=== PATIENT | female | born 1955 | race Caucasian/White ===

== ENCOUNTER 2019-05-02 10:32 | Inpatient (IN) | payer MEDICARE, OTHER ==
[2019-05-02] MEDS ORDERED: MAGNESIUM SULFATE/D5W 1 GM/100 ML RTUPB IV ONE (10:44)
[2019-05-02] MEDS ORDERED: METHYLPREDNISOLONE INJ 125 MG/2 ML SDV ONE (10:44)
[2019-05-02] MEDS ORDERED: IPRATROPIUM/ALBUTEROL 0.5-2.5 MG/3 ML AMPUL NEB ONE ×2 (10:44→11:08)
[2019-05-02] MEDS: MAGNESIUM SULFATE/D5W 1 GM/100 ML RTUPB IV SCH ×2 (10:47→10:56)
[2019-05-02 10:57] LABS: HEMATOCRIT 41.7 % (36.0-47.0); HEMOGLOBIN 13.9 g/dL (12.0-15.5); MEAN CORPUSCULAR HEMOGLOBIN 31.2 pg (27.0-33.4); MEAN CORPUSCULAR HGB CONC 33.3 g/dL (32.0-36.0); MEAN CORPUSCULAR VOLUME 94 fl (80-97); PLATELET COUNT 204 10^3/uL (150-450); RED BLOOD COUNT 4.46 10^6/uL (3.72-5.28); RED CELL DISTRIBUTION WIDTH 13.7 % (11.5-14.0); WHITE BLOOD COUNT 15.9 10^3/uL (4.0-10.5)
[2019-05-02 11:01] LABS: INTERNATIONAL RATION (INR) 1.12; PROTHROMBIN TIME 14.5 SEC (11.4-15.4)
[2019-05-02] MEDS ORDERED: NORMAL SALINE 1000 ML 2,000 ML IV ONE (11:08)
--- NOTE | 2019-05-02 11:08 | RADIOLOGY REPORT (SQ) ---
EXAM DESCRIPTION: CHEST SINGLE VIEW COMPLETED DATE/TIME: 05/02/2019 10:53 am REASON FOR STUDY: bed t2 sepsis protocol COMPARISON: None. EXAM PARAMETERS: NUMBER OF VIEWS: One view. TECHNIQUE: Single frontal radiographic view of the chest acquired. RADIATION DOSE: NA LIMITATIONS: None. FINDINGS: LUNGS AND PLEURA: Extensive left upper lobe consolidation and ground-glass opacities. Sma ll left effusion. Unremarkable right hemithorax. No pneumothorax. MEDIASTINUM AND HILAR STRUCTURES: No masses. Contour normal. HEART AND VASCULAR STRUCTURES: Normal heart size. Aortic atherosclerosis. BONES: No acute findings. HARDWARE: None in the chest. OTHER: No other significant finding. IMPRESSION: Extensive left upper lobe airspace disease compatible with pneumonia. Small left parapn eumonic effusion. TECHNICAL DOCUMENTATION: JOB ID: [id number] [employer]- All Rights Reserved Reading location - IP/workstation name: [email or web address]
--- NOTE | 2019-05-02 11:09 | ER Document Report ---
Entered by TIARRA ELIZONDO SCRIBE 05/02/19 1044 Acting as scribe for:VALORIE PETERS IV, MD ED General - General Chief Complaint: Shortness Of Breath Stated Complaint: SHORTNESS OF BREATH Mode of Arrival: Medic Information source: Emergency Med Personnel Notes: This 63 year old female patient with a history of COPD brought in by EMS presents to the ED today with complaints of shortness of breath and dyspnea that began prior to arrival per EMS. EMS states that when they arrived on the scene, the patient was laying face down on a table. EMS states that the patient complained of difficulty breathing for the past x3 days and that she was on 5L of O2. EMS reports that the patients lungs were clear initially, but after administering 500 LR Bolus, the patient developed a wheeze. EMS notes that the patient did not complain of reproducible chest pain and that the patient was in a tripod position. EMS states that the patient's CO2 levels were 29-low 30s and that her color has improved upon arrival to the ED. EMS states that the patient is usually 92% on 5L O2 at home. - Related Data Allergies/Adverse Reactions: codeine Allergy (Verified 05/02/19 15:27) Sulfa (Sulfonamide Antibiotics) Allergy (Verified 05/02/19 15:26) Past Medical History - General Information source: Emergency Med Personnel - Social History Smoking Status: Unknown if Ever Smoked Cigarette use (# per day): No Chew tobacco use (# tins/day): No Smoking Education Provided: No Family History: Reviewed & Not Pertinent Pulmonary Medical History: Reports: Hx COPD Review of Systems - Review of Systems Constitutional: No symptoms reported EENT: No symptoms reported Cardiovascular: See HPI, Dyspnea. denies: Chest pain Respiratory: See HPI, Short of breath, Wheezing Gastrointestinal: No symptoms reported Genitourinary: No symptoms reported Female Genitourinary: No symptoms reported Musculoskeletal: No symptoms reported Skin: No symptoms reported Hematologic/Lymphatic: No symptoms reported Neurological/Psychological: No symptoms reported -: Yes All other systems reviewed and negative Physical Exam - Vital signs Vitals: Pulse Ox 92 05/02/19 10:36 - General General appearance: Alert, Other - AAOx3 In distress: Moderate - HEENT Head: Normocephalic, Atraumatic Eyes: Normal Pupils: PERRL - Respiratory Respiratory status: Respiratory distress, Tripod position, Other - Using accessory muscles to breathe Chest status: Nontender Breath sounds: Other - Diminished breath sounds in all lung franco. No: Wheezing Chest palpation: Normal - Cardiovascular Rhythm: Regular Heart sounds: Normal auscultation Murmur: No - Abdominal Inspection: Normal Distension: No distension Bowel sounds: Normal Tenderness: Nontender - Abdomen soft Organomegaly: No organomegaly - Back Back: Normal, Nontender - Extremities General upper extremity: Normal inspection General lower extremity: Normal inspection. No: Edema - No peripheral edema - Neurological Neuro grossly intact: Yes - Psychological Associated symptoms: Normal affect, Normal mood - Skin Skin Temperature: Warm Skin Moisture: Dry Skin Color: Normal Course - Re-evaluation Re-evalutation: 05/02/19 12:01 Discussed with patient need for central line for blood pressure. Patient is refusing to lay flat in the bed. Patient states she is short of breath and is unable to lie flat. Patient states she is also agitated. This MD ordered 2.5 mg of Valium IV and will reassess the patient to see if she feels more comfortable with laying supine for placement of central line. Levophed has been started peripherally at this point. - Vital Signs Vital signs: Temp Pulse Resp BP Pulse Ox 100.4 F 96 26 H 101/66 96 05/02/19 19:14 05/02/19 18:00 05/02/19 19:14 05/02/19 19:14 05/02/19 19:14 - Laboratory Result Diagrams: 05/02/19 10:38 05/02/19 10:38 Laboratory results interpreted by me: 05/02/19 05/02/19 05/02/19 10:38 10:38 10:40 WBC 15.9 H Seg Neuts % (Manual) 87 H Lymphocytes % (Manual) 2 L Abs Neuts (Manual) 14.5 H Abs Lymphs (Manual) 0.3 L VBG pH Sodium 134.8 L Potassium 2.8 L* Chloride 96 L Est GFR ( Amer) 56 L Est GFR (MDRD) Non-Af 46 L Lactic Acid 3.7 H Direct Bilirubin 0.5 H Total Protein 4.9 L Albumin 2.5 L 05/02/19 10:51 WBC Seg Neuts % (Manual) Lymphocytes % (Manual) Abs Neuts (Manual) Abs Lymphs (Manual) VBG pH 7.25 L Sodium Potassium Chloride Est GFR ( Amer) Est GFR (MDRD) Non-Af Lactic Acid Direct Bilirubin Total Protein Albumin - EKG Interpretation by Me Additional EKG results interpreted by me: 05/02/19 12:32 EKG obtained at 1040 hrs. on 05/29/2019 was interpreted by this MD. Findings sinus tachycardia with a rate of 114, normal axis, P waves preceding QRS complexes, QRS complexes appear narrow, there is no obvious evidence of ST segment elevation or depression to suggest acute myocardial injury or infarction. Impression sinus tachycardia with nonspecific ST segments. - Consults DR. ULLOA Time consulted: 11:50 - Dr. Ulloa stated the patient needs a central line Reason for consultation: 05/02/19 12:02 Pneumonia with BiPAP on vasopressor Consulted provider: will come to ER Critical Care Note - Critical Care Note Total time excluding time spent on procedures (mins): 60 Discharge - Discharge Clinical Impression: Left upper lobe pneumonia, Sepsis Condition: Critical Disposition: ADMITTED INPATIENT Admitting Provider: LAILA COW WASHER Unit Admitted: ICU I personally performed the services described in the documentation, reviewed and edited the documentation which was dictated to the scribe in my presence, and it accurately records my words and actions.
[2019-05-02 11:13] LABS: VENOUS BLOOD BASE EXCESS -1.7 mmol/L; VENOUS BLOOD HCO3 26.7 mmol/L (20-32); VENOUS BLOOD PCO2 62.4 mmHg (35-63); VENOUS BLOOD PH 7.25 (7.30-7.42)
[2019-05-02 11:18] LABS: ALBUMIN 2.5 g/dL (3.5-5.0); ALKALINE PHOSPHATASE 103 U/L (38-126); ANION GAP 11 (5-19); ASPARTATE AMINO TRANSFERASE 15 U/L (14-36); BILIRUBIN,DIRECT 0.5 mg/dL (0.0-0.4); BLOOD UREA NITROGEN 16 mg/dL (7-20); CALCIUM 8.4 mg/dL (8.4-10.2); CARBON DIOXIDE 28 mmol/L (22-30); CHLORIDE 96 mmol/L (98-107); GLUCOSE 86 mg/dL (75-110); TOTAL PROTEIN 4.9 g/dL (6.3-8.2)
[2019-05-02 11:23] LABS: ABSOLUTE LYMPHOCYTES# (MANUAL) 0.3 10^3/uL (0.5-4.7); ABSOLUTE MONOCYTES # (MANUAL) 1.1 10^3/uL (0.1-1.4); BAND NEUTROPHILS % (MANUAL) 4 % (3-5); BASOPHILS % (MANUAL) 0 % (0-2); EOSINOPHILS % (MANUAL) 0 % (0-6); LYMPHOCYTES % (MANUAL) 2 % (13-45); MONOCYTES % (MANUAL) 7 % (3-13); SEGMENTED NEUTROPHILS % (MAN) 87 % (42-78); TOTAL CELLS COUNTED 100
[2019-05-02 11:24] LABS: PLATELET COMMENT ADEQUATE
[2019-05-02 11:25] LABS: PLATELET LARGE PRESENT; POLYCHROMASIA SLIGHT
[2019-05-02 11:29] LABS: POTASSIUM 2.8 mmol/L (3.6-5.0)
[2019-05-02] MEDS ORDERED: LEVOFLOXACIN 750 MG/D5W RTU 750 MG/150 ML RTUPB IV ONE ×2 (11:36→11:53)
[2019-05-02] MEDS ORDERED: NORMAL SALINE IV ONE (11:36)
[2019-05-02] MEDS ORDERED: PIPERACILLIN/TAZOBACTAM 4.5 GM VIAL IV ONE ×2 (11:36→13:48)
[2019-05-02] MEDS ORDERED: DEXTROSE 5%-WATER 250 ML with NOREPINEPHRINE BITARTRATE 4 MG IV PRN ×2 (11:45)
[2019-05-02] MEDS ORDERED: NOREPINEPHRINE BITARTRATE INJ/PF 4 MG/4 ML SDV IV ONE ×3 (11:54→14:58)
[2019-05-02] MEDS ORDERED: DIAZEPAM INJ 10 MG/2 ML DISP.SYRIN IV ONE (11:59)
[2019-05-02] MEDS ORDERED: PROPOFOL 1,000 MG/100 ML INFUS..BTL IV PRN ×2 (13:06→13:22)
[2019-05-02] MEDS ORDERED: PROPOFOL INJ 200 MG/20 ML VIAL IV ONE ×4 (13:11→14:16)
[2019-05-02] MEDS ORDERED: NORMAL SALINE 1000 ML 1,000 ML IV PRN (13:22)
[2019-05-02] MEDS ORDERED: ACETAMINOPHEN 325 MG TABLET PO PRN (13:22)
[2019-05-02] MEDS ORDERED: ONDANSETRON 4 MG TAB.RAPDIS NG PRN (13:22)
[2019-05-02] MEDS ORDERED: SUCCINYLCHOLINE CHLORIDE INJ 200 MG/10 ML VIAL IV ONE ×2 (13:28→13:32)
[2019-05-02] MEDS ORDERED: PHARMACY COMMUNICATION ORDER MC NR (13:30)
[2019-05-02] MEDS ORDERED: ETOMIDATE INJ/PF 20 MG/10 ML SDV IV ONE (13:31)
--- NOTE | 2019-05-02 13:38 | Operative Report ---
Bedside Procedure - History of Present Illness History of Present Illness: COPD and CAP. Septic shock Indication for Procedure: Need levophed Date: 05/02/19 Provider: SAGRARIO ULLOA - Central Line Right Internal jugular Time completed: 13:00 Central line pre-insertion: Sterile PPE donned, Chloraprep applied, Sterile drapes applied Central line lumen type: Triple Anesthetic type: 1% Lidocaine mL's of anesthesia: 3 Ultrasound guided: No Line secured with sutures: Yes Central line post-insertion: Blood return from lumens, Sutured, Sterile dressing applied, Position confirmed w/ CXR Complications: No
[2019-05-02] MEDS ORDERED: ACETAMINOPHEN SOLN 325 MG/10.15 ML UDCUP NG PRN (13:40)
--- NOTE | 2019-05-02 13:50 | RADIOLOGY REPORT (SQ) ---
EXAM DESCRIPTION: CHEST SINGLE VIEW COMPLETED DATE/TIME: 05/02/2019 1:36 pm REASON FOR STUDY: ETT TUBE, CENTRAL LINE, NG TUBE PLACEMENT COMPARISON: Same day radiograph EXAM PARAMETERS: NUMBER OF VIEWS: One view. TECHNIQUE: Single frontal radiographic view of the chest acquired. RADIATION DOSE: NA LIMITATIONS: None. FINDINGS: LUNGS AND PLEURA: Persistent dense left upper lobe airspace disease and small effusion. U nremarkable right hemithorax. No pneumothorax. MEDIASTINUM AND HILAR STRUCTURES: Stable. HEART AND VASCULAR STRUCTURES: Stable. BONES: No acute findings. HARDWARE: Endotracheal tube tip overlies midthoracic trachea, 5 cm above the didi. Right internal jugular central venous catheter tip at cavoatrial junction. Enteric tube tip overlies distal esophag us. OTHER: No other significant finding. IMPRESSION: 1. Endotracheal tube tip overlies midthoracic trachea. 2. Anterior to overlies distal esophagus. Recommend repositioning and advancing at least 10 cm. 3. Right internal jugular central venous catheter tip at cavoatrial junction. No pneumothorax. RECOMMENDATIONS: Repositioning TECHNICAL DOCUMENTATION: JOB ID: [id number] [employer]- All Rights Reserved Reading location - IP/workstation name: [email or web address]
--- NOTE | 2019-05-02 13:55 | CRITICAL CARE ADMISSION REPORT ---
HPI Date:: 05/02/19 Time:: 13:00 Reason for ICU Reason:: Intubated for CAP, septic shock. HPI: The patient is a 63 year old woman with known severe COPD on 5 L O2 at home. She has been getting more SOB at home and is sleepy and not well arousable. She has a YONI CAP by CAXR and is tripoding in position, unable to talk much and willing to accept intubation. She has been intubated with a #7 ETT under etomidate sedation by myself. She tolerated this and central line placement well. History obtained from:: Pt and - Diagnosis/Plan (1) Septic shock Is this a current diagnosis for this admission?: Yes Plan: She has WBC > 15. Tachypnea > 25 and tachycardia > 100 and is on levophed after volume loading. With a lactate of 4.1 this qualifies for septic shock. She will be treated with antibiotics, levophed, IVF and steroids. (2) Hypoadrenalism Is this a current diagnosis for this admission?: Yes Plan: She is on 10mg a day of prednisone down recently from 20mg. This in the face of septic shock makes her hypoadrenal. Treat with stress steroids. (3) COPD exacerbation Is this a current diagnosis for this admission?: Yes Plan: Undoubtably triggered by her pneumonia. Treat with steroids, breathing treatments. (4) Left upper lobe pneumonia Is this a current diagnosis for this admission?: Yes Plan: CAP, likely a strep pneumoniae. Treat with levoquin - . Plan Summary: As above in the ICU Past Medical History Pulmonary Medical History: Reports: Chronic Obstructive Pulmonary Disease (COPD) Social/Family History - Social History Smoking Status: Unknown if Ever Smoked Review of Systems ROS unobtainable: Due to endotracheal tube Respiratory: PRESENT: dyspnea Physical Exam Vital Signs: Temp Pulse Resp BP Pulse Ox 21 H 80/61 L 97 05/02/19 12:16 05/02/19 12:16 05/02/19 12:16 Intake & Output 05/01/19 05/02/19 05/03/19 06:59 06:59 06:59 Intake Total 2208 Balance 2208 Weight 73.1 kg Weight/Height Weight 73.1 kg Height 5 ft 6 in General appearance: PRESENT: severe distress Head exam: PRESENT: atraumatic, normocephalic Eye exam: PRESENT: conjunctiva pink, EOMI, PERRLA. ABSENT: scleral icterus Ear exam: PRESENT: normal external ear exam Mouth exam: PRESENT: moist, tongue midline Respiratory exam: PRESENT: accessory muscle use, decreased breath sounds, prolonged expiratory phas, retraction Cardiovascular exam: PRESENT: tachycardia GI/Abdominal exam: PRESENT: normal bowel sounds, soft. ABSENT: distended, guarding, mass, organolmegaly, rebound, tenderness Rectal exam: PRESENT: deferred Gentrourinary exam: PRESENT: indwelling catheter Extremities exam: PRESENT: full ROM Musculoskeletal exam: PRESENT: normal inspection Neurological exam: PRESENT: altered, other - Sedated, sleepy before intubation. Skin exam: PRESENT: dry, intact, warm. ABSENT: cyanosis, rash Tubes/Lines: PRESENT: Endotracheal Tube, Central Line, Nasogastic Tube Laboratory/Radiographs Laboratory Results: 05/02/19 10:38 05/02/19 10:38 05/02/19 05/02/19 05/02/19 10:38 10:38 10:40 WBC 15.9 H RBC 4.46 Hgb 13.9 Hct 41.7 MCV 94 MCH 31.2 MCHC 33.3 RDW 13.7 Plt Count 204 Seg Neutrophils % Not Reportable VBG pH VBG pCO2 VBG HCO3 VBG Base Excess Sodium 134.8 L Potassium 2.8 L* Chloride 96 L Carbon Dioxide 28 Anion Gap 11 BUN 16 Creatinine 1.18 Est GFR ( Amer) 56 L Glucose 86 Lactic Acid 3.7 H Calcium 8.4 Total Bilirubin 1.0 AST 15 Alkaline Phosphatase 103 Total Protein 4.9 L Albumin 2.5 L 05/02/19 10:51 WBC RBC Hgb Hct MCV MCH MCHC RDW Plt Count Seg Neutrophils % VBG pH 7.25 L VBG pCO2 62.4 VBG HCO3 26.7 VBG Base Excess -1.7 Sodium Potassium Chloride Carbon Dioxide Anion Gap BUN Creatinine Est GFR ( Amer) Glucose Lactic Acid Calcium Total Bilirubin AST Alkaline Phosphatase Total Protein Albumin 05/02/19 10:38 Troponin I < 0.012 Impressions: Chest X-Ray 05/02/19 10:36 IMPRESSION: Extensive left upper lobe airspace disease compatible with pneumonia. Small left parapneumonic effusion. All labs, radiographs, diagnostic studies and EKGs were personally reviewed: Yes In addition, reports of radiographic and diagnostic studies were read: Yes Critical Time Critical Time (minutes): 40 -: The care of a critically ill patient is dynamic. This note represents a static moment in the admission process. Orders and treatments may be given simul taneously and urgently, and time is not claim service representative of the treatment process. This patient requires Critical Care secondary to life threatening organ or limb dysfunction. Without Critical Care services, the patient is at risk for increased mortality and morbidity.
--- NOTE | 2019-05-02 14:29 | RADIOLOGY REPORT (SQ) ---
EXAM DESCRIPTION: KUB/ABDOMEN (SINGLE VIEW) COMPLETED DATE/TIME: 05/02/2019 2:06 pm REASON FOR STUDY: Check Placement of NG Tube COMPARISON: None. NUMBER OF VIEWS: Two images from 1357 hours 05/02/2019 TECHNIQUE: Supine radiographic image of the abdomen acquired for nasogastric tube placement. LIMITATIONS: None. FINDINGS: Stomach is distended with air. Initial film demonstrates the nasogastric tube tip at the GE junction. Second film demonstrates the tube has been advanced 10 cm, with the tip in the stomach and side port at the GE junction. Stomach is distended. Remainder of the GI tract is decompressed. Clips right upper quadrant post cholecystectomy. Lung ba ses are grossly clear. IMPRESSION: Nasogastric tube tip in the stomach, side port at the GE junction. Mild persistent gase ous distention of the stomach. TECHNICAL DOCUMENTATION: JOB ID: [id number] [employer]- All Rights Reserved Reading location - IP/workstation name: [email or web address]
[2019-05-02] MEDS ORDERED: DEXMEDETOMIDINE IN 0.9 % NACL 400 MCG/100 ML RTUPB IV ONE (14:43)
[2019-05-02] MEDS: IPRATROPIUM/ALBUTEROL 0.5-2.5 MG/3 ML AMPUL NEB SCH ×2 (14:54→21:02)
[2019-05-02] MEDS ORDERED: AZITHROMYCIN INJ 500 MG VIAL IV ONE (15:17)
[2019-05-02] MEDS ORDERED: IBUPROFEN 800 MG TABLET PO PRN (15:20)
[2019-05-02] MEDS: POTASSIUM CHLORIDE 20 MEQ/50 ML RTU IV SCH ×3 (15:39→20:52)
[2019-05-02] MEDS: FAMOTIDINE INJ/PF 20 MG/2 ML SDV IV SCH ×2 (15:40→21:12)
[2019-05-02] MEDS: ENOXAPARIN SODIUM INJ 40 MG/0.4 ML DISP.SYRIN SUBCUT SCH (15:40)
[2019-05-02] MEDS: LORAZEPAM INJ 2 MG/1 ML VIAL IV PRN ×2 (15:48→18:57)
[2019-05-02] MEDS: HYDROCORTISONE SOD SUCCINATE INJ/PF 100 MG/2 ML SDV IV SCH ×2 (15:55→21:11)
[2019-05-02] MEDS ORDERED: DEXMEDETOMIDINE IN NS 400 MCG/100 ML RTUPB IV PRN (16:11)
[2019-05-02] MEDS ORDERED: PHENYLEPHRINE HCL INJ/PF 10 MG/1 ML SDV ONE (17:43)
[2019-05-02] MEDS: DEXTROSE 5%-WATER 250 ML with NOREPINEPHRINE BITARTRATE 4 MG IV PRN ×4 (17:58→22:56)
[2019-05-02] MEDS ORDERED: AZITHROMYCIN 500 MG in DEXTROSE 5%-WATER 250 ML IV SCH (18:00)
[2019-05-02] MEDS: DEXTROSE 5%-WATER 250 ML with PHENYLEPHRINE HCL 40 MG IV PRN ×2 (18:04)
[2019-05-02 18:25] LABS: ARTERIAL BLOOD BASE EXCESS -8.5 mmol/L; ARTERIAL BLOOD H2CO3 1.05 mmol/L (1.05-1.35); ARTERIAL BLOOD HCO3 16.9 mmol/L (20-24); ARTERIAL BLOOD TOTAL CO2 17.9 mmol/L (21-25)
[2019-05-02 18:27] LABS: ARTERIAL BLOOD FIO2 40%
[2019-05-02] MEDS: FENTANYL CITRATE/PF 600 MCG/60 ML BAG IV PRN (19:08)
[2019-05-02 19:09] LABS: A TYPE INFLUENZA AG NEGATIVE (NEGATIVE); B INFLUENZA AG NEGATIVE (NEGATIVE)
--- NOTE | 2019-05-02 19:33 | EKG REPORT ---
SEVERITY:- BORDERLINE ECG - SINUS TACHYCARDIA RIGHT BUNDLE BRANCH BLOCK AND LEFT POST FASCICULAR BLOCK. BORDERLINE T ABNORMALITIES, ANT-LAT LEADS : Confirmed by: Valeriano Rodriguez MD 02-May-2019 19:32:56
[2019-05-02] MEDS: NORMAL SALINE 1000 ML 1,000 ML IV PRN (19:58)
[2019-05-02] MEDS ORDERED: NORMAL SALINE INJ/PF 0.9% 10 ML SDV IV PRN (20:10)
[2019-05-02] MEDS ORDERED: SUCCINYLCHOLINE CHLORIDE INJ 200 MG/10 ML VIAL ONE (20:12)
[2019-05-02] MEDS: TRAZODONE HCL 50 MG TABLET PO SCH (21:11)
[2019-05-02] MEDS: SENNOSIDES/DOCUSATE 8.6-50 MG 1 EACH TABLET PO SCH (21:11)
[2019-05-02] MEDS: CEFTRIAXONE 1 GM/D5W RTU 1 GM/50 ML RTUPB IV SCH (21:12)
[2019-05-02] MEDS ORDERED: (PENDING PHARMACY ID) (Trazodone Hcl [Desyrel] 100 MG) PO SCH (22:00)
[2019-05-03 00:13] LABS: ARTERIAL BLOOD BASE EXCESS -11.9 mmol/L; ARTERIAL BLOOD H2CO3 1.02 mmol/L (1.05-1.35); ARTERIAL BLOOD HCO3 14.4 mmol/L (20-24); ARTERIAL BLOOD O2 SATURATION 89.8 % (94-98); ARTERIAL BLOOD PCO2 33.8 mmHg (35-45); ARTERIAL BLOOD PH 7.25 (7.35-7.45); ARTERIAL BLOOD PO2 65.4 mmHg (80-100); ARTERIAL BLOOD TOTAL CO2 15.4 mmol/L (21-25)
[2019-05-03 00:15] LABS: ARTERIAL BLOOD FIO2 30%
[2019-05-03 00:24] LABS: BLOOD UREA NITROGEN 18 mg/dL (7-20); CHLORIDE 107 mmol/L (98-107); GLUCOSE 176 mg/dL (75-110); PHOSPHORUS 4.4 mg/dL (2.5-4.5)
[2019-05-03 00:35] LABS: POTASSIUM 5.3 mmol/L (3.6-5.0)
[2019-05-03 00:36] LABS: ANION GAP 9 (5-19)
[2019-05-03 00:38] LABS: CARBON DIOXIDE 16 mmol/L (22-30)
[2019-05-03 00:39] LABS: CALCIUM 6.1 mg/dL (8.4-10.2)
[2019-05-03] MEDS: DEXTROSE 5%-WATER 250 ML with PHENYLEPHRINE HCL 40 MG IV PRN ×4 (01:04→08:34)
[2019-05-03] MEDS: NORMAL SALINE 1000 ML 1,000 ML IV PRN ×5 (01:04→19:55)
[2019-05-03] MEDS ORDERED: SODIUM BICARBONATE 8.4% INJ 50 MEQ/50 ML DISP.SYRIN ONE ×2 (01:10→01:25)
[2019-05-03] MEDS: DEXTROSE 5%-WATER 1000 ML 1,000 ML with SODIUM BICARBONATE 150 MEQ IV PRN ×4 (01:35→14:02)
[2019-05-03] MEDS ORDERED: SODIUM BICARBONATE 8.4% INJ 50 MEQ/50 ML DISP.SYRIN IV ONE (01:45)
[2019-05-03] MEDS: FENTANYL CITRATE/PF 600 MCG/60 ML BAG IV PRN ×4 (01:47→19:54)
[2019-05-03] MEDS: IPRATROPIUM/ALBUTEROL 0.5-2.5 MG/3 ML AMPUL NEB SCH ×4 (02:23→20:24)
[2019-05-03 04:31] LABS: HEMATOCRIT 34.2 % (36.0-47.0); MEAN CORPUSCULAR HEMOGLOBIN 31.3 pg (27.0-33.4); MEAN CORPUSCULAR HGB CONC 33.6 g/dL (32.0-36.0); MEAN CORPUSCULAR VOLUME 93 fl (80-97); PLATELET COUNT 151 10^3/uL (150-450); RED BLOOD COUNT 3.66 10^6/uL (3.72-5.28); RED CELL DISTRIBUTION WIDTH 13.7 % (11.5-14.0); WHITE BLOOD COUNT 19.7 10^3/uL (4.0-10.5)
[2019-05-03 04:39] LABS: ANION GAP 8 (5-19); BLOOD UREA NITROGEN 18 mg/dL (7-20); CARBON DIOXIDE 20 mmol/L (22-30); CHLORIDE 107 mmol/L (98-107); GLUCOSE 178 mg/dL (75-110); POTASSIUM 4.6 mmol/L (3.6-5.0)
[2019-05-03 05:08] LABS: HEMOGLOBIN 11.5 g/dL (12.0-15.5)
[2019-05-03 05:12] LABS: ABSOLUTE LYMPHOCYTES# (MANUAL) 0.4 10^3/uL (0.5-4.7); ABSOLUTE MONOCYTES # (MANUAL) 0.8 10^3/uL (0.1-1.4); BAND NEUTROPHILS % (MANUAL) 1 % (3-5); BASOPHILS % (MANUAL) 0 % (0-2); EOSINOPHILS % (MANUAL) 0 % (0-6); LYMPHOCYTES % (MANUAL) 2 % (13-45); MONOCYTES % (MANUAL) 4 % (3-13); SEGMENTED NEUTROPHILS % (MAN) 93 % (42-78); TOTAL CELLS COUNTED 100
[2019-05-03 05:14] LABS: BURR CELLS 2+; OVALOCYTES 1+; POIKILOCYTOSIS 1+; TOXIC GRANULATION 1+
[2019-05-03 05:15] LABS: PLATELET COMMENT ADEQUATE
[2019-05-03] MEDS: HYDROCORTISONE SOD SUCCINATE INJ/PF 100 MG/2 ML SDV IV SCH ×3 (05:17→21:36)
[2019-05-03] MEDS ORDERED: PHENYLEPHRINE HCL INJ/PF 10 MG/1 ML SDV ONE (08:29)
[2019-05-03] MEDS: CEFTRIAXONE 1 GM/D5W RTU 1 GM/50 ML RTUPB IV SCH ×2 (09:24→21:35)
[2019-05-03] MEDS: FAMOTIDINE INJ/PF 20 MG/2 ML SDV IV SCH ×2 (09:24→21:36)
[2019-05-03] MEDS: ENOXAPARIN SODIUM INJ 40 MG/0.4 ML DISP.SYRIN SUBCUT SCH (09:25)
[2019-05-03] MEDS: PAROXETINE HCL 20 MG TABLET PO SCH (09:26)
[2019-05-03] MEDS: BUSPIRONE HCL 10 MG TABLET PO SCH (09:26)
[2019-05-03] MEDS ORDERED: LEVOFLOXACIN 500 MG/D5W RTU 500 MG/100 ML RTUPB IV SCH (10:00)
[2019-05-03] MEDS ORDERED: (PENDING PHARMACY ID) (Buspirone Hcl [Buspar 15 Mg Tablet] 1 TAB) PO SCH (10:00)
[2019-05-03] MEDS ORDERED: CALCIUM GLUCONATE 1000 MG/10 ML INJ IV ONE ×2 (10:49→15:13)
[2019-05-03] MEDS: CALCIUM GLUCONATE 1000 MG/10 ML INJ IV PRN ×5 (10:58→16:20)
[2019-05-03] MEDS: DEXTROSE 5%-WATER 250 ML with NOREPINEPHRINE BITARTRATE 4 MG IV PRN ×4 (14:14→22:20)
[2019-05-03] MEDS: MEROPENEM 1 GM in NORMAL SALINE 50 ML IV SCH (15:16)
[2019-05-03 19:26] LABS: ALBUMIN 1.7 g/dL (3.5-5.0); ALKALINE PHOSPHATASE 148 U/L (38-126); ANION GAP 5 (5-19); ASPARTATE AMINO TRANSFERASE 279 U/L (14-36); BILIRUBIN,DIRECT 0.5 mg/dL (0.0-0.4); BILIRUBIN,TOTAL 0.7 mg/dL (0.2-1.3); BLOOD UREA NITROGEN 15 mg/dL (7-20); CARBON DIOXIDE 23 mmol/L (22-30); CHLORIDE 104 mmol/L (98-107); GLUCOSE 141 mg/dL (75-110); POTASSIUM 3.9 mmol/L (3.6-5.0); TOTAL PROTEIN 3.7 g/dL (6.3-8.2)
[2019-05-03] MEDS: TRAZODONE HCL 50 MG TABLET PO SCH (21:35)
[2019-05-03] MEDS: SENNOSIDES/DOCUSATE 8.6-50 MG 1 EACH TABLET PO SCH (21:35)
[2019-05-04] MEDS: LORAZEPAM INJ 2 MG/1 ML VIAL IV PRN ×3 (00:49→18:57)
[2019-05-04] MEDS: FENTANYL CITRATE/PF 600 MCG/60 ML BAG IV PRN ×2 (01:51→08:55)
[2019-05-04] MEDS: IPRATROPIUM/ALBUTEROL 0.5-2.5 MG/3 ML AMPUL NEB SCH ×4 (02:53→20:14)
[2019-05-04 04:44] LABS: HEMATOCRIT 30.1 % (36.0-47.0); HEMOGLOBIN 10.2 g/dL (12.0-15.5); MEAN CORPUSCULAR HEMOGLOBIN 31.1 pg (27.0-33.4); MEAN CORPUSCULAR HGB CONC 33.8 g/dL (32.0-36.0); MEAN CORPUSCULAR VOLUME 92 fl (80-97); PLATELET COUNT 102 10^3/uL (150-450); RED BLOOD COUNT 3.27 10^6/uL (3.72-5.28); RED CELL DISTRIBUTION WIDTH 13.9 % (11.5-14.0); WHITE BLOOD COUNT 16.3 10^3/uL (4.0-10.5)
[2019-05-04 04:51] LABS: ALBUMIN 1.7 g/dL (3.5-5.0); ALKALINE PHOSPHATASE 134 U/L (38-126); ASPARTATE AMINO TRANSFERASE 156 U/L (14-36); BILIRUBIN,DIRECT 0.4 mg/dL (0.0-0.4); BILIRUBIN,TOTAL 0.5 mg/dL (0.2-1.3); BLOOD UREA NITROGEN 14 mg/dL (7-20); GLUCOSE 129 mg/dL (75-110); POTASSIUM 3.7 mmol/L (3.6-5.0); TOTAL PROTEIN 3.6 g/dL (6.3-8.2)
[2019-05-04] MEDS: MEROPENEM 1 GM in NORMAL SALINE 50 ML IV SCH ×2 (05:02→17:32)
[2019-05-04] MEDS: HYDROCORTISONE SOD SUCCINATE INJ/PF 100 MG/2 ML SDV IV SCH ×3 (05:02→21:46)
[2019-05-04] MEDS: DEXTROSE 5%-WATER 1000 ML 1,000 ML with SODIUM BICARBONATE 150 MEQ IV PRN ×2 (05:02)
[2019-05-04] MEDS: NORMAL SALINE 1000 ML 1,000 ML IV PRN ×2 (05:03→17:30)
[2019-05-04 05:08] LABS: CARBON DIOXIDE 25 mmol/L (22-30); CHLORIDE 103 mmol/L (98-107)
[2019-05-04 05:11] LABS: ANION GAP 4 (5-19)
[2019-05-04 05:13] LABS: CALCIUM 6.9 mg/dL (8.4-10.2)
[2019-05-04 05:34] LABS: ABSOLUTE LYMPHOCYTES# (MANUAL) 0.5 10^3/uL (0.5-4.7); ABSOLUTE MONOCYTES # (MANUAL) 0.3 10^3/uL (0.1-1.4); BASOPHILS % (MANUAL) 0 % (0-2); EOSINOPHILS % (MANUAL) 0 % (0-6); LYMPHOCYTES % (MANUAL) 3 % (13-45); MONOCYTES % (MANUAL) 2 % (3-13); SEGMENTED NEUTROPHILS % (MAN) 95 % (42-78); TOTAL CELLS COUNTED 100
[2019-05-04 05:36] LABS: ANISOCYTOSIS SLIGHT; BURR CELLS SLIGHT; OVALOCYTES SLIGHT; PLATELET COMMENT ADEQUATE; POIKILOCYTOSIS SLIGHT; TOXIC GRANULATION 1+; TOXIC VACUOLATION PRESENT
--- NOTE | 2019-05-04 06:37 | RADIOLOGY REPORT (SQ) ---
EXAM DESCRIPTION: XR CHEST 1 VIEW COMPLETED DATE/TME: 05/04/2019 04:58 CLINICAL HISTORY: 63 years Female, resp failure COMPARISON: 2 days prior. NUMBER OF VIEWS/TECHNIQUE: 1/AP FINDINGS: Moderate mixed patchy and interstitial opacity predominantly in the left lung field. Adequate appearing endotracheal tube. Adequate appearing enteric tube partially obscured. Right jugular central line tip at the cavoatrial junction. Moderate patchy opacification-effusion of the left lower lobe-base. Normal cardiac silhouette size. No pneumothorax. Stable bony thorax. IMPRESSION: Moderate patchy opacification-effusion of the left lower lobe-base. Interval worsening.
[2019-05-04] MEDS ORDERED: CALCIUM GLUCONATE 1000 MG/10 ML INJ IV ONE ×2 (07:13→17:43)
[2019-05-04] MEDS ORDERED: ADENOSINE INJ/PF 6 MG/2 ML SDV IV ONE (08:19)
[2019-05-04] MEDS ORDERED: ESMOLOL HCL/SOD CL 2,500 MG/250 ML RTUINJ IV PRN (08:27)
[2019-05-04] MEDS ORDERED: ESMOLOL HCL/SOD CL 2,500 MG/250 ML RTUINJ IV ONE (08:31)
--- NOTE | 2019-05-04 09:03 | PDOC CRITICAL CARE PROG REPORT ---
General Date:: 05/04/19 ICU Day:: 3 Ventilator Day:: 3 Hospital Day:: 3 Resuscitation Status: Full Code Events in the past 12 to 24 Hours:: Lower presors, episode SVT-resolved Review of systems relevant to events:: Respiratory, ID, CV Reason for ICU Addmission:: Intubated for CAP, septic shock. - Medications: Medications reviewed and adjusted accordingly: Yes Vasopressors:: Levophed Sedation:: Fentanyl Physical Exam Vital Signs: Temp Pulse Resp BP Pulse Ox 99.3 F 92 16 92/60 L 92 05/04/19 07:50 05/04/19 07:52 05/04/19 07:52 05/04/19 07:50 05/04/19 07:52 Intake & Output 05/03/19 05/04/19 05/05/19 06:59 06:59 06:59 Intake Total 7870 5737 Output Total 467 1610 45 Balance 7403 4127 -45 Weight 79.6 kg 87.8 kg Weight/Height Weight 87.8 kg Height 5 ft 6 in General appearance: PRESENT: no acute distress Head exam: PRESENT: atraumatic, normocephalic Eye exam: PRESENT: conjunctiva pink, EOMI, PERRLA. ABSENT: scleral icterus Ear exam: PRESENT: normal external ear exam Mouth exam: PRESENT: moist, tongue midline Respiratory exam: PRESENT: crackles, decreased breath sounds, rhonchi, unlabored Cardiovascular exam: PRESENT: tachycardia, other - Episode of SVT up to 190 Pulses: PRESENT: normal dorsalis pedis pul Vascular exam: PRESENT: normal capillary refill GI/Abdominal exam: PRESENT: normal bowel sounds, soft. ABSENT: distended, guarding, mass, organolmegaly, rebound, tenderness Rectal exam: PRESENT: deferred Gentrourinary exam: PRESENT: indwelling catheter Extremities exam: PRESENT: full ROM. ABSENT: calf tenderness, clubbing, pedal edema Neurological exam: PRESENT: other - Sedated Skin exam: PRESENT: dry, intact, warm. ABSENT: cyanosis, rash Tubes/Lines: PRESENT: Endotracheal Tube, Central Line, Arterial Catheter, Nasogastic Tube Laboratory/Radiographs Laboratory Results: 05/04/19 04:13 05/04/19 04:13 05/03/19 05/03/19 05/03/19 09:15 14:30 14:30 WBC RBC Hgb Hct MCV MCH MCHC RDW Plt Count Seg Neutrophils % Sodium Potassium 4.0 Chloride Carbon Dioxide Anion Gap BUN Creatinine Est GFR ( Amer) Glucose Calcium Ionized Calcium Davida 0.93 L 1.03 L Magnesium 1.8 Total Bilirubin AST Alkaline Phosphatase Total Protein Albumin 05/03/19 05/04/19 05/04/19 18:50 04:13 04:13 WBC RBC Hgb Hct MCV MCH MCHC RDW Plt Count Seg Neutrophils % Sodium 132.2 L 132.3 L Potassium 3.9 3.7 Chloride 104 103 Carbon Dioxide 23 25 Anion Gap 5 4 L BUN 15 14 Creatinine 0.78 0.75 Est GFR ( Amer) > 60 > 60 Glucose 141 H 129 H Calcium 7.0 L* 6.9 L* Ionized Calcium Davida 1.04 L Magnesium Total Bilirubin 0.7 0.5 AST 279 H 156 H Alkaline Phosphatase 148 H 134 H Total Protein 3.7 L 3.6 L Albumin 1.7 L 1.7 L 05/04/19 04:13 WBC 16.3 H RBC 3.27 L Hgb 10.2 L Hct 30.1 L MCV 92 MCH 31.1 MCHC 33.8 RDW 13.9 Plt Count 102 L Seg Neutrophils % Not Reportable Sodium Potassium Chloride Carbon Dioxide Anion Gap BUN Creatinine Est GFR ( Amer) Glucose Calcium Ionized Calcium Davida Magnesium Total Bilirubin AST Alkaline Phosphatase Total Protein Albumin 05/02/19 10:38 Troponin I < 0.012 Impressions: KUB X-Ray 05/02/19 13:24 IMPRESSION: Nasogastric tube tip in the stomach, side port at the GE junction. Mild persistent gaseous distention of the stomach. Chest X-Ray 05/04/19 04:58 IMPRESSION: Moderate patchy opacification-effusion of the left lower lobe-base. Interval worsening. EKG: SVT-now broken All labs, radiographs, diagnostic studies and EKGs were personally reviewed: Yes In addition, reports of radiographic and diagnostic studies were read: Yes Assessment and Plan - Diagnosis (1) Septic shock Is this a current diagnosis for this admission?: Yes Plan: Septic shock due to pseudomonas, not pneumococcal. Still on levophed. Not resolved. (2) Hypoadrenalism Is this a current diagnosis for this admission?: Yes Plan: Continue stress steroids as patient is on home prednisone. (3) COPD exacerbation Is this a current diagnosis for this admission?: Yes Plan: Lungs remain with low peak and plateau pressures, no wheezing. (4) Left upper lobe pneumonia Qualifiers: Pneumonia type: due to Pseudomonas Qualified Code(s): J15.1 - Pneumonia due to Pseudomonas Is this a current diagnosis for this admission?: Yes Plan: Culture is positive for pseudomona. Sensitive to Meropenem. Pt has been caring for sick mother possibl the source. Will need one week of coverage. (5) SVT (supraventricular tachycardia) Is this a current diagnosis for this admission?: Yes Plan: One episode to 190 associated with brief hypotension to 68/43. Resolved with adenosine 6mg. Likely due to stress hormones such as epinephrine and to an extent norepinephrine. On esmolol drip to blunt catacholamines. Plan Summary: Check ABG to ensure resolving of acidosis. If so start weaning process. Wean levophed as mu as possible. Critical Time Critical Time (minutes): 45 Level of Care: ICU Anticipated discharge: Home Within: Other - Too soon to tell. -: 1. The care of a critical patient is a dynamic process. This note is a eligibility services representative synopsis but static in nature. The timeframe for treatments given in order is not necessarily the actual time these treatments may have been done. 2. This patient requires critical care secondary to ongoing requirements for therapy not offered or safe outside the critical care environment. Transfer to a lower level of care will result in altered life or limb morbidity and mortality. 3. Multidisciplinary rounds completed. 4. ABCDE bundle addressed.
[2019-05-04] MEDS: BUSPIRONE HCL 10 MG TABLET PO SCH (09:10)
[2019-05-04] MEDS: PAROXETINE HCL 20 MG TABLET PO SCH (09:10)
[2019-05-04] MEDS: FAMOTIDINE INJ/PF 20 MG/2 ML SDV IV SCH ×2 (09:11→21:46)
[2019-05-04] MEDS: CEFTRIAXONE 1 GM/D5W RTU 1 GM/50 ML RTUPB IV SCH (09:11)
[2019-05-04] MEDS: ENOXAPARIN SODIUM INJ 40 MG/0.4 ML DISP.SYRIN SUBCUT SCH (09:11)
[2019-05-04 09:14] LABS: ARTERIAL BLOOD BASE EXCESS -1.1 mmol/L; ARTERIAL BLOOD FIO2 45%; ARTERIAL BLOOD H2CO3 1.45 mmol/L (1.05-1.35); ARTERIAL BLOOD HCO3 25.1 mmol/L (20-24); ARTERIAL BLOOD O2 SATURATION 93.3 % (94-98); ARTERIAL BLOOD PCO2 48.2 mmHg (35-45); ARTERIAL BLOOD PH 7.33 (7.35-7.45); ARTERIAL BLOOD PO2 71.5 mmHg (80-100); ARTERIAL BLOOD TOTAL CO2 26.6 mmol/L (21-25)
[2019-05-04] MEDS ORDERED: CALCIUM GLUCONATE 2,000 MG in DEXTROSE 5%-WATER 100 ML IV ONE ×2 (09:30→18:00)
[2019-05-04] MEDS: AMINO AC/PROTEIN HYDR/WHEY PRO 11 GM/45 ML PKT NG SCH ×2 (15:42→17:37)
[2019-05-04 16:40] LABS: POTASSIUM 3.8 mmol/L (3.6-5.0)
[2019-05-04] MEDS ORDERED: FUROSEMIDE INJ/PF 40 MG/4 ML SDV IV ONE (17:00)
[2019-05-04] MEDS ORDERED: ALBUMIN HUMAN 12.5 GM/50 ML RTUINJ IV SCH (17:00)
[2019-05-04] MEDS: ALBUMIN HUMAN 12.5 GM/50 ML RTUINJ IV SCH ×2 (17:33→23:03)
[2019-05-04] MEDS: FUROSEMIDE INJ/PF 40 MG/4 ML SDV IV SCH ×2 (17:33→23:44)
[2019-05-04] MEDS ORDERED: ALTEPLASE INJ 2 MG VIAL (CATH CLEARANCE) IV ONE (17:38)
[2019-05-04] MEDS: TRAZODONE HCL 50 MG TABLET PO SCH (21:45)
[2019-05-04] MEDS: SENNOSIDES/DOCUSATE 8.6-50 MG 1 EACH TABLET PO SCH (21:45)
[2019-05-04 23:26] LABS: ANION GAP 6 (5-19); BLOOD UREA NITROGEN 16 mg/dL (7-20); CALCIUM 7.9 mg/dL (8.4-10.2); CARBON DIOXIDE 29 mmol/L (22-30); CHLORIDE 100 mmol/L (98-107); GLUCOSE 105 mg/dL (75-110)
[2019-05-04 23:32] LABS: POTASSIUM 2.8 mmol/L (3.6-5.0)
[2019-05-04] MEDS: POTASSIUM CHLORIDE 20 MEQ/50 ML RTU IV SCH (23:51)
[2019-05-05] MEDS: POTASSIUM CHLORIDE 20 MEQ/50 ML RTU IV SCH ×2 (01:08→03:20)
[2019-05-05] MEDS: POTASSI CL 20 MEQ/50 ML RIDER 20 MEQ/50 ML RTUPB IV SCH ×2 (01:11→04:41)
[2019-05-05] MEDS: IPRATROPIUM/ALBUTEROL 0.5-2.5 MG/3 ML AMPUL NEB SCH ×4 (02:31→20:18)
[2019-05-05] MEDS: LORAZEPAM INJ 2 MG/1 ML VIAL IV PRN ×2 (02:49→06:26)
[2019-05-05] MEDS: FUROSEMIDE INJ/PF 40 MG/4 ML SDV IV SCH (04:50)
[2019-05-05] MEDS: ALBUMIN HUMAN 12.5 GM/50 ML RTUINJ IV SCH (04:50)
[2019-05-05 05:37] LABS: ARTERIAL BLOOD H2CO3 1.21 mmol/L (1.05-1.35); ARTERIAL BLOOD HCO3 31.7 mmol/L (20-24); ARTERIAL BLOOD O2 SATURATION 93.4 % (94-98); ARTERIAL BLOOD PCO2 40.3 mmHg (35-45); ARTERIAL BLOOD PH 7.51 (7.35-7.45); ARTERIAL BLOOD PO2 60.7 mmHg (80-100); ARTERIAL BLOOD TOTAL CO2 32.9 mmol/L (21-25)
[2019-05-05] MEDS: MEROPENEM 1 GM in NORMAL SALINE 50 ML IV SCH ×2 (05:39→17:21)
[2019-05-05 05:40] LABS: HEMATOCRIT 28.8 % (36.0-47.0); HEMOGLOBIN 9.8 g/dL (12.0-15.5); MEAN CORPUSCULAR HEMOGLOBIN 31.2 pg (27.0-33.4); MEAN CORPUSCULAR VOLUME 92 fl (80-97); RED BLOOD COUNT 3.15 10^6/uL (3.72-5.28); RED CELL DISTRIBUTION WIDTH 13.8 % (11.5-14.0); WHITE BLOOD COUNT 13.9 10^3/uL (4.0-10.5)
[2019-05-05] MEDS: HYDROCORTISONE SOD SUCCINATE INJ/PF 100 MG/2 ML SDV IV SCH ×3 (05:40→21:40)
[2019-05-05] MEDS: NORMAL SALINE 1000 ML 1,000 ML IV PRN (05:40)
[2019-05-05 05:41] LABS: ARTERIAL BLOOD FIO2 45%
[2019-05-05 05:58] LABS: BLOOD UREA NITROGEN 17 mg/dL (7-20); CALCIUM 7.7 mg/dL (8.4-10.2); CARBON DIOXIDE 33 mmol/L (22-30); CHLORIDE 100 mmol/L (98-107); GLUCOSE 112 mg/dL (75-110); POTASSIUM 3.2 mmol/L (3.6-5.0)
[2019-05-05 06:05] LABS: ABSOLUTE LYMPHOCYTES# (MANUAL) 0.3 10^3/uL (0.5-4.7); ABSOLUTE MONOCYTES # (MANUAL) 0.3 10^3/uL (0.1-1.4); BASOPHILS % (MANUAL) 0 % (0-2); EOSINOPHILS % (MANUAL) 0 % (0-6); LYMPHOCYTES % (MANUAL) 2 % (13-45); MONOCYTES % (MANUAL) 2 % (3-13); SEGMENTED NEUTROPHILS % (MAN) 96 % (42-78); TOTAL CELLS COUNTED 100
[2019-05-05 06:09] LABS: ANISOCYTOSIS SLIGHT; OVALOCYTES 1+; POIKILOCYTOSIS SLIGHT
--- NOTE | 2019-05-05 06:15 | RADIOLOGY REPORT (SQ) ---
EXAM DESCRIPTION: XR CHEST 1 VIEW COMPLETED DATE/TME: 05/05/2019 00:00 CLINICAL HISTORY: 63 years, Female, Respiratory Failure COMPARISON: 05/04/2019 NUMBER OF VIEWS: One TECHNIQUE: AP view the chest LIMITATIONS: None. FINDINGS: There are grossly stable left upper lobe and left basilar opacities. The right lung remains clear. A left pleural effusion is likely present. The heart size is stable. No pneumothorax. The right IJ line, endotracheal tube, and nasogastric tubes remain in satisfactory position. IMPRESSION: No significant change compared to the prior exam. copyright 2010 [employer]- All Rights Reserved
[2019-05-05 06:17] LABS: PLATELET COMMENT DECREASED
[2019-05-05 06:18] LABS: PLATELET COUNT 90 10^3/uL (150-450)
[2019-05-05 06:27] LABS: ANION GAP 4 (5-19)
[2019-05-05] MEDS ORDERED: CALCIUM GLUCONATE 1000 MG/10 ML INJ IV PRN (06:44)
[2019-05-05] MEDS ORDERED: MIDAZOLAM 2 MG/2 ML INJ ONE (09:00)
[2019-05-05] MEDS ORDERED: FENTANYL CITRATE INJ/PF 100 MCG/2 ML AMPUL ONE (09:14)
[2019-05-05] MEDS: CALCIUM GLUCONATE 1,000 MG in DEXTROSE 5%-WATER 50 ML IV SCH (09:53)
[2019-05-05] MEDS: PAROXETINE HCL 20 MG TABLET PO SCH (09:54)
[2019-05-05] MEDS: BUSPIRONE HCL 10 MG TABLET PO SCH (09:54)
[2019-05-05] MEDS: AMINO AC/PROTEIN HYDR/WHEY PRO 11 GM/45 ML PKT NG SCH ×3 (09:56→18:01)
[2019-05-05] MEDS: FONDAPARINUX SODIUM INJ 2.5 MG/0.5 ML DISP.SYRIN SUBCUT SCH (10:54)
[2019-05-05] MEDS: FUROSEMIDE INJ/PF 20 MG/2 ML SDV IV SCH ×2 (10:55→11:56)
[2019-05-05] MEDS: FAMOTIDINE 20 MG TABLET PO SCH ×2 (10:55→21:41)
[2019-05-05 11:02] LABS: FLUID APPEARANCE CLOUDY; FLUID COLOR PINK; FLUID SOURCE LUNG; FLUID TYPE BRONCHIAL WASH; FLUID VISCOSITY LIQUID
[2019-05-05] MEDS ORDERED: MIDAZOLAM 2 MG/2 ML INJ IV PRN (11:44)
[2019-05-05] MEDS ORDERED: FENTANYL CITRATE INJ/PF 100 MCG/2 ML AMPUL IV PRN (11:44)
--- NOTE | 2019-05-05 12:18 | Operative Report ---
Bedside Procedure - History of Present Illness History of Present Illness: The patient is a 63 year old woman with known severe COPD on 5 L O2 at home. She has been getting more SOB at home and is sleepy and not well arousable. She has a YONI CAP by CAXR and is tripoding in position, unable to talk much and willing to accept intubation. She has been intubated with a #7 ETT under etomidate sedation by myself. She tolerated this and central line placement well. Has pseudomonas pneumonia with increased secretions, some of which are bloody. Procedure Procedure: Pre-procedure DX: Pseudomonas pneumonia with concern for post-obstructive disease Post-procedure DX: same, without bronchial obstruction Proceduralist: DO Lion[facility] Sedation: Conscious while on Mechanical Ventilation, fentanyl and Versed EBL: None Complications: None Findings: No endobronchial lesions noted. Mild mucosal irritation especially the left upper and lingual segments. Mild dynamic airway compression. Difficult secretions partially occluding endotracheal tube cleared. Mild to moderate secretions in the left upper lobe cleared and BAL completed. It is much as could be seen, modified by the confines of the ET tube, there were no endobronchial lesions down to the second and some tertiary segments. Please note that the confines of the ET tube precluded deeper evaluation. Consent was obtained at bedside given by . Patient had already been intubated with an ET tube and this was used for the disposable flexible bronchoscopy. Entrance into the ET tube there was notable biofilm and significant mucosal obstruction which was partially bloody. This was cleaned and lavaged with clearance. The right lobe was evaluated first in that it appeared to be free of disease on chest x-ray. There were normal anatomic segments. There was no gross obstructions or masses. Left lung was then evaluated. There was moderate mucosal irritation with mild suction trauma noted. The left upper lobe and lingula were evaluated and a BAL was done. There was inflammation in the peribronchial segments with mucosal irritation. There was not significant mucous impaction. Patient tolerated the procedure well. There were no hemodynamic changes during the continuous evaluation. Ventilator changes were made to facilitate ease of bronchoscopy. These changes were then converted back to previous settings. This procedure excludes critical care time Indication for Procedure: pseudomonas pneumonia with bloody secretions Date: 05/02/19 Provider: DEANGELO FERNÁNDEZ
[2019-05-05] MEDS ORDERED: POTASSIUM CHLORIDE 20 MEQ PACKET PO ONE (13:30)
[2019-05-05 15:08] LABS: ARTERIAL BLOOD BASE EXCESS 7.8 mmol/L; ARTERIAL BLOOD H2CO3 1.18 mmol/L (1.05-1.35); ARTERIAL BLOOD HCO3 31.2 mmol/L (20-24); ARTERIAL BLOOD O2 SATURATION 96.8 % (94-98); ARTERIAL BLOOD PCO2 39.1 mmHg (35-45); ARTERIAL BLOOD PH 7.52 (7.35-7.45); ARTERIAL BLOOD PO2 79.7 mmHg (80-100); ARTERIAL BLOOD TOTAL CO2 32.4 mmol/L (21-25)
[2019-05-05 15:11] LABS: ARTERIAL BLOOD FIO2 50%
--- NOTE | 2019-05-05 16:07 | PDOC CRITICAL CARE PROG REPORT ---
General Date:: 05/05/19 ICU Day:: 3 Ventilator Day:: 3 Hospital Day:: 3 Resuscitation Status: Full Code Medical Power of Server Security Administrator: Andreea Events in the past 12 to 24 Hours:: 1.6.2020: Patient continues to have improvement overall. She has been weaned off all vasopressor support. She is on fentanyl sedation and has been given intermittent Ativan. No seizures noted, no hemodynamic instability noted despite SVT and tachycardia 24 hours ago. Nurses have noted increased secretions which are somewhat bloody from the ET tube while she was on PSV yesterday. Required conventional mechanical ventilation support overnight. Review of systems relevant to events:: Patient underwent bronchoscopy today because of secretions which showed inflammation of the left upper lobe with mild mucus and significant ET tube obstruction from biofilm and mucus. Areas were lavaged. She has been placed on pressure support after her sedation wore off. There is been no hypotension. She had been on a bicarbonate drip because of persistent acidosis and this has been discontinued secondary to alkalosis. She is also been diuresing with Lasix. Reason for ICU Addmission:: Intubated for CAP, septic shock. - Medications: Vasopressors:: Levophed now off Sedation:: Fentanyl-now off Physical Exam Vital Signs: Temp Pulse Resp BP Pulse Ox 99.9 F 81 17 119/53 L 96 05/05/19 14:00 05/05/19 14:30 05/05/19 14:30 05/05/19 14:00 05/05/19 14:30 Intake & Output 05/04/19 05/05/19 05/06/19 06:59 06:59 06:59 Intake Total 5798 2840 425 Output Total 1615 3385 1750 Balance 4127 -8887 -1327 Weight 87.8 kg 86.7 kg Weight/Height Weight 86.7 kg Height 5 ft 6 in General appearance: PRESENT: no acute distress, obese, well-developed, well-nourished Exam: Intubated, nontoxic, slightly obese 63-year-old white female no active distress. Responds to voice by opening eyes. Head exam: PRESENT: atraumatic, normocephalic Eye exam: PRESENT: conjunctiva pink, PERRLA. ABSENT: conjunctival injection, nystagmus, scleral icterus Neck exam: ABSENT: carotid bruit, JVD, lymphadenopathy, thyromegaly Respiratory exam: PRESENT: rhonchi - On left, unlabored. ABSENT: rales, tachypnea, wheezes Cardiovascular exam: PRESENT: RRR, +S1, +S2. ABSENT: diastolic murmur, rubs, systolic murmur Pulses: PRESENT: +1 pedal pulses bilateral GI/Abdominal exam: PRESENT: normal bowel sounds, soft. ABSENT: ascites, distended, guarding, mass, organolmegaly, rebound, tenderness Rectal exam: PRESENT: deferred Gentrourinary exam: PRESENT: indwelling catheter Extremities exam: ABSENT: pedal edema Musculoskeletal exam: PRESENT: normal inspection. ABSENT: deformity, d islocation Neurological exam: PRESENT: altered - Opens eyes to voice. FOUR Score: E: 2 Motor: 3 BS: 4 Respiration: 1= 10 on sedation Psychiatric exam: PRESENT: flat affect Focused psych exam: ABSENT: psychomotor agitation, restlessness Skin exam: PRESENT: dry, intact, normal color, warm. ABSENT: cyanosis, pallor, petechiae, rash Tubes/Lines: PRESENT: Endotracheal Tube, Central Line, Arterial Catheter, Other - OGT and cunha catheter Laboratory/Radiographs Laboratory Results: 05/05/19 05:25 05/05/19 11:15 05/04/19 05/04/19 05/04/19 15:50 16:20 22:45 WBC RBC Hgb Hct MCV MCH MCHC RDW Plt Count Seg Neutrophils % Carbonic Acid HCO3/H2CO3 Ratio ABG pH ABG pCO2 ABG pO2 ABG HCO3 ABG O2 Saturation ABG Base Excess FiO2 Sodium Potassium 3.8 Chloride Carbon Dioxide Anion Gap BUN Creatinine Est GFR ( Amer) Glucose Calcium Ionized Calcium Davida 1.06 L 1.15 Magnesium 2.0 Fluid Type Fluid Source Fluid Color Fluid Appearance Fluid Viscosity Fluid WBC Fluid RBC 05/04/19 05/05/19 05/05/19 22:45 05:25 05:25 WBC RBC Hgb Hct MCV MCH MCHC RDW Plt Count Seg Neutrophils % Carbonic Acid 1.21 HCO3/H2CO3 Ratio 26:1 ABG pH 7.51 H ABG pCO2 40.3 ABG pO2 60.7 L ABG HCO3 31.7 H ABG O2 Saturation 93.4 L ABG Base Excess 8.0 FiO2 45% Sodium 134.7 L 137.4 Potassium 2.8 L* D 3.2 L Chloride 100 100 Carbon Dioxide 29 33 H Anion Gap 6 4 L BUN 16 17 Creatinine 0.75 0.74 Est GFR ( Amer) > 60 > 60 Glucose 105 112 H Calcium 7.9 L 7.7 L Ionized Calcium Davida 1.06 L Magnesium 1.7 1.7 Fluid Type Fluid Source Fluid Color Fluid Appearance Fluid Viscosity Fluid WBC Fluid RBC 05/05/19 05/05/19 05/05/19 05:25 09:21 11:15 WBC 13.9 H RBC 3.15 L Hgb 9.8 L Hct 28.8 L MCV 92 MCH 31.2 MCHC 34.0 RDW 13.8 Plt Count 90 L Seg Neutrophils % Not Reportable Carbonic Acid HCO3/H2CO3 Ratio ABG pH ABG pCO2 ABG pO2 ABG HCO3 ABG O2 Saturation ABG Base Excess FiO2 Sodium Potassium 2.7 L* Chloride Carbon Dioxide Anion Gap BUN Creatinine Est GFR ( Amer) Glucose Calcium Ionized Calcium Davida Magnesium Fluid Type BRONCHIAL WASH Fluid Source LUNG Fluid Color PINK Fluid Appearance CLOUDY Fluid Viscosity LIQUID Fluid WBC 481 Fluid RBC 1650 05/05/19 15:00 WBC RBC Hgb Hct MCV MCH MCHC RDW Plt Count Seg Neutrophils % Carbonic Acid 1.18 HCO3/H2CO3 Ratio 26:1 ABG pH 7.52 H ABG pCO2 39.1 ABG pO2 79.7 L ABG HCO3 31.2 H ABG O2 Saturation 96.8 ABG Base Excess 7.8 FiO2 50% Sodium Potassium Chloride Carbon Dioxide Anion Gap BUN Creatinine Est GFR ( Amer) Glucose Calcium Ionized Calcium Davida Magnesium Fluid Type Fluid Source Fluid Color Fluid Appearance Fluid Viscosity Fluid WBC Fluid RBC 05/02/19 18:15 Tracheal Aspirate Gram Stain - Final 05/02/19 18:15 Tracheal Aspirate Sputum Culture - Final Pseudomonas Aeruginosa Greatly Reduced Normal Nichole 05/02/19 10:38 Troponin I < 0.012 Impressions: KUB X-Ray 05/02/19 13:24 IMPRESSION: Nasogastric tube tip in the stomach, side port at the GE junction. Mild persistent gaseous distention of the stomach. Chest X-Ray 05/05/19 00:00 IMPRESSION: No significant change compared to the prior exam. copyright 2010 [employer]- All Rights Reserved All labs, radiographs, diagnostic studies and EKGs were personally reviewed: Yes In addition, reports of radiographic and diagnostic studies were read: Yes Assessment and Plan - Diagnosis (1) Septic shock Is this a current diagnosis for this admission?: Yes Plan: 05.05.2019: Improved. Off vasopressors. Start diuresis 05.04.2019: Dr. Dias:Septic shock due to pseudomonas, not pneumococcal. Still on levophed. Not resolved. (2) Pneumonia due to Pseudomonas aeruginosa Is this a current diagnosis for this admission?: Yes (3) Acute respiratory failure with hypoxia Is this a current diagnosis for this admission?: Yes (4) Acute kidney injury Is this a current diagnosis for this admission?: Yes (5) Metabolic acidosis Is this a current diagnosis for this admission?: Yes (6) Metabolic alkalosis Is this a current diagnosis for this admission?: Yes (7) SVT (supraventricular tachycardia) Is this a current diagnosis for this admission?: Yes Plan: 05.05.2019: Resolved. Quiescent 05.04.2019: Dr. Dias:One episode to 190 associated with brief hypotension to 68/43. Resolved with adenosine 6mg. Likely due to stress hormones such as epinephrine and to an extent norepinephrine. On esmolol drip to blunt catacholamines. (8) Acute exacerbation of emphysema Is this a current diagnosis for this admission?: Yes (9) Hypokalemia due to excessive renal loss of potassium Is this a current diagnosis for this admission?: Yes (10) Chronic use of steroids Is this a current diagnosis for this admission?: Yes (11) Adrenal cortex insufficiency Is this a current diagnosis for this admission?: Yes Plan: From chronic steroid use (12) Dependence on continuous supplemental oxygen Is this a current diagnosis for this admission?: Yes (13) Emphysema of lung Qualifiers: Emphysema type: unspecified Qualified Code(s): J43.9 - Emphysema, unspecified Is this a current diagnosis for this admission?: Yes Plan Summary: 05.05.2019: From a respiratory standpoint patient has had increased secretions while on pressure support. She underwent bronchoscopy today which was positive for significant biofilm and entrained secretions in her endotracheal tube. This was cleaned and a BAL was done of the left upper lobe which showed mild to moderate inflammation. Start slow push pressure support wean with higher level of PEEP to assure prevention of atelectasis. Chest x-ray shows slight improvement in left upper lobe infiltrate however this is on positive pressure. BAL sent and will follow. From an infectious disease standpoint, patient's respiratory culture shows pansensitive Pseudomonas. This most likely represent a community-acquired which is seen in approximately 5% of the population. She is also been around significant illness with her mother who had a GI illness. Continue meropenem for a total of 7 days. Follow-up on BAL. From a cardiac standpoint her SVT has resolved and this most likely represents an acute responsive reactive tachycardia related to her sepsis. It is quiescent at this point and we will continue to monitor her while in the ICU. From an endocrine standpoint we will begin to wean steroids in the next 24 hours. Patient did present with acute renal failure as evidenced by the improvement and a level greater than 0.3 consistent with KDIGO standards/guidelines. This has improved. We will start diuresis but change to Diamox. The patient has a metabolic alkalosis and a respiratory alkalosis as well. We will start Diamox to help diurese and hold Lasix. Had been on a bicarbonate drip because of persistent acidosis and have discontinued this as well. Neurological standpoint patient is opening eyes however has been given intermittent Ativan and has been on fentanyl. I have discontinued all of these and will watch for neurological improvement. There are no focal findings and she is moving extremities to stimulus. Overall plans for today are continued ventilator wean at higher PEEP and reduction in sedation. Continue antibiotics for total of 7 days. Diuresis with Diamox and follow labs because of her hypokalemia. Critical Time Critical Time (minutes): 70 - Multiple repeat examination for liberation from ventilator Level of Care: ICU Anticipated discharge: Acute Rehab Within: within 72 hours -: 1. The care of a critical patient is a dynamic process. This note is a account retention representative synopsis but static in nature. The timeframe for treatments given in order is not necessarily the actual time these treatments may have been done. 2. This patient requires critical care secondary to ongoing requirements for therapy not offered or safe outside the critical care environment. Transfer to a lower level of care will result in altered life or limb morbidity and mortality. 3. Multidisciplinary rounds completed. 4. ABCDE bundle addressed.
[2019-05-05 17:47] LABS: BLOOD UREA NITROGEN 22 mg/dL (7-20); CALCIUM 7.8 mg/dL (8.4-10.2); CARBON DIOXIDE 34 mmol/L (22-30); GLUCOSE 124 mg/dL (75-110); POTASSIUM 3.3 mmol/L (3.6-5.0)
[2019-05-05 17:53] LABS: CHLORIDE 101 mmol/L (98-107)
[2019-05-05] MEDS: ACETAZOLAMIDE SODIUM INJ 500 MG VIAL IV SCH ×2 (17:54→21:40)
[2019-05-05 17:58] LABS: ANION GAP 4 (5-19)
[2019-05-05] MEDS: SENNOSIDES/DOCUSATE 8.6-50 MG 1 EACH TABLET PO SCH (21:41)
[2019-05-05] MEDS: TRAZODONE HCL 50 MG TABLET PO SCH (21:59)
[2019-05-06] MEDS: IPRATROPIUM/ALBUTEROL 0.5-2.5 MG/3 ML AMPUL NEB SCH ×4 (02:20→21:17)
[2019-05-06 03:31] LABS: HEMATOCRIT 30.1 % (36.0-47.0); HEMOGLOBIN 10.1 g/dL (12.0-15.5); MEAN CORPUSCULAR HEMOGLOBIN 30.9 pg (27.0-33.4); MEAN CORPUSCULAR HGB CONC 33.6 g/dL (32.0-36.0); MEAN CORPUSCULAR VOLUME 92 fl (80-97); RED BLOOD COUNT 3.27 10^6/uL (3.72-5.28); RED CELL DISTRIBUTION WIDTH 14.1 % (11.5-14.0); WHITE BLOOD COUNT 12.8 10^3/uL (4.0-10.5)
[2019-05-06] MEDS ORDERED: HALOPERIDOL LACTATE INJ 5 MG/1 ML VIAL ONE ×2 (03:31→03:34)
[2019-05-06] MEDS ORDERED: HALOPERIDOL LACTATE INJ 5 MG/1 ML VIAL IV ONE ×2 (03:31→03:33)
[2019-05-06] MEDS ORDERED: FENTANYL CITRATE INJ/PF 100 MCG/2 ML AMPUL ONE ×2 (03:34→06:41)
[2019-05-06] MEDS ORDERED: FENTANYL CITRATE INJ/PF 100 MCG/2 ML AMPUL IV ONE ×4 (03:41→21:30)
[2019-05-06 03:44] LABS: ARTERIAL BLOOD BASE EXCESS 4.8 mmol/L; ARTERIAL BLOOD H2CO3 1.22 mmol/L (1.05-1.35); ARTERIAL BLOOD HCO3 28.8 mmol/L (20-24); ARTERIAL BLOOD O2 SATURATION 93.7 % (94-98); ARTERIAL BLOOD PCO2 40.4 mmHg (35-45); ARTERIAL BLOOD PH 7.47 (7.35-7.45)
[2019-05-06 03:45] LABS: ARTERIAL BLOOD FIO2 40%
[2019-05-06 03:51] LABS: PLATELET COUNT 97 10^3/uL (150-450)
[2019-05-06 03:54] LABS: ABSOLUTE LYMPHOCYTES# (MANUAL) 0.1 10^3/uL (0.5-4.7); ABSOLUTE MONOCYTES # (MANUAL) 0.1 10^3/uL (0.1-1.4); BASOPHILS % (MANUAL) 0 % (0-2); EOSINOPHILS % (MANUAL) 0 % (0-6); LYMPHOCYTES % (MANUAL) 1 % (13-45); MONOCYTES % (MANUAL) 1 % (3-13); SEGMENTED NEUTROPHILS % (MAN) 98 % (42-78); TOTAL CELLS COUNTED 100
[2019-05-06 03:56] LABS: BLOOD UREA NITROGEN 22 mg/dL (7-20); CALCIUM 7.7 mg/dL (8.4-10.2); CARBON DIOXIDE 32 mmol/L (22-30); GLUCOSE 146 mg/dL (75-110); PHOSPHORUS 2.5 mg/dL (2.5-4.5)
[2019-05-06 03:57] LABS: ANISOCYTOSIS SLIGHT; OVALOCYTES 1+; PLATELET COMMENT DECREASED; POIKILOCYTOSIS 1+; SCHISTOCYTES SLIGHT; TOXIC GRANULATION 1+
[2019-05-06 04:01] LABS: POTASSIUM 2.7 mmol/L (3.6-5.0)
[2019-05-06 04:02] LABS: ANION GAP 4 (5-19); CHLORIDE 104 mmol/L (98-107)
[2019-05-06] MEDS: POTASSIUM CHLORIDE 20 MEQ/50 ML RTU IV SCH ×6 (04:31→22:50)
[2019-05-06] MEDS ORDERED: PHOSPHORUS #1 250 MG TABLET NG ONE (05:00)
[2019-05-06] MEDS: MEROPENEM 1 GM in NORMAL SALINE 50 ML IV SCH ×2 (05:27→18:34)
[2019-05-06] MEDS: HYDROCORTISONE SOD SUCCINATE INJ/PF 100 MG/2 ML SDV IV SCH ×3 (05:28→22:49)
[2019-05-06] MEDS: ACETAZOLAMIDE SODIUM INJ 500 MG VIAL IV SCH ×3 (05:28→18:34)
--- NOTE | 2019-05-06 08:31 | RADIOLOGY REPORT (SQ) ---
EXAM DESCRIPTION: CHEST SINGLE VIEW COMPLETED DATE/TIME: 05/06/2019 6:25 am REASON FOR STUDY: pneumonia COMPARISON: 05/05/2019. EXAM PARAMETERS: NUMBER OF VIEWS: One view. TECHNIQUE: Single frontal radiographic view of the chest acquired. RADIATION DOSE: NA LIMITATIONS: None. FINDINGS: LUNGS AND PLEURA: Dense infiltrate in the left upper lobe, slightly improved. Faint densi ties in the lung bases. Left pleural effusion. MEDIASTINUM AND HILAR STRUCTURES: No masses. Contour normal. HEART AND VASCULAR STRUCTURES: Heart normal in size. Normal vasculature. BONES: No acute findings. HARDWARE: Stable endotracheal tube, nasogastric tube, and central venous catheter. OTHER: No other significant finding. IMPRESSION: SLIGHT IMPROVEMENT IN THE DENSE INFILTRATE OF THE LEFT UPPER LOBE. TECHNICAL DOCUMENTATION: JOB ID: [id number] [employer]- All Rights Reserved Reading location - IP/workstation name: [email or web address]
[2019-05-06] MEDS: DEXMEDETOMIDINE IN 0.9 % NACL 400 MCG/100 ML RTUPB IV PRN ×2 (08:50→17:00)
[2019-05-06] MEDS: FONDAPARINUX SODIUM INJ 2.5 MG/0.5 ML DISP.SYRIN SUBCUT SCH (09:26)
[2019-05-06] MEDS: AMINO AC/PROTEIN HYDR/WHEY PRO 11 GM/45 ML PKT NG SCH (09:26)
[2019-05-06] MEDS: BUSPIRONE HCL 10 MG TABLET PO SCH (09:27)
[2019-05-06] MEDS: PAROXETINE HCL 20 MG TABLET PO SCH (09:27)
[2019-05-06] MEDS: FAMOTIDINE 20 MG TABLET PO SCH (09:27)
[2019-05-06] MEDS: PHOSPHORUS #1 250 MG TABLET NG SCH ×2 (11:39→18:35)
[2019-05-06 11:54] LABS: ARTERIAL BLOOD BASE EXCESS 4.5 mmol/L; ARTERIAL BLOOD FIO2 40%; ARTERIAL BLOOD H2CO3 1.19 mmol/L (1.05-1.35); ARTERIAL BLOOD HCO3 28.4 mmol/L (20-24); ARTERIAL BLOOD O2 SATURATION 95.5 % (94-98); ARTERIAL BLOOD PCO2 39.5 mmHg (35-45); ARTERIAL BLOOD PH 7.48 (7.35-7.45); ARTERIAL BLOOD PO2 72.3 mmHg (80-100); ARTERIAL BLOOD TOTAL CO2 29.6 mmol/L (21-25)
[2019-05-06 16:01] LABS: ANION GAP 5 (5-19); BLOOD UREA NITROGEN 22 mg/dL (7-20); CARBON DIOXIDE 31 mmol/L (22-30); CHLORIDE 107 mmol/L (98-107); GLUCOSE 100 mg/dL (75-110)
[2019-05-06 16:09] LABS: POTASSIUM 2.8 mmol/L (3.6-5.0)
[2019-05-06] MEDS ORDERED: POTASSI CL 20 MEQ/50 ML RIDER 20 MEQ/50 ML RTUPB IV ONE (16:11)
--- NOTE | 2019-05-06 19:50 | PDOC CRITICAL CARE PROG REPORT ---
General Date:: 05/06/19 ICU Day:: 4 Ventilator Day:: 4 Hospital Day:: 4 Resuscitation Status: Full Code Medical Power of Ice Cream Dipper: Andreea Events in the past 12 to 24 Hours:: 05.06.2019: Patient has been weaning successfully and was placed on CPAP today. Secretions much improved. Bronchoscopy was done yesterday which alleviated some mucus obstruction especially in the ET tube. She has been more awake this morning and actually follow commands when asked to move her toes. She is trac lindsay this morning as well. She is extremely agitated off her medications and she was given fentanyl and and started on Precedex. 05.05.2019: Patient continues to have improvement overall. She has been weaned off all vasopressor support. She is on fentanyl sedation and has been given intermittent Ativan. No seizures noted, no hemodynamic instability noted despite SVT and tachycardia 24 hours ago. Nurses have noted increased secretions which are somewhat bloody from the ET tube while she was on PSV yesterday. Required conventional mechanical ventilation support overnight. Review of systems relevant to events:: 05.06.2019: Chest x-ray shows moderate improvement but left upper lobe is still positive for consolidation. She has had no hemodynamic instability. She has required intermittent fentanyl for pain and agitation. Was given Haldol. Transient increase in heart rate to 190 which responded to fentanyl earlier. 05.05.2019: Patient underwent bronchoscopy today because of secretions which showed inflammation of the left upper lobe with mild mucus and significant ET tube obstruction from biofilm and mucus. Areas were lavaged. She has been placed on pressure support after her sedation wore off. There is been no hypotension. She had been on a bicarbonate drip because of persistent acidosis and this has been discontinued secondary to alkalosis. She is also been diuresing with Lasix. Reason for ICU Addmission:: Intubated for CAP, septic shock. - Medications: Vasopressors:: Levophed discontinued Sedation:: Fentanyl-PRN and Haldol Physical Exam Vital Signs: Temp Pulse Resp BP Pulse Ox 99.5 F 73 23 H 152/72 H 99 05/06/19 16:00 05/06/19 18:00 05/06/19 18:00 05/06/19 18:00 05/06/19 18:00 Intake & Output 05/05/19 05/06/19 05/07/19 06:59 06:59 06:59 Intake Total 9620 722 250 Output Total 7595 3455 1150 Balance -0854 -2730 -900 Weight 86.7 kg 82.9 kg 82.9 kg Weight/Height Weight 82.9 kg Height 5 ft 6 in General appearance: PRESENT: no acute distress, well-developed, well-nourished Exam: Intubated ill appearing nontoxic 63-year-old female no active distress. Command following intermittently. She is now tracking with her eyes. Head exam: PRESENT: atraumatic, normocephalic Eye exam: PRESENT: PERRLA. ABSENT: conjunctival injection, nystagmus, scleral icterus Mouth exam: PRESENT: moist, neck supple Neck exam: ABSENT: carotid bruit, JVD, lymphadenopathy, thyromegaly Respiratory exam: PRESENT: clear to auscultation bill, unlabored. ABSENT: accessory muscle use, rales, rhonchi, tachypnea, wheezes Cardiovascular exam: PRESENT: RRR. ABSENT: diastolic murmur, rubs, systolic murmur Pulses: PRESENT: +1 pedal pulses bilateral GI/Abdominal exam: PRESENT: normal bowel sounds, soft. ABSENT: ascites, distended, guarding, mass, organolmegaly, rebound, tenderness Rectal exam: PRESENT: deferred Gentrourinary exam: PRESENT: indwelling catheter Extremities exam: ABSENT: pedal edema Musculoskeletal exam: ABSENT: deformity, dislocation Neurological exam: PRESENT: altered. ABSENT: motor sensory deficit - No focal deficits. Moves all extremities, tracking today but does not follow commands consistently Psychiatric exam: PRESENT: agitated - during exam. Improved with time on precedex and fentanyl Skin exam: PRESENT: dry, intact, warm. ABSENT: cyanosis, jaundice, rash Tubes/Lines: PRESENT: Endotracheal Tube, Central Line, Arterial Catheter, Nasogastic Tube, Other - gutierrez catheter Laboratory/Radiographs Laboratory Results: 05/06/19 03:15 05/06/19 15:01 05/06/19 05/06/19 05/06/19 03:15 03:15 03:15 WBC RBC Hgb Hct MCV MCH MCHC RDW Plt Count Seg Neutrophils % Carbonic Acid 1.22 HCO3/H2CO3 Ratio 23:1 ABG pH 7.47 H ABG pCO2 40.4 ABG pO2 64.0 L ABG HCO3 28.8 H ABG O2 Saturation 93.7 L ABG Base Excess 4.8 FiO2 40% Sodium 139.7 Potassium 2.7 L* Chloride 104 Carbon Dioxide 32 H Anion Gap 4 L BUN 22 H Creatinine 0.67 Est GFR ( Amer) > 60 Glucose 146 H Calcium 7.7 L Phosphorus 2.5 Magnesium 1.9 Ammonia 15.7 05/06/19 05/06/19 05/06/19 03:15 11:30 15:01 WBC 12.8 H RBC 3.27 L Hgb 10.1 L Hct 30.1 L MCV 92 MCH 30.9 MCHC 33.6 RDW 14.1 H Plt Count 97 L Seg Neutrophils % Not Reportable Carbonic Acid 1.19 HCO3/H2CO3 Ratio 23:1 ABG pH 7.48 H ABG pCO2 39.5 ABG pO2 72.3 L ABG HCO3 28.4 H ABG O2 Saturation 95.5 ABG Base Excess 4.5 FiO2 40% Sodium 143.1 Potassium 2.8 L* Chloride 107 Carbon Dioxide 31 H Anion Gap 5 BUN 22 H Creatinine 0.69 Est GFR ( Amer) > 60 Glucose 100 Calcium 8.0 L Phosphorus Magnesium Ammonia 05/05/19 09:21 Bronchial Washings AFB Smear Concentration - Final 05/05/19 09:21 Bronchial Washings Acid Fast Bacilli Smear - Final 05/05/19 09:21 Bronchial Washings Gram Stain - Final 05/02/19 10:38 Troponin I < 0.012 Impressions: KUB X-Ray 05/02/19 13:24 IMPRESSION: Nasogastric tube tip in the stomach, side port at the GE junction. Mild persistent gaseous distention of the stomach. Chest X-Ray 05/06/19 06:00 IMPRESSION: SLIGHT IMPROVEMENT IN THE DENSE INFILTRATE OF THE LEFT UPPER LOBE. All labs, radiographs, diagnostic studies and EKGs were personally reviewed: Yes In addition, reports of radiographic and diagnostic studies were read: Yes Assessment and Plan - Diagnosis (1) Septic shock Is this a current diagnosis for this admission?: Yes Plan: 05.06.2019: Resolved 05.05.2019: Improved. Off vasopressors. Start diuresis 05.04.2019: Dr. Dias:Septic shock due to pseudomonas, not pneumococcal. Still on levophed. Not resolved. (2) Pneumonia due to Pseudomonas aeruginosa Is this a current diagnosis for this admission?: Yes (3) Acute respiratory failure with hypoxia Is this a current diagnosis for this admission?: Yes (4) Acute kidney injury Is this a current diagnosis for this admission?: Yes (5) Metabolic acidosis Is this a current diagnosis for this admission?: Yes (6) Metabolic alkalosis Is this a current diagnosis for this admission?: Yes (7) SVT (supraventricular tachycardia) Is this a current diagnosis for this admission?: Yes (8) Acute exacerbation of emphysema Is this a current diagnosis for this admission?: Yes (9) Hypokalemia due to excessive renal loss of potassium Is this a current diagnosis for this admission?: Yes (10) Chronic use of steroids Is this a current diagnosis for this admission?: Yes (11) Adrenal cortex insufficiency Is this a current diagnosis for this admission?: Yes (12) Dependence on continuous supplemental oxygen Is this a current diagnosis for this admission?: Yes (13) Emphysema of lung Qualifiers: Emphysema type: unspecified Qualified Code(s): J43.9 - Emphysema, unspecified Is this a current diagnosis for this admission?: Yes Plan Summary: 05.06.2019: Patient went through liberation protocol successfully and after multiple evaluations was successfully liberated from the ventilator. She was immediately placed on high flow which has been weaning over time. She has significant need for antianxiety agents and pain meds for which she appears to be chronically on. I have maintained her on Precedex to allow for her to be more awake and able to swallow her medications. She has significant emphysema and is on 5 L of oxygen. I am impressed with her overall recovery and this is a testament to the initial care and evaluation by the admitting critical care team under the management of Dr. Shanks. We will continue to wean high flow oxygenation. We will need to be vigilant to watch for further SVTs. Continue antibiotics for at least 7 to 8 days. Today is day 4 Will attempt to remove central venous catheter and Gutierrez when she is more awake. Physical therapy and Occupational Therapy have been ordered. Follow-up on BAL. 05.05.2019: From a respiratory standpoint patient has had increased secretions while on pressure support. She underwent bronchoscopy today which was positive for significant biofilm and entrained secretions in her endotracheal tube. This was cleaned and a BAL was done of the left upper lobe which showed mild to moderate inflammation. Start slow push pressure support wean with higher level of PEEP to assure prevention of atelectasis. Chest x-ray shows slight improvement in left upper lobe infiltrate however this is on positive pressure. BAL sent and will follow. From an infectious disease standpoint, patient's respiratory culture shows pansensitive Pseudomonas. This most likely represent a community-acquired which is seen in approximately 5% of the population. She is also been around significant illness with her mother who had a GI illness. Continue meropenem for a total of 7 days. Follow-up on BAL. From a cardiac standpoint her SVT has resolved and this most likely represents an acute responsive reactive tachycardia related to her sepsis. It is quiescent at this point and we will continue to monitor her while in the ICU. From an endocrine standpoint we will begin to wean steroids in the next 24 hours. Patient did present with acute renal failure as evidenced by the improvement and a level greater than 0.3 consistent with KDIGO standards/guidelines. This has improved. We will start diuresis but change to Diamox. The patient has a metabolic alkalosis and a respiratory alkalosis as well. We will start Diamox to help diurese and hold Lasix. Had been on a bicarbonate drip because of persistent acidosis and have discontinued this as well. Neurological standpoint patient is opening eyes however has been given intermittent Ativan and has been on fentanyl. I have discontinued all of these and will watch for neurological improvement. There are no focal findings and she is moving extremities to stimulus. Overall plans for today are continued ventilator wean at higher PEEP and reduction in sedation. Continue antibiotics for total of 7 days. Diuresis with Diamox and follow labs because of her hypokalemia. Critical Time Critical Time (minutes): 65 Level of Care: ICU Anticipated discharge: Acute Rehab Within: within 48 hours -: 1. The care of a critical patient is a dynamic process. This note is a account development representative synopsis but static in nature. The timeframe for treatments given in order is not necessarily the actual time these treatments may have been done. 2. This patient requires critical care secondary to ongoing requirements for therapy not offered or safe outside the critical care environment. Transfer to a lower level of care will result in altered life or limb morbidity and mortality. 3. Multidisciplinary rounds completed. 4. ABCDE bundle addressed.
[2019-05-06] MEDS: SENNOSIDES/DOCUSATE 8.6-50 MG 1 EACH TABLET PO SCH (22:50)
[2019-05-06] MEDS: TRAZODONE HCL 50 MG TABLET PO SCH (22:50)
[2019-05-07] MEDS: HALOPERIDOL LACTATE INJ 5 MG/1 ML VIAL IV PRN ×3 (00:07→23:55)
[2019-05-07] MEDS: IPRATROPIUM/ALBUTEROL 0.5-2.5 MG/3 ML AMPUL NEB SCH ×4 (01:41→20:16)
[2019-05-07] MEDS: PHOSPHORUS #1 250 MG TABLET NG SCH (02:51)
[2019-05-07] MEDS: DEXMEDETOMIDINE IN 0.9 % NACL 400 MCG/100 ML RTUPB IV PRN ×2 (02:51→06:31)
[2019-05-07] MEDS: ACETAZOLAMIDE SODIUM INJ 500 MG VIAL IV SCH ×2 (03:33→09:12)
[2019-05-07] MEDS: MEROPENEM 1 GM in NORMAL SALINE 50 ML IV SCH ×2 (05:31→17:04)
[2019-05-07] MEDS: HYDROCORTISONE SOD SUCCINATE INJ/PF 100 MG/2 ML SDV IV SCH ×2 (05:32→14:08)
[2019-05-07 06:13] LABS: ARTERIAL BLOOD H2CO3 1.31 mmol/L (1.05-1.35); ARTERIAL BLOOD HCO3 24.4 mmol/L (20-24); ARTERIAL BLOOD O2 SATURATION 94.4 % (94-98); ARTERIAL BLOOD PCO2 43.5 mmHg (35-45); ARTERIAL BLOOD PH 7.37 (7.35-7.45); ARTERIAL BLOOD PO2 73.7 mmHg (80-100); ARTERIAL BLOOD TOTAL CO2 25.7 mmol/L (21-25)
[2019-05-07 06:16] LABS: ARTERIAL BLOOD FIO2 30%
[2019-05-07 06:26] LABS: HEMATOCRIT 32.6 % (36.0-47.0); HEMOGLOBIN 10.5 g/dL (12.0-15.5); MEAN CORPUSCULAR HEMOGLOBIN 30.3 pg (27.0-33.4); MEAN CORPUSCULAR HGB CONC 32.3 g/dL (32.0-36.0); MEAN CORPUSCULAR VOLUME 94 fl (80-97); PLATELET COUNT 148 10^3/uL (150-450); RED BLOOD COUNT 3.47 10^6/uL (3.72-5.28); RED CELL DISTRIBUTION WIDTH 14.6 % (11.5-14.0); WHITE BLOOD COUNT 12.1 10^3/uL (4.0-10.5)
[2019-05-07 06:35] LABS: ANION GAP 7 (5-19); BLOOD UREA NITROGEN 25 mg/dL (7-20); CALCIUM 8.1 mg/dL (8.4-10.2); CARBON DIOXIDE 28 mmol/L (22-30); CHLORIDE 111 mmol/L (98-107); GLUCOSE 82 mg/dL (75-110); PHOSPHORUS 4.3 mg/dL (2.5-4.5)
[2019-05-07] MEDS: POTASSIUM CHLORIDE 20 MEQ/50 ML RTU IV SCH ×5 (06:47→21:12)
[2019-05-07 06:48] LABS: ABSOLUTE MONOCYTES # (MANUAL) 0.8 10^3/uL (0.1-1.4); BASOPHILS % (MANUAL) 0 % (0-2); EOSINOPHILS % (MANUAL) 0 % (0-6); LYMPHOCYTES % (MANUAL) 8 % (13-45); MONOCYTES % (MANUAL) 7 % (3-13); SEGMENTED NEUTROPHILS % (MAN) 85 % (42-78); TOTAL CELLS COUNTED 100
[2019-05-07 06:50] LABS: ANISOCYTOSIS SLIGHT; OVALOCYTES SLIGHT; PLATELET COMMENT DECREASED
[2019-05-07] MEDS: BUSPIRONE HCL 10 MG TABLET PO SCH ×2 (09:13→09:27)
[2019-05-07] MEDS: PAROXETINE HCL 20 MG TABLET PO SCH ×2 (09:13→09:27)
[2019-05-07] MEDS: FONDAPARINUX SODIUM INJ 2.5 MG/0.5 ML DISP.SYRIN SUBCUT SCH (09:14)
--- NOTE | 2019-05-07 09:14 | RADIOLOGY REPORT (SQ) ---
EXAM DESCRIPTION: CHEST SINGLE VIEW COMPLETED DATE/TIME: 05/07/2019 6:27 am REASON FOR STUDY: pneumonia, post extubation COMPARISON: AP view of the chest from 05/06/2019 EXAM PARAMETERS: NUMBER OF VIEWS: One view. TECHNIQUE: An AP view of the chest was obtained. RADIATION DOSE: NA LIMITATIONS: None. FINDINGS: LUNGS AND PLEURA: Stable pleural thickening, dense consolidation in the left retrocardiac space, and patchy consolidation in the left upper lobe. There is no pneumothorax. MEDIASTINUM AND HILAR STRUCTURES: No mediastinal or hilar contour abnormality. HEART AND VASCULAR STRUCTURES: Stable cardiomegaly. BONES: No acute findings. HARDWARE: The endotracheal and enteric tubes are no longer in place. OTHER: No other finding. IMPRESSION: No acute cardiopulmonary process. TECHNICAL DOCUMENTATION: JOB ID: [id number] [employer]- All Rights Reserved Reading location - IP/workstation name: [email or web address]
[2019-05-07] MEDS: FUROSEMIDE INJ/PF 20 MG/2 ML SDV IV SCH ×2 (11:42→21:13)
[2019-05-07] MEDS ORDERED: METHYLPREDNISOLONE INJ 125 MG/2 ML SDV IV ONE ×2 (13:58→17:15)
--- NOTE | 2019-05-07 14:46 | PDOC CRITICAL CARE PROG REPORT ---
General Date:: 05/07/19 ICU Day:: 5 Ventilator Day:: 0 Hospital Day:: 5 Resuscitation Status: Do Not Resuscitate Medical Power of [employer]: -Mark Events in the past 12 to 24 Hours:: 05.07.2019: Patient was extubated late afternoon and transition to high flow nasal cannula. Has been maintained on Diamox. She had slight increase in work of breathing last evening and was placed on BiPAP with improvement. She is more awake and actually conversant. She tolerated a bedside swallow evaluation without coughing. Was done on high flow nasal cannula however over time she required BiPAP. Notably the family, based on the patient's wishes, have declared the patient to not be reintubated and DNR. 05.06.2019: Patient has been weaning successfully and was placed on CPAP only today on ventilator. Secretions much improved. Bronchoscopy was done yesterday which alleviated some mucus obstruction especially in the ET tube. She has been more awake this morning and actually follow commands when asked to move her toes. She is tracking this morning as well. She is extremely agitated off her medications and she was given fentanyl and and started on Precedex. 05.05.2019: Patient continues to have improvement overall. She has been weaned off all vasopressor support. She is on fentanyl sedation and has been given intermittent Ativan. No seizures noted, no hemodynamic instability noted despite SVT and tachycardia 24 hours ago. Nurses have noted increased secretions which are somewhat bloody from the ET tube while she was on PSV yesterday. Required conventional mechanical ventilation support overnight. Review of systems relevant to events:: 05.07.2019: Chest x-ray shows no worsening off positive pressure. There is only a slight effusion. She endorses that she has malaise but has no distinct pain. She does have chronic pain especially in her knees but is not endorsing these. She has been on Neurontin in the past but the recalls that she had some type of reaction. 05.06.2019: Chest x-ray shows moderate improvement but left upper lobe is still positive for consolidation. She has had no hemodynamic instability. She has required intermittent fentanyl for pain and agitation. Was given Haldol. Transient increase in heart rate to 190 which responded to fentanyl earlier. 05.05.2019: Patient underwent bronchoscopy today because of secretions which showed inflammation of the left upper lobe with mild mucus and significant ET tube obstruction from biofilm and mucus. Areas were lavaged. She has been placed on pressure support after her sedation wore off. There is been no hypotension. She had been on a bicarbonate drip because of persistent acidosis and this has been discontinued secondary to alkalosis. She is also been diuresing with Lasix. Reason for ICU Addmission:: Intubated for CAP, septic shock. - Medications: Vasopressors:: None Sedation:: Precedex Physical Exam Vital Signs: Temp Pulse Resp BP Pulse Ox 99.0 F 83 30 H 166/77 H 98 05/07/19 10:00 05/07/19 13:42 05/07/19 13:42 05/07/19 12:00 05/07/19 13:42 Intake & Output 05/06/19 05/07/19 05/08/19 06:59 06:59 06:59 Intake Total 722 493 141 Output Total 3455 1725 650 Balance -2733 -1232 -509 Weight 82.9 kg 81.8 kg Weight/Height Weight 81.8 kg Height 5 ft 6 in General appearance: PRESENT: mild distress, obese Exam: Older appearing 63-year-old female in mild respiratory distress on high flow. She is conversant awake but not completely alert. She is aware and oriented to person and place Head exam: PRESENT: atraumatic, normocephalic Eye exam: PRESENT: conjunctival injection, conjunctiva pink, EOMI, PERRLA. ABSENT: nystagmus, scleral icterus Mouth exam: PRESENT: moist, neck supple Neck exam: ABSENT: carotid bruit, JVD, lymphadenopathy, thyromegaly Respiratory exam: PRESENT: crackles - Left side, rhonchi - Left lung, tachypnea. ABSENT: accessory muscle use, unlabored, wheezes Cardiovascular exam: PRESENT: RRR. ABSENT: diastolic murmur, rubs, systolic murmur Pulses: PRESENT: +1 pedal pulses bilateral GI/Abdominal exam: PRESENT: normal bowel sounds, soft. ABSENT: ascites, distended, guarding, mass, organolmegaly, rebound, tenderness Rectal exam: PRESENT: deferred Gentrourinary exam: PRESENT: indwelling catheter Extremities exam: ABSENT: pedal edema, tenderness Musculoskeletal exam: PRESENT: deformity, dislocation, other - knees are non- swollen, no erythema, no deformity, non-tender Neurological exam: PRESENT: awake, oriented to person, oriented to place, CN II- XII grossly intact. ABSENT: motor sensory deficit Psychiatric exam: PRESENT: agitated Focused psych exam: PRESENT: restlessness. ABSENT: pressured speech, psychomotor agitation Skin exam: PRESENT: dry, intact, warm. ABSENT: cyanosis, rash Tubes/Lines: PRESENT: Central Line, Arterial Catheter, Other - Gutierrez Laboratory/Radiographs Laboratory Results: 05/07/19 05:44 05/07/19 05:44 05/06/19 05/07/19 05/07/19 15:01 02:15 05:44 WBC RBC Hgb Hct MCV MCH MCHC RDW Plt Count Seg Neutrophils % Carbonic Acid 1.31 HCO3/H2CO3 Ratio 18:1 ABG pH 7.37 ABG pCO2 43.5 ABG pO2 73.7 L ABG HCO3 24.4 H ABG O2 Saturation 94.4 ABG Base Excess -1.0 FiO2 30% Sodium 143.1 Potassium 2.8 L* 3.2 L Chloride 107 Carbon Dioxide 31 H Anion Gap 5 BUN 22 H Creatinine 0.69 Est GFR ( Amer) > 60 Glucose 100 Calcium 8.0 L Phosphorus Magnesium 05/07/19 05/07/19 05:44 05:44 WBC 12.1 H RBC 3.47 L Hgb 10.5 L Hct 32.6 L MCV 94 MCH 30.3 MCHC 32.3 RDW 14.6 H Plt Count 148 L Seg Neutrophils % Not Reportable Carbonic Acid HCO3/H2CO3 Ratio ABG pH ABG pCO2 ABG pO2 ABG HCO3 ABG O2 Saturation ABG Base Excess FiO2 Sodium 146.0 H Potassium 3.0 L* Chloride 111 H Carbon Dioxide 28 Anion Gap 7 BUN 25 H Creatinine 0.61 Est GFR ( Amer) > 60 Glucose 82 Calcium 8.1 L Phosphorus 4.3 Magnesium 2.1 05/02/19 10:51 Blood Blood Culture - Final NO GROWTH IN 5 DAYS 05/02/19 10:40 Blood Blood Culture - Final NO GROWTH IN 5 DAYS 05/05/19 09:21 Bronchial Washings Fungal Smear - Final 05/05/19 09:21 Bronchial Washings Fungal Smear - Final 05/05/19 09:21 Bronchial Washings Gram Stain - Final 05/05/19 09:21 Bronchial Washings Bronchial Washings Culture - Final Pseudomonas Aeruginosa Normal Nichole Absent 05/05/19 09:21 Bronchial Washings AFB Smear Concentration - Final 05/05/19 09:21 Bronchial Washings Acid Fast Bacilli Smear - Final 05/02/19 10:38 Troponin I < 0.012 Impressions: KUB X-Ray 05/02/19 13:24 IMPRESSION: Nasogastric tube tip in the stomach, side port at the GE junction. Mild persistent gaseous distention of the stomach. Chest X-Ray 05/07/19 06:00 IMPRESSION: No acute cardiopulmonary process. All labs, radiographs, diagnostic studies and EKGs were personally reviewed: Yes In addition, reports of radiographic and diagnostic studies were read: Yes Assessment and Plan - Diagnosis (1) Septic shock Is this a current diagnosis for this admission?: Yes Plan: 05.06.2019: Resolved 05.05.2019: Improved. Off vasopressors. Start diuresis 05.04.2019: Dr. Dias:Septic shock due to pseudomonas, not pneumococcal. Still on levophed. Not resolved. (2) Pneumonia due to Pseudomonas aeruginosa Is this a current diagnosis for this admission?: Yes (3) Acute respiratory failure with hypoxia Is this a current diagnosis for this admission?: Yes (4) Acute kidney injury Is this a current diagnosis for this admission?: Yes (5) Metabolic acidosis Is this a current diagnosis for this admission?: Yes (6) Metabolic alkalosis Is this a current diagnosis for this admission?: Yes (7) SVT (supraventricular tachycardia) Is this a current diagnosis for this admission?: Yes (8) Acute exacerbation of emphysema Is this a current diagnosis for this admission?: Yes (9) Hypokalemia due to excessive renal loss of potassium Is this a current diagnosis for this admission?: Yes (10) Chronic use of steroids Is this a current diagnosis for this admission?: Yes (11) Adrenal cortex insufficiency Is this a current diagnosis for this admission?: Yes Plan: From chronic steroid use. Have transitioned to solu-medrol for lung inflammation (12) Dependence on continuous supplemental oxygen Is this a current diagnosis for this admission?: Yes (13) Emphysema of lung Qualifiers: Emphysema type: unspecified Qualified Code(s): J43.9 - Emphysema, unspecified Is this a current diagnosis for this admission?: Yes Plan Summary: 05.07.2019: Patient has persistent need for noninvasive ventilation. We were able to allow her to take oral nutrition with high flow. I am concerned that she may have an inflammatory response as well given her history of lung disease. Added a higher dose of Solu-Medrol and have discontinued Solu-Cortef. I am much concerned that she may worsen however the family and she have declined reintubation. Will additionally add diuresis with Lasix today to see if we can improve her overall situation. The arterial catheter has been ordered to be removed. No significant findings on BAL cultures except for Pseudomonas. Is on meropenem so I do not suspect that there is resistance however we would need to be concerned about this. Current guidelines given her hemodynamic stability do not advocate for dual coverage as well. To need to follow and monitor her course accordingly. Has required Precedex because of agitation during the liberation from ventilator process. We will continue to wean this as well as watch for pain control. She refused her oral antidepressant medications but will attempt to readdress this. Today is day 5 of antibiotics. 05.06.2019: Patient went through liberation protocol successfully and after multiple evaluations was successfully liberated from the ventilator. She was immediately placed on high flow which has been weaning over time. She has significant need for antianxiety agents and pain meds for which she appears to be chronically on. I have maintained her on Precedex to allow for her to be more awake and able to swallow her medications. She has significant emphysema and is on 5 L of oxygen. I am impressed with her overall recovery and this is a testament to the initial care and evaluation by the admitting critical care team under the management of Dr. Shanks. We will continue to wean high flow oxygenation. We will need to be vigilant to watch for further SVTs. Continue antibiotics for at least 7 to 8 days. Today is day 4 Will attempt to remove central venous catheter and Gutierrez when she is more awake. Physical therapy and Occupational Therapy have been ordered. Follow-up on BAL. 05.05.2019: From a respiratory standpoint patient has had increased secretions while on pressure support. She underwent bronchoscopy today which was positive for significant biofilm and entrained secretions in her endotracheal tube. This was cleaned and a BAL was done of the left upper lobe which showed mild to moderate inflammation. Start slow push pressure support wean with higher level of PEEP to assure prevention of atelectasis. Chest x-ray shows slight improvement in left upper lobe infiltrate however this is on positive pressure. BAL sent and will follow. From an infectious disease standpoint, patient's respiratory culture shows pansensitive Pseudomonas. This most likely represent a community-acquired which is seen in approximately 5% of the population. She is also been around significant illness with her mother who had a GI illness. Continue meropenem for a total of 7 days. Follow-up on BAL. From a cardiac standpoint her SVT has resolved and this most likely represents an acute responsive reactive tachycardia related to her sepsis. It is quiescent at this point and we will continue to monitor her while in the ICU. From an endocrine standpoint we will begin to wean steroids in the next 24 hours. Patient did present with acute renal failure as evidenced by the improvement and a level greater than 0.3 consistent with KDIGO standards/guidelines. This has improved. We will start diuresis but change to Diamox. The patient has a metabolic alkalosis and a respiratory alkalosis as well. We will start Diamox to help diurese and hold Lasix. Had been on a bicarbonate drip because of persistent acidosis and have discontinued this as well. Neurological standpoint patient is opening eyes however has been given intermittent Ativan and has been on fentanyl. I have discontinued all of these and will watch for neurological improvement. There are no focal findings and she is moving extremities to stimulus. Overall plans for today are continued ventilator wean at higher PEEP and reduction in sedation. Continue antibiotics for total of 7 days. Diuresis with Diamox and follow labs because of her hypokalemia. Critical Time Critical Time (minutes): 45 - Multiple evaluations including swallowing Level of Care: ICU Anticipated discharge: Acute Rehab Within: within 48 hours -: 1. The care of a critical patient is a dynamic process. This note is a promotional representative synopsis but static in nature. The timeframe for treatments given in order is not necessarily the actual time these treatments may have been done. 2. This patient requires critical care secondary to ongoing requirements for therapy not offered or safe outside the critical care environment. Transfer to a lower level of care will result in altered life or limb morbidity and mortality. 3. Multidisciplinary rounds completed. 4. ABCDE bundle addressed.
[2019-05-07 16:49] LABS: ANION GAP 6 (5-19); BLOOD UREA NITROGEN 24 mg/dL (7-20); CALCIUM 8.3 mg/dL (8.4-10.2); CARBON DIOXIDE 27 mmol/L (22-30); CHLORIDE 112 mmol/L (98-107); GLUCOSE 78 mg/dL (75-110); POTASSIUM 3.3 mmol/L (3.6-5.0)
[2019-05-07] MEDS ORDERED: FENTANYL CITRATE INJ/PF 100 MCG/2 ML AMPUL IV ONE ×2 (18:00→20:00)
[2019-05-07] MEDS ORDERED: GLUCAGON,HUMAN RECOMB 1 MG INJ SUBCUT PRN (18:27)
[2019-05-07] MEDS ORDERED: DEXTROSE 40% GEL 15 GM TUBE PO PRN ×2 (18:27)
[2019-05-07] MEDS ORDERED: DEXTROSE 50%-WATER 25 GM/50 ML DISP.SYRIN IV PRN ×2 (18:27)
[2019-05-07 18:43] LABS: HEMATOCRIT 35.5 % (36.0-47.0); HEMOGLOBIN 11.9 g/dL (12.0-15.5); MEAN CORPUSCULAR HGB CONC 33.4 g/dL (32.0-36.0); MEAN CORPUSCULAR VOLUME 93 fl (80-97); PLATELET COUNT 197 10^3/uL (150-450); RED BLOOD COUNT 3.84 10^6/uL (3.72-5.28); RED CELL DISTRIBUTION WIDTH 14.4 % (11.5-14.0); WHITE BLOOD COUNT 12.9 10^3/uL (4.0-10.5)
--- NOTE | 2019-05-07 19:03 | RADIOLOGY REPORT (SQ) ---
EXAM DESCRIPTION: CT ABD/PELVIS WITH IV ONLY COMPLETED DATE/TIME: 05/07/2019 6:48 pm REASON FOR STUDY: abdominal pain COMPARISON: None. TECHNIQUE: CT scan of the abdomen and pelvis performed using helical scanning technique with dynamic intravenous contrast injection. No oral contrast. Images reviewed with lung, soft tissue, and bone windows. Reconstructed coronal and sagittal MPR images reviewed. Delayed images for evaluation of the urinary system also acquired. All images stored on PACS. All CT scanners at this facility use dose modulation, iterative reconstruction, and/or weight based d osing when appropriate to reduce radiation dose to as low as reasonably achievable (ALARA). [facility]: Dose Right [facility]: CareDose [facility]: Dose Right [facility]: Teradose 4D [facility]: [employer] CONTRAST TYPE AND DOSE: contrast/concentration: Isovue 350.00 mg/ml; Total Contrast Delivered: 87.0 ml; Total Saline Delivered: 71.0 ml RENAL FUNCTION: BUN 24 creatinine 0.62 RADIATION DOSE: CT Rad equipment meets quality standard of care and radiation dose reduction techniq ues were employed. CTDIvol: 15.8 - 19.1 mGy. DLP: 1848 mGy-cm.. LIMITATIONS: None. FINDINGS: LOWER CHEST: Small right pleural effusion. Slightly larger left pleural effusion. Subseg mental atelectasis in the left lower lobe. LIVER: Normal size. No masses. No dilated ducts. SPLEEN: Normal size. No focal lesions. PANCREAS: No masses. No significant calcifications. No adjacent inflammation or peripancreatic fluid collections. Pancreatic duct not dilated. GALLBLADDER: Surgically absent. ADRENAL GLANDS: No significant masses or asymmetry. RIGHT KIDNEY AND URETER: No solid masses. No significant calcifications. No hydronephrosis or hyd roureter. LEFT KIDNEY AND URETER: No solid masses. No significant calcifications. No hydronephrosis or hydr oureter. AORTA AND VESSELS: No aneurysm. No dissection. Renal arteries, SMA, celiac without stenosis. RETROPERITONEUM: No retroperitoneal adenopathy, hemorrhage or masses. BOWEL AND PERITONEAL CAVITY: No masses or inflammatory changes. No free fluid or peritoneal masses. APPENDIX: Not identified. PELVIS: A catheter is in the urinary bladder. There is small amount of free fluid in the pelvis. No pelvic mass. ABDOMINAL WALL: There appears to be mild subcutaneous edema. BONES: No significant or acute findings. OTHER: No other significant finding. IMPRESSION: Small pleural effusions as described. Mild subsegmental atelectasis in the left lower l obe. There is some free fluid in the pelvis. There is mild subcutaneous edema. TECHNICAL DOCUMENTATION: JOB ID: [id number] Quality ID # [id number]: Final reports with documentation of one or more dose reduction techniques (e.g., Au tomated exposure control, adjustment of the mA and/or kV according to patient size, use of iterative reconstruction technique) 2010 [email or web address]- All Rights Reserved Reading location - IP/workstation name: [email or web address]
[2019-05-07 19:26] LABS: ABSOLUTE LYMPHOCYTES# (MANUAL) 0.3 10^3/uL (0.5-4.7); ABSOLUTE MONOCYTES # (MANUAL) 0.3 10^3/uL (0.1-1.4); ANISOCYTOSIS SLIGHT; BASOPHILS % (MANUAL) 0 % (0-2); EOSINOPHILS % (MANUAL) 0 % (0-6); LYMPHOCYTES % (MANUAL) 2 % (13-45); MONOCYTES % (MANUAL) 2 % (3-13); SEGMENTED NEUTROPHILS % (MAN) 96 % (42-78); TOTAL CELLS COUNTED 100
[2019-05-07 19:27] LABS: PLATELET COMMENT ADEQUATE
[2019-05-07 19:33] LABS: ALBUMIN 2.5 g/dL (3.5-5.0); ALKALINE PHOSPHATASE 126 U/L (38-126); AMYLASE 195 U/L (30-110); ASPARTATE AMINO TRANSFERASE 22 U/L (14-36); BILIRUBIN,DIRECT 0.4 mg/dL (0.0-0.4); PHOSPHORUS 3.9 mg/dL (2.5-4.5); TOTAL PROTEIN 4.8 g/dL (6.3-8.2)
[2019-05-07] MEDS ORDERED: FENTANYL CITRATE INJ/PF 100 MCG/2 ML AMPUL ONE (19:42)
[2019-05-07] MEDS: METHYLPREDNISOLONE INJ 40 MG/1 ML SDV IV SCH (21:12)
[2019-05-07] MEDS: TRAZODONE HCL 50 MG TABLET PO SCH (21:12)
[2019-05-07] MEDS: SENNOSIDES/DOCUSATE 8.6-50 MG 1 EACH TABLET PO SCH (21:13)
[2019-05-07] MEDS: FENTANYL CITRATE INJ/PF 100 MCG/2 ML AMPUL IV PRN (22:19)
[2019-05-08] MEDS: FENTANYL CITRATE INJ/PF 100 MCG/2 ML AMPUL IV PRN ×5 (00:37→22:42)
[2019-05-08 01:32] LABS: HEMATOCRIT 34.5 % (36.0-47.0); HEMOGLOBIN 11.3 g/dL (12.0-15.5); MEAN CORPUSCULAR HEMOGLOBIN 30.3 pg (27.0-33.4); MEAN CORPUSCULAR HGB CONC 32.9 g/dL (32.0-36.0); MEAN CORPUSCULAR VOLUME 92 fl (80-97); PLATELET COUNT 217 10^3/uL (150-450); RED BLOOD COUNT 3.75 10^6/uL (3.72-5.28); RED CELL DISTRIBUTION WIDTH 14.2 % (11.5-14.0); WHITE BLOOD COUNT 11.9 10^3/uL (4.0-10.5)
[2019-05-08 01:51] LABS: AMYLASE 209 U/L (30-110); ANION GAP 7 (5-19); BLOOD UREA NITROGEN 25 mg/dL (7-20); CALCIUM 8.3 mg/dL (8.4-10.2); CARBON DIOXIDE 28 mmol/L (22-30); CHLORIDE 109 mmol/L (98-107); GLUCOSE 109 mg/dL (75-110); POTASSIUM 3.4 mmol/L (3.6-5.0)
[2019-05-08 01:53] LABS: ABSOLUTE MONOCYTES # (MANUAL) 0.1 10^3/uL (0.1-1.4); BASOPHILS % (MANUAL) 0 % (0-2); EOSINOPHILS % (MANUAL) 0 % (0-6); LYMPHOCYTES % (MANUAL) 0 % (13-45); MONOCYTES % (MANUAL) 1 % (3-13); SEGMENTED NEUTROPHILS % (MAN) 99 % (42-78); TOTAL CELLS COUNTED 100
[2019-05-08 01:55] LABS: PLATELET COMMENT ADEQUATE; TOXIC GRANULATION SLIGHT
[2019-05-08] MEDS ORDERED: POTASSI CL 20 MEQ/50 ML RIDER 20 MEQ/50 ML RTUPB IV ONE (02:15)
[2019-05-08] MEDS: IPRATROPIUM/ALBUTEROL 0.5-2.5 MG/3 ML AMPUL NEB SCH ×2 (02:18→08:17)
[2019-05-08] MEDS: POTASSIUM CHLORIDE 20 MEQ/50 ML RTU IV SCH ×2 (02:30→04:22)
[2019-05-08] MEDS: HALOPERIDOL LACTATE INJ 5 MG/1 ML VIAL IV PRN ×2 (03:43→15:44)
[2019-05-08] MEDS: MEROPENEM 1 GM in NORMAL SALINE 50 ML IV SCH ×2 (05:02→17:42)
[2019-05-08] MEDS ORDERED: POTASSI CL 20 MEQ/50 ML RIDER 20 MEQ/50 ML RTUPB IV SCH (06:00)
--- NOTE | 2019-05-08 08:44 | RADIOLOGY REPORT (SQ) ---
EXAM DESCRIPTION: CHEST SINGLE VIEW COMPLETED DATE/TIME: 05/08/2019 7:02 am REASON FOR STUDY: improvement in effusion? COMPARISON: 05/07/2019 NUMBER OF VIEWS: One view. TECHNIQUE: Single frontal radiographic image of the chest acquired. LIMITATIONS: None. FINDINGS: LUNGS AND PLEURA: Stable consolidation left upper lobe. Stable small left pleural effusio n. MEDIASTINUM AND HEART: Stable heart size and mediastinal structures. SUPPORT DEVICES: Appropriate location without change. BONY STRUCTURES: No acute findings. HARDWARE: None. OTHER: No other significant finding. IMPRESSION: STABLE APPEARANCE OF THE CHEST. SUPPORT DEVICES UNCHANGED. Reading location - IP/workstation name: [email or web address]
[2019-05-08] MEDS: BUSPIRONE HCL 10 MG TABLET PO SCH (11:20)
[2019-05-08] MEDS: PAROXETINE HCL 20 MG TABLET PO SCH (11:20)
[2019-05-08] MEDS: FONDAPARINUX SODIUM INJ 2.5 MG/0.5 ML DISP.SYRIN SUBCUT SCH (11:21)
[2019-05-08] MEDS: METHYLPREDNISOLONE INJ 40 MG/1 ML SDV IV SCH ×2 (11:21→22:42)
[2019-05-08] MEDS ORDERED: ALBUTEROL SULFATE 0.083% NEB 2.5 MG/3 ML AMPUL NEB PRN (13:05)
[2019-05-08] MEDS ORDERED: PHARMACY COMMUNICATION ORDER MC NR (13:15)
[2019-05-08] MEDS ORDERED: DEXTROSE 40% GEL 15 GM TUBE NG PRN ×2 (14:00)
--- NOTE | 2019-05-08 14:16 | RADIOLOGY REPORT (SQ) ---
EXAM DESCRIPTION: KUB/ABDOMEN (SINGLE VIEW) COMPLETED DATE/TIME: 05/08/2019 1:11 pm REASON FOR STUDY: NGT for post-pyloric placement COMPARISON: 05/02/2019 NUMBER OF VIEWS: One view. TECHNIQUE: Supine radiographic image of the abdomen acquired. LIMITATIONS: None. FINDINGS: BOWEL GAS PATTERN: Normal bowel gas pattern. No dilated loops. CALCIFICATIONS: No suspicious calcifications. SOFT TISSUES: No gross mass or suggestion of organomegaly. HARDWARE: A weighted feeding tube has its tip in the 2nd portion of the duodenum. BONES: No acute fracture. No worrisome bone lesions. OTHER: There is considerable retrocardiac opacification on the left in the lung base. IMPRESSION: A feeding tube has its tip in the 2nd portion the duodenum. There is airspace disease i n the left base, atelectasis versus consolidation. There appears to be a left pleural effusion. TECHNICAL DOCUMENTATION: JOB ID: [id number] [employer]- All Rights Reserved Reading location - IP/workstation name: [email or web address]
[2019-05-08] MEDS: ALBUTEROL SULFATE 0.083% NEB 2.5 MG/3 ML AMPUL NEB SCH ×2 (16:08→20:52)
--- NOTE | 2019-05-08 20:10 | PDOC CRITICAL CARE PROG REPORT ---
General Date:: 05/08/19 ICU Day:: 6 Hospital Day:: 6 Resuscitation Status: Do Not Resuscitate Medical Power of Club Lounge Attendant: Andreea Events in the past 12 to 24 Hours:: 05.08.2019: Patient had CT scan. Minimal significant findings. Specifically the pancreas was normal. Notably amylase/Lipase elevated. He has not been hemodynamically unstable. Abdominal discomfort has improved. 05.07.2019: Patient was extubated late afternoon and transition to high flow nasal cannula. Has been maintained on Diamox. She had slight increase in work of breathing last evening and was placed on BiPAP with improvement. She is more awake and actually conversant. She tolerated a bedside swallow evaluation without coughing. Was done on high flow nasal cannula however over time she required BiPAP. Notably the family, based on the patient's wishes, have declared the patient to not be reintubated and DNR. 05.06.2019: Patient has been weaning successfully and was placed on CPAP only today on ventilator. Secretions much improved. Bronchoscopy was done yesterday which alleviated some mucus obstruction especially in the ET tube. She has been more awake this morning and actually follow commands when asked to move her toes. She is tracking this morning as well. She is extremely agitated off her medications and she was given fentanyl and and started on Precedex. 05.05.2019: Patient continues to have improvement overall. She has been weaned off all vasopressor support. She is on fentanyl sedation and has been given intermittent Ativan. No seizures noted, no hemodynamic instability noted despite SVT and tachycardia 24 hours ago. Nurses have noted increased secretions which are somewhat bloody from the ET tube while she was on PSV yesterday. Required conventional mechanical ventilation support overnight. Review of systems relevant to events:: 05.08.2019: Day 5 of antibiotics. Chest x-ray has improved. She states that the abdominal discomfort has improved. Amylase and lipase are slightly more elevated today. No diarrhea White Blood cell count slightly elevated today but she had steroids increased to improve her lung function yesterday. Patient's respiratory status has improved and she is now been weaned to high flow nasal cannula and no longer dependent on BiPAP. She endorses that her breathing has remarkably improved. 05.07.2019: Chest x-ray shows no worsening off positive pressure. There is only a slight effusion. She endorses that she has malaise but has no distinct pain. She does have chronic pain especially in her knees but is not endorsing these. She has been on Neurontin in the past but the recalls that she had some type of reaction. 05.06.2019: Chest x-ray shows moderate improvement but left upper lobe is still positive for consolidation. She has had no hemodynamic instability. She has required intermittent fentanyl for pain and agitation. Was given Haldol. Transient increase in heart rate to 190 which responded to fentanyl earlier. 05.05.2019: Patient underwent bronchoscopy today because of secretions which showed inflammation of the left upper lobe with mild mucus and significant ET tube obstruction from biofilm and mucus. Areas were lavaged. She has been placed on pressure support after her sedation wore off. There is been no hypotension. She had been on a bicarbonate drip because of persistent acidosis and this has been discontinued secondary to alkalosis. She is also been diuresing with Lasix. Reason for ICU Addmission:: Intubated for CAP, septic shock. - Medications: Medications reviewed and adjusted accordingly: Yes Vasopressors:: None Sedation:: Precedex now off Physical Exam Vital Signs: Temp Pulse Resp BP Pulse Ox 99.7 F 85 25 H 142/72 H 98 05/08/19 08:00 05/08/19 08:19 05/08/19 08:19 05/08/19 08:00 05/08/19 08:19 Intake & Output 05/07/19 05/08/19 05/09/19 06:59 06:59 06:59 Intake Total 543 489 Output Total 1725 4200 200 Balance -1182 -3711 -200 Weight 81.8 kg 76.5 kg Weight/Height Weight 76.5 kg Height 5 ft 6 in General appearance: PRESENT: no acute distress, cooperative, obese, well- developed, well-nourished Head exam: PRESENT: atraumatic, normocephalic Eye exam: PRESENT: conjunctiva pink, EOMI, PERRLA. ABSENT: conjunctival injection, nystagmus, scleral icterus Mouth exam: PRESENT: moist, neck supple Neck exam: PRESENT: other - RIJ CVC clean dry and intact. ABSENT: carotid bruit, JVD, lymphadenopathy, thyromegaly Respiratory exam: PRESENT: rhonchi - YONI, tachypnea, unlabored. ABSENT: accessory muscle use, rales, wheezes Cardiovascular exam: PRESENT: RRR, +S1, +S2. ABSENT: diastolic murmur, rubs, systolic murmur Pulses: PRESENT: +1 pedal pulses bilateral Vascular exam: PRESENT: normal capillary refill. ABSENT: pallor GI/Abdominal exam: PRESENT: diminished bowel sounds, hernia, hypoactive bowel sounds, soft, tenderness - mid-epigastric. ABSENT: ascites, guarding, organolmegaly, rebound Rectal exam: PRESENT: deferred Gentrourinary exam: PRESENT: indwelling catheter Extremities exam: ABSENT: pedal edema Musculoskeletal exam: ABSENT: deformity, dislocation Neurological exam: PRESENT: awake, oriented to person, oriented to place, oriented to situation, CN II-XII grossly intact. ABSENT: motor sensory deficit Psychiatric exam: PRESENT: appropriate affect, normal mood. ABSENT: homicidal ideation, suicidal ideation Skin exam: PRESENT: dry, intact, warm. ABSENT: cyanosis, jaundice, rash Tubes/Lines: PRESENT: Central Line, Other - Gutierrez. ABSENT: Arterial Catheter Laboratory/Radiographs Laboratory Results: 05/08/19 01:20 05/07/19 05/07/19 05/07/19 16:01 18:02 18:02 WBC 12.9 H RBC 3.84 Hgb 11.9 L Hct 35.5 L MCV 93 MCH 31.0 MCHC 33.4 RDW 14.4 H Plt Count 197 Seg Neutrophils % Not Reportable Sodium 145.0 Potassium 3.3 L Chloride 112 H Carbon Dioxide 27 Anion Gap 6 BUN 24 H Creatinine 0.62 Est GFR ( Amer) > 60 Glucose 78 Lactic Acid Calcium 8.3 L Phosphorus 3.9 Magnesium 2.1 Total Bilirubin 1.0 AST 22 Alkaline Phosphatase 126 Total Protein 4.8 L Albumin 2.5 L Amylase 195 H Lipase 772.6 H 05/08/19 05/08/19 05/08/19 01:20 01:20 01:20 WBC 11.9 H RBC 3.75 Hgb 11.3 L Hct 34.5 L MCV 92 MCH 30.3 MCHC 32.9 RDW 14.2 H Plt Count 217 Seg Neutrophils % Not Reportable Sodium 144.4 Potassium 3.4 L Chloride 109 H Carbon Dioxide 28 Anion Gap 7 BUN 25 H Creatinine 0.65 Est GFR ( Amer) > 60 Glucose 109 Lactic Acid 0.8 Calcium 8.3 L Phosphorus Magnesium Total Bilirubin AST Alkaline Phosphatase Total Protein Albumin Amylase 209 H Lipase 921.6 H 05/02/19 15:43 Blood Blood Culture - Final NO GROWTH IN 5 DAYS 05/02/19 15:40 Blood Blood Culture - Final NO GROWTH IN 5 DAYS 05/02/19 10:51 Blood Blood Culture - Final NO GROWTH IN 5 DAYS 05/02/19 10:40 Blood Blood Culture - Final NO GROWTH IN 5 DAYS 05/05/19 09:21 Bronchial Washings Fungal Smear - Final 05/05/19 09:21 Bronchial Washings Fungal Smear - Final 05/05/19 09:21 Bronchial Washings Gram Stain - Final 05/05/19 09:21 Bronchial Washings Bronchial Washings Culture - Final Pseudomonas Aeruginosa Normal Nichole Absent 05/02/19 10:38 Troponin I < 0.012 Impressions: KUB X-Ray 05/02/19 13:24 IMPRESSION: Nasogastric tube tip in the stomach, side port at the GE junction. Mild persistent gaseous distention of the stomach. Abdomen/Pelvis CT 05/07/19 00:00 IMPRESSION: Small pleural effusions as described. Mild subsegmental atelectasis in the left lower lobe. There is some free fluid in the pelvis. There is mild subcutaneous edema. Chest X-Ray 05/08/19 00:00 IMPRESSION: STABLE APPEARANCE OF THE CHEST. SUPPORT DEVICES UNCHANGED. All labs, radiographs, diagnostic studies and EKGs were personally reviewed: Yes In addition, reports of radiographic and diagnostic studies were read: Yes Assessment and Plan - Diagnosis (1) Septic shock Is this a current diagnosis for this admission?: Yes Plan: 05.06.2019: Resolved 05.05.2019: Improved. Off vasopressors. Start diuresis 05.04.2019: Dr. Dias:Septic shock due to pseudomonas, not pneumococcal. Still on levophed. Not resolved. (2) Pneumonia due to Pseudomonas aeruginosa Is this a current diagnosis for this admission?: Yes (3) Acute respiratory failure with hypoxia Is this a current diagnosis for this admission?: Yes (4) Acute kidney injury Is this a current diagnosis for this admission?: Yes (5) Metabolic acidosis Is this a current diagnosis for this admission?: Yes (6) Metabolic alkalosis Is this a current diagnosis for this admission?: Yes (7) SVT (supraventricular tachycardia) Is this a current diagnosis for this admission?: Yes Plan: 05.05.2019: Resolved. Quiescent 05.04.2019: Dr. Dias:One episode to 190 associated with brief hypotension to 68/43. Resolved with adenosine 6mg. Likely due to stress hormones such as epinephrine and to an extent norepinephrine. On esmolol drip to blunt catacholamines. (8) Acute exacerbation of emphysema Is this a current diagnosis for this admission?: Yes (9) Hypokalemia due to excessive renal loss of potassium Is this a current diagnosis for this admission?: Yes (10) Chronic use of steroids Is this a current diagnosis for this admission?: Yes (11) Adrenal cortex insufficiency Is this a current diagnosis for this admission?: Yes Plan: From chronic steroid use. Have transitioned to solu-medrol for lung inflammation (12) Dependence on continuous supplemental oxygen Is this a current diagnosis for this admission?: Yes (13) Emphysema of lung Qualifiers: Emphysema type: unspecified Qualified Code(s): J43.9 - Emphysema, unspecified Is this a current diagnosis for this admission?: Yes (14) Acute pancreatitis without necrosis or infection, unspecified Qualifiers: Pancreatitis type: idiopathic Qualified Code(s): K85.00 - Idiopathic acute pancreatitis without necrosis or infection Is this a current diagnosis for this admission?: Yes Plan: Chemical pancreatitis. CT negative. (15) Thrombocytopenia Is this a current diagnosis for this admission?: Yes Plan: From sepsis. Improved Plan Summary: 05.08.2019: In the last 24 hours patient has had significant improvement in her overall respiratory status. Her chest x-ray appears slightly improved despite being off positive pressure ventilation. She appears to have a chemical pancreatitis only with a negative CT. Clinically she has tenderness but it has improved significantly. 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 This is common in COPD patients and I have discontinued her parasympathetic medications (Atrovent). We also placed a postpyloric feeding tube at bedside to start enteral nutrition. She is now been able to swallow well and this will also help with the pancreatitis. Hopefully will be able to give her her medications as well. We have maintained her on fondaparinux until her HIT panel returns. Platelets have improved. We will continue fondaparinux At this point we have begun to institute rehabilitation with physical therapy and Occupational Therapy. Movement will be in her best interest. Is on day 6 of meropenem and will continue this for at least 7 with possibly 10 days. Literature still supports a 7-day course however we will evaluate her lung function to determine if she needs a longer course especially in light of t he need for steroids. I am impressed that she continues to improve but she is still ill enough to re quire ICU care. We will continue to monitor her abdominal function, assure that she has good colonic function, tolerating postpyloric tube feeds and has no further worsening of her pancreatitis. We will continue her on steroids which appears to have been helpful in improving her respiratory status. We will start to wean noninvasive ventilation. 05.07.2019: Patient has persistent need for noninvasive ventilation. We were able to allow her to take oral nutrition with high flow. I am concerned that she may have an inflammatory response as well given her history of lung disease. Added a higher dose of Solu-Medrol and have discontinued Solu-Cortef. I am much concerned that she may worsen however the family and she have declined reintubation. Will additionally add diuresis with Lasix today to see if we can improve her overall situation. The arterial catheter has been ordered to be removed. No significant findings on BAL cultures except for Pseudomonas. Is on meropenem so I do not suspect that there is resistance however we would need to be concerned about this. Current guidelines given her hemodynamic stability do not advocate for dual coverage as well. To need to follow and monitor her course accordingly. Has required Precedex because of agitation during the liberation from ventilator process. We will continue to wean this as well as watch for pain control. She refused her oral antidepressant medications but will attempt to address this. Today is day 5 of antibiotics. 05.06.2019: Patient went through liberation protocol successfully and after multiple evaluations was successfully liberated from the ventilator. She was immediately placed on high flow which has been weaning over time. She has significant need for antianxiety agents and pain meds for which she appears to be chronically on. I have maintained her on Precedex to allow for her to be more awake and able to swallow her medications. She has significant emphysema and is on 5 L of oxygen. I am impressed with her overall recovery and this is a testament to the initial care and evaluation by the admitting critical care team under the management of Dr. Shanks. We will continue to wean high flow oxygenation. We will need to be vigilant to watch for further SVTs. Continue antibiotics for at least 7 to 8 days. Today is day 4 Will attempt to remove central venous catheter and Gutierrez when she is more awake. Physical therapy and Occupational Therapy have been ordered. Follow-up on BAL. 05.05.2019: From a respiratory standpoint patient has had increased secretions while on pressure support. She underwent bronchoscopy today which was positive for significant biofilm and entrained secretions in her endotracheal tube. This was cleaned and a BAL was done of the left upper lobe which showed mild to moderate inflammation. Start slow push pressure support wean with higher level of PEEP to assure prevention of atelectasis. Chest x-ray shows slight improvement in left upper lobe infiltrate however this is on positive pressure. BAL sent and will follow. From an infectious disease standpoint, patient's respiratory culture shows pansensitive Pseudomonas. This most likely represent a community-acquired which is seen in approximately 5% of the population. She is also been around significant illness with her mother who had a GI illness. Continue meropenem for a total of 7 days. Follow-up on BAL. From a cardiac standpoint her SVT has resolved and this most likely represents an acute responsive reactive tachycardia related to her sepsis. It is quiescent at this point and we will continue to monitor her while in the ICU. From an endocrine standpoint we will begin to wean steroids in the next 24 hours. Patient did present with acute renal failure as evidenced by the improvement and a level greater than 0.3 consistent with KDIGO standards/guidelines. This has improved. We will start diuresis but change to Diamox. The patient has a metabolic alkalosis and a respiratory alkalosis as well. We will start Diamox to help diurese and hold Lasix. Had been on a bicarbonate drip because of persistent acidosis and have discontinued this as well. Neurological standpoint patient is opening eyes however has been given intermittent Ativan and has been on fentanyl. I have discontinued all of these and will watch for neurological improvement. There are no focal findings and she is moving extremities to stimulus. Overall plans for today are continued ventilator wean at higher PEEP and reduction in sedation. Continue antibiotics for total of 7 days. Diuresis with Diamox and follow labs because of her hypokalemia. Critical Time Critical Time (minutes): 68 - Placement of post-pyloric feeding tube Level of Care: ICU -: 1. The care of a critical patient is a dynamic process. This note is a support representative synopsis but static in nature. The timeframe for treatments given in order is not necessarily the actual time these treatments may have been done. 2. This patient requires critical care secondary to ongoing requirements for therapy not offered or safe outside the critical care environment. Transfer to a lower level of care will result in altered life or limb morbidity and mortality. 3. Multidisciplinary rounds completed. 4. ABCDE bundle addressed.
--- NOTE | 2019-05-08 20:18 | Operative Report ---
Bedside Procedure - History of Present Illness History of Present Illness: The patient is a 63 year old woman with Pseudomonas pneumonia. She has done well in her critical care course but developed chemical pancreatitis and also has been unable to eat after extubation. She agreed to placement of postpyloric feeding tube for nutrition and also for pancreatitis. Procedure Procedure: Pre-procedure DX: Post extubation dysphasia and pancreatitis Post-procedure DX: Same Proceduralist: DO Lionel [facility] Sedation: None EBL: None Complications: None Findings: Tube in the second portion of the duodenum Consent was obtained at bedside given by and patient. The right nares was chosen a site of access secondary to anatomical preference. A soft bore weighted feeding tube was then placed at 25 cm and auscultation of the stomach was done to assure GI placement. When sounds were audible the wire was then removed and a 30 degree angle was induced 3 cm from the tip. Using modified the Modified Thurlow-Zaloga technique with insufflation of the stomach, the tube was advanced using a corkscrew technique. It required multiple attempts and at one point high-pitched sounds were heard in the jejunal region. The tube was advanced further and the sounds became more gastric in nature. I was concerned that the tube was reversing direction. X- ray was done which showed that the tube had passed through the pylorus but returned back to the gastric fundus. Gentle manipulation repeat x-ray showed the tip of the tube in the second portion the duodenum. Notably the colon appears slightly distended but not significant. Negative vacuum effect was noted and bile was noted as well. This confirmed placement in addition to the x-ray. Patient tolerated procedure well there were no complications Indication for Procedure: Dysphagia with pancreatitis Date: 05/02/19 Provider: DEANGELO FERNÁNDEZ
[2019-05-08] MEDS: SENNOSIDES/DOCUSATE 8.6-50 MG 1 EACH TABLET PO SCH (22:42)
[2019-05-08] MEDS: TRAZODONE HCL 50 MG TABLET PO SCH (22:42)
[2019-05-09] MEDS: FENTANYL CITRATE INJ/PF 100 MCG/2 ML AMPUL IV PRN ×4 (01:15→10:51)
[2019-05-09] MEDS: MEROPENEM 1 GM in NORMAL SALINE 50 ML IV SCH ×2 (05:02→19:13)
[2019-05-09 05:04] LABS: HEMOGLOBIN 11.3 g/dL (12.0-15.5); MEAN CORPUSCULAR HEMOGLOBIN 30.6 pg (27.0-33.4); MEAN CORPUSCULAR HGB CONC 33.3 g/dL (32.0-36.0); MEAN CORPUSCULAR VOLUME 92 fl (80-97); PLATELET COUNT 272 10^3/uL (150-450); RED BLOOD COUNT 3.69 10^6/uL (3.72-5.28); RED CELL DISTRIBUTION WIDTH 14.1 % (11.5-14.0)
[2019-05-09 05:24] LABS: ALBUMIN 2.3 g/dL (3.5-5.0); ALKALINE PHOSPHATASE 99 U/L (38-126); AMYLASE 197 U/L (30-110); ANION GAP 6 (5-19); ASPARTATE AMINO TRANSFERASE 15 U/L (14-36); BILIRUBIN,DIRECT 0.3 mg/dL (0.0-0.4); BILIRUBIN,TOTAL 0.6 mg/dL (0.2-1.3); BLOOD UREA NITROGEN 23 mg/dL (7-20); CARBON DIOXIDE 30 mmol/L (22-30); CHLORIDE 106 mmol/L (98-107); CHOLESTEROL 111.25 mg/dL (0-200); GLUCOSE 129 mg/dL (75-110); PHOSPHORUS 3.4 mg/dL (2.5-4.5); POTASSIUM 3.5 mmol/L (3.6-5.0); TOTAL PROTEIN 4.4 g/dL (6.3-8.2); TRIGLYCERIDES 157 mg/dL (<150)
[2019-05-09 05:25] LABS: VLDL CHOLESTEROL 31.4 mg/dL (10-31)
[2019-05-09 05:50] LABS: ABSOLUTE LYMPHOCYTES# (MANUAL) 0.3 10^3/uL (0.5-4.7); ABSOLUTE MONOCYTES # (MANUAL) 0.3 10^3/uL (0.1-1.4); BASOPHILS % (MANUAL) 0 % (0-2); EOSINOPHILS % (MANUAL) 0 % (0-6); LYMPHOCYTES % (MANUAL) 2 % (13-45); MONOCYTES % (MANUAL) 2 % (3-13); SEGMENTED NEUTROPHILS % (MAN) 96 % (42-78); TOTAL CELLS COUNTED 100
[2019-05-09 05:51] LABS: ANISOCYTOSIS SLIGHT; OVALOCYTES SLIGHT; POIKILOCYTOSIS SLIGHT; SCHISTOCYTES SLIGHT; TOXIC GRANULATION 1+
[2019-05-09 05:52] LABS: PLATELET COMMENT ADEQUATE
[2019-05-09] MEDS: ALBUTEROL SULFATE 0.083% NEB 2.5 MG/3 ML AMPUL NEB SCH ×4 (07:53→21:00)
--- NOTE | 2019-05-09 08:37 | RADIOLOGY REPORT (SQ) ---
EXAM DESCRIPTION: KUB/ABDOMEN (SINGLE VIEW) COMPLETED DATE/TIME: 05/09/2019 7:14 am REASON FOR STUDY: colonic distension COMPARISON: AP view of the abdomen from 05/08/2019. NUMBER OF VIEWS: One view. TECHNIQUE: Supine radiographic image of the abdomen acquired. LIMITATIONS: None. FINDINGS: BOWEL GAS PATTERN: The ascending and transverse colon are distended with air. There are n o dilated loops of small bowel. CALCIFICATIONS: None. SOFT TISSUES: No abnormality. HARDWARE: The tip of the Dobbhoff tube projects past the gastroesophageal junction and within the dis jayson stomach or proximal duodenum. There are surgical clips in the mid abdomen. BONES: No acute findings. OTHER: No other findings. IMPRESSION: The tip of the Dobbhoff tube projects past the gastroesophageal junction and either with in the distal stomach or proximal duodenum. TECHNICAL DOCUMENTATION: JOB ID: [id number] [employer]- All Rights Reserved Reading location - IP/workstation name: [email or web address]
[2019-05-09] MEDS: FONDAPARINUX SODIUM INJ 2.5 MG/0.5 ML DISP.SYRIN SUBCUT SCH (10:46)
[2019-05-09] MEDS: BUSPIRONE HCL 10 MG TABLET NG SCH (10:47)
[2019-05-09] MEDS: PAROXETINE HCL 20 MG TABLET NG SCH (10:50)
[2019-05-09] MEDS: METHYLPREDNISOLONE INJ 40 MG/1 ML SDV IV SCH ×2 (10:50→21:34)
--- NOTE | 2019-05-09 14:04 | RADIOLOGY REPORT (SQ) ---
EXAM DESCRIPTION: CT ABD/PELVIS WITH IV ORAL COMPLETED DATE/TIME: 05/09/2019 1:26 pm REASON FOR STUDY: Pancreatitis With colonic distension, COMPARISON: 05/07/2019 TECHNIQUE: CT scan of the abdomen and pelvis performed using helical scanning technique with dynamic intravenous contrast injection. Additional oral contrast. Images reviewed with lung, soft tissue, a nd bone windows. Reconstructed coronal and sagittal MPR images reviewed. Delayed images for evaluatio n of the urinary system also acquired. All images stored on PACS. All CT scanners at this facility use dose modulation, iterative reconstruction, and/or weight based d osing when appropriate to reduce radiation dose to as low as reasonably achievable (ALARA). [facility]: Dose Right [facility]: CareDose [facility]: Dose Right [facility]: Teradose 4D [facility]: [employer] CONTRAST TYPE AND DOSE: contrast/concentration: Isovue 350.00 mg/ml; Total Contrast Delivered: 88.0 ml; Total Saline Delivered: 63.0 ml RENAL FUNCTION: GFR > 60. RADIATION DOSE: CT Rad equipment meets quality standard of care and radiation dose reduction techniq ues were employed. CTDIvol: 12.0 - 16.7 mGy. DLP: 1617 mGy-cm.. LIMITATIONS: None. FINDINGS: LOWER CHEST: Moderate left, small right pleural effusions associated atelectasis or consol idation, increased compared to prior examination. LIVER: Normal size. No masses. No dilated ducts. SPLEEN: Normal size. No focal lesions. PANCREAS: No masses. No significant calcifications. Stranding and fluid about the pancreatic head. P ancreatic duct not dilated. GALLBLADDER: Surgically absent. ADRENAL GLANDS: No significant masses or asymmetry. RIGHT KIDNEY AND URETER: No solid masses. No significant calcifications. No hydronephrosis or hyd roureter. LEFT KIDNEY AND URETER: No solid masses. No significant calcifications. No hydronephrosis or hydr oureter. AORTA AND VESSELS: Calcific atherosclerosis. Status post aortobifemoral graft bypass. RETROPERITONEUM: No retroperitoneal adenopathy, hemorrhage or masses. BOWEL AND PERITONEAL CAVITY: Status post rectal resection and anastomosis. Weighted enteric feeding tube with tip and side-port in the descending portion of the duodenum. No masses or inflammatory ch anges. Small volume ascites unchanged from prior. APPENDIX: Not clearly visualized. PELVIS: No mass. No free fluid. Normal bladder. ABDOMINAL WALL: No masses. No hernias. BONES: No significant or acute findings. OTHER: No other significant finding. IMPRESSION: 1. Fat stranding and retroperitoneal fluid about the pancreatic head, in keeping with p ancreatitis, slightly increased compared to prior examination. There is small volume ascites unchang ed from prior. 2. There is gas and stool in the right colon, with a decompressed distal colon. No evidence of obst ruction or severe ileus. Evidence of prior rectal resection. 3. Moderate left, small right pleural effusions and associated atelectasis or consolidation, increase d compared to prior examination. 4. Anasarca. TECHNICAL DOCUMENTATION: JOB ID: [id number] Quality ID # [id number]: Final reports with documentation of one or more dose reduction techniques (e.g., Au tomated exposure control, adjustment of the mA and/or kV according to patient size, use of iterative reconstruction technique) 2010 [employer]- All Rights Reserved Reading location - IP/workstation name: [email or web address]
--- NOTE | 2019-05-09 17:13 | RADIOLOGY REPORT (SQ) ---
EXAM DESCRIPTION: PICC INSERTION; FLUORO/CV PLACEMENT; U/S GUIDE FOR VASCULAR ACCESS COMPLETED DATE/TIME: 05/09/2019 2:53 pm REASON FOR STUDY: Poor venous access, need removal of central line; IV ACCESS COMPARISON: None. FLUOROSCOPY TIME: 0.37 minutes. 1 image submitted to PACS. TECHNIQUE: Integrated into the Procedure. LIMITATIONS: None. PROCEDURE: The procedure, risks, benefits, and alternatives were discussed with the patient in the p reprocedural area, and all questions were answered. Informed consent was obtained verbally and in wri ting. The patient was then brought to the procedural suite, positioned supine on the fluoroscopy table, and a time-out was performed. At first the left upper extremity was evaluated with ultrasound and the brachial vein was found to be patent and compressible. The left upper extremity was then prepped and draped with 2% chlorhexidine utilizing standard sterile technique. After the skin over the brachial vein was anesthetized with 1% lidocaine, ultrasound guidance was used to access the vessel with a 21-gauge needle - a sonographic i mage was stored for documentation. A 0.018 inch guidewire was then inserted through the needle and ad vanced under fluoroscopic guidance into the SVC. After that, the needle was exchanged over the guidew ketty for a peel-away sheath. A 5 Latvian double -lumen PICC was then cut to the appropriate length of 4 4 cm, inserted through the sheath and advanced under fluoroscopic guidance into the SVC. After that, the peel-away sheath was removed and a fluoroscopic image of the chest was obtained to confirm proper position of the catheter tip within SVC. The lumens of the PICC were then aspirated, flushed with sterile saline and heparinized. At the end of the procedure the PICC was secured in place and a sterile dressing applied over it. The patient tolerated the procedure well without immediate complication. At the end of the procedure the patient's condition was unchanged from the preprocedural baseline. No IV conscious sedation was administered. Physiologic monitoring was provided before, during, and after the procedure. Documentation of epav-um-cfll time performing proceduralist spent monitoring the patient: 15 minutes. IMPRESSION: Successful placement of a 5 Latvian double-lumen PICC via the left brachial vein utilizin g fluoroscopic and sonographic guidance. COMMENT: Patient medication list reviewed: Yes- Quality ID# [id number]:Eligible professional attests to doc umenting in the medical record they obtained, updated, or reviewed the patient's current medications. . Quality ID 145: Final reports for procedures using fluoroscopy that document radiation exposure jamal yoanna, or exposure time and number of fluorographic images (if radiation exposure indices are not avail able) Quality ID #[id number]: The patient was prepped and draped using maximum sterile barrier technique including cap, mask, sterile gown, sterile gloves, a large sterile sheet, hand hygiene, and 2% Chlorhexidine fo r cutaneous antisepsis. When ultrasound is used, sterile ultrasound techniques are followed requiring sterile gel and sterile probes. TECHNICAL DOCUMENTATION: JOB ID: [id number] [employer]- All Rights Reserved rev-09/14 Reading location - IP/workstation name: [email or web address]
--- NOTE | 2019-05-09 17:22 | PDOC CRITICAL CARE PROG REPORT ---
General Date:: 05/09/19 ICU Day:: 7 Hospital Day:: 7 Resuscitation Status: Other - Do Not Intubate Medical Power of Technology Applications Teacher: -Mark Events in the past 12 to 24 Hours:: 05.09.2019: Patient's pain has been controlled with pain medications during the night. She is more lucid and awake and breathing more comfortably. Given the dilatation of her colon a repeat CAT scan was done to assure that no Powers syndrome existed. CT was negative for this but did show early fluid around the pancreatic head consistent with pancreatitis. She has been hemodynamically stable 05.08.2019: Patient had CT scan. Minimal significant findings. Specifically the pancreas was normal. Notably amylase/Lipase elevated. He has not been hemodynamically unstable. Abdominal discomfort has improved. 05.07.2019: Patient was extubated late afternoon and transition to high flow nasal cannula. Has been maintained on Diamox. She had slight increase in work of breathing last evening and was placed on BiPAP with improvement. She is more awake and actually conversant. She tolerated a bedside swallow evaluation without coughing. Was done on high flow nasal cannula however over time she required BiPAP. Notably the family, based on the patient's wishes, have declared the patient to not be reintubated and DNR. 05.06.2019: Patient has been weaning successfully and was placed on CPAP only today on ventilator. Secretions much improved. Bronchoscopy was done yesterday which alleviated some mucus obstruction especially in the ET tube. She has been more awake this morning and actually follow commands when asked to move her toes . She is tracking this morning as well. She is extremely agitated off her medications and she was given fentanyl and and started on Precedex. 05.05.2019: Patient continues to have improvement overall. She has been weaned off all vasopressor support. She is on fentanyl sedation and has been given intermittent Ativan. No seizures noted, no hemodynamic instability noted despite SVT and tachycardia 24 hours ago. Nurses have noted increased secretions which are somewhat bloody from the ET tube while she was on PSV yesterday. Required conventional mechanical ventilation support overnight. Review of systems relevant to events:: 05.09.2019: Day 6 of antibiotics. KUB shows feeding tube in appropriate position but dilatation of the right colon. Blood cell count is slightly higher today. She has not been tachycardic. No hypotension 05.08.2019: Day 5 of antibiotics. Chest x-ray has improved. She states that the abdominal discomfort has improved. Amylase and lipase are slightly more elevated today. No diarrhea White Blood cell count slightly elevated today but she had steroids increased to improve her lung function yesterday. Patient's respiratory status has improved and she is now been weaned to high flow nasal cannula and no longer dependent on BiPAP. She endorses that her breathing has remarkably improved. 05.07.2019: Chest x-ray shows no worsening off positive pressure. There is only a slight effusion. She endorses that she has malaise but has no distinct pain. She does have chronic pain especially in her knees but is not endorsing these. She has been on Neurontin in the past but the recalls that she had some type of reaction. 05.06.2019: Chest x-ray shows moderate improvement but left upper lobe is still positive for consolidation. She has had no hemodynamic instability. She has required intermittent fentanyl for pain and agitation. Was given Haldol. Transient increase in heart rate to 190 which responded to fentanyl earlier. 05.05.2019: Patient underwent bronchoscopy today because of secretions which showed inflammation of the left upper lobe with mild mucus and significant ET tube obstruction from biofilm and mucus. Areas were lavaged. She has been placed on pressure support after her sedation wore off. There is been no hypotension. She had been on a bicarbonate drip because of persistent acidosis and this has been discontinued secondary to alkalosis. She is also been diuresing with Lasix. Reason for ICU Addmission:: Intubated for CAP, septic shock. - Medications: Vasopressors:: None Sedation:: None Physical Exam Vital Signs: Temp Pulse Resp BP Pulse Ox 99.0 F 73 19 141/80 H 95 05/09/19 16:00 05/09/19 16:00 05/09/19 16:00 05/09/19 16:00 05/09/19 16:00 Intake & Output 05/08/19 05/09/19 05/10/19 06:59 06:59 06:59 Intake Total 489 358 Output Total 4200 1670 820 Balance -3051 -1312 -820 Weight 76.5 kg 77.1 kg Weight/Height Weight 77.1 kg Height 5 ft 6 in General appearance: PRESENT: no acute distress, cooperative, obese, well- developed, well-nourished Exam: Nontoxic, not intubated older appearing 63-year-old female no active distress. She is more awake more alert oriented to person place and Eye exam: PRESENT: conjunctiva pink, EOMI, PERRLA. ABSENT: conjunctival injection, nystagmus, scleral icterus Mouth exam: PRESENT: moist, neck supple Neck exam: PRESENT: other - Right IJ CVC clean, non-erythematous. ABSENT: carotid bruit, JVD, lymphadenopathy, thyromegaly Respiratory exam: PRESENT: clear to auscultation bill, unlabored. ABSENT: rales, rhonchi, tachypnea, wheezes Cardiovascular exam: PRESENT: RRR. ABSENT: diastolic murmur, rubs, systolic murmur Pulses: PRESENT: +1 pedal pulses bilateral GI/Abdominal exam: PRESENT: diminished bowel sounds, soft, tenderness - RUQ, Epigastric. ABSENT: ascites, distended, Giron's sign Gentrourinary exam: PRESENT: indwelling catheter Musculoskeletal exam: PRESENT: normal inspection. ABSENT: deformity, dislocation Neurological exam: PRESENT: awake, oriented to person, oriented to place, oriented to situation, CN II-XII grossly intact. ABSENT: motor sensory deficit Psychiatric exam: PRESENT: flat affect Focused psych exam: ABSENT: pressured speech, psychomotor agitation, restlessness Skin exam: PRESENT: intact. ABSENT: cyanosis, erythema, jaundice Tubes/Lines: PRESENT: Central Line, Other - Gutierrez Laboratory/Radiographs Laboratory Results: 05/09/19 04:45 05/09/19 04:45 05/09/19 05/09/19 05/09/19 04:45 04:45 04:45 WBC 14.0 H RBC 3.69 L Hgb 11.3 L Hct 34.0 L MCV 92 MCH 30.6 MCHC 33.3 RDW 14.1 H Plt Count 272 Seg Neutrophils % Not Reportable Sodium 141.5 Potassium 3.5 L Chloride 106 Carbon Dioxide 30 Anion Gap 6 BUN 23 H Creatinine 0.49 L Est GFR ( Amer) > 60 Glucose 129 H Lactic Acid Calcium 8.0 L Phosphorus 3.4 Magnesium 2.2 Total Bilirubin 0.6 AST 15 Alkaline Phosphatase 99 Ammonia 30.2 C-Reactive Protein Total Protein 4.4 L Albumin 2.3 L Triglycerides 157 H Cholesterol 111.25 LDL Cholesterol Direct Not Reportable VLDL Cholesterol 31.4 H HDL Cholesterol 25 L Amylase 197 H Lipase 1288.0 H 05/09/19 05/09/19 04:45 12:51 WBC RBC Hgb Hct MCV MCH MCHC RDW Plt Count Seg Neutrophils % Sodium Potassium Chloride Carbon Dioxide Anion Gap BUN Creatinine Est GFR ( Amer) Glucose Lactic Acid < 0.5 L Calcium Phosphorus Magnesium Total Bilirubin AST Alkaline Phosphatase Ammonia C-Reactive Protein 22.8 H Total Protein Albumin Triglycerides Cholesterol LDL Cholesterol Direct VLDL Cholesterol HDL Cholesterol Amylase Lipase 05/05/19 09:21 Bronchial Washings Chlamydia pneumoniae (PCR) - Final 05/02/19 10:38 Troponin I < 0.012 Impressions: Chest X-Ray 05/08/19 00:00 IMPRESSION: STABLE APPEARANCE OF THE CHEST. SUPPORT DEVICES UNCHANGED. Abdomen/Pelvis CT 05/09/19 00:00 IMPRESSION: 1. Fat stranding and retroperitoneal fluid about the pancreatic head, in keeping with pancreatitis, slightly increased compared to prior examination. There is small volume ascites unchanged from prior. 2. There is gas and stool in the right colon, with a decompressed distal colon. No evidence of obstruction or severe ileus. Evidence of prior rectal resection. 3. Moderate left, small right pleural effusions and associated atelectasis or consolidation, increased compared to prior examination. 4. Anasarca. KUB X-Ray 05/09/19 06:00 IMPRESSION: The tip of the Dobbhoff tube projects past the gastroesophageal junction and either within the distal stomach or proximal duodenum. All labs, radiographs, diagnostic studies and EKGs were personally reviewed: Yes In addition, reports of radiographic and diagnostic studies were read: Yes Assessment and Plan - Diagnosis (1) Acute pancreatitis without necrosis or infection, unspecified Qualifiers: Pancreatitis type: idiopathic Qualified Code(s): K85.00 - Idiopathic acute pancreatitis without necrosis or infection Is this a current diagnosis for this admission?: Yes Plan: Mild pancreatitis. Minimal changes on CT scan. (2) Septic shock Is this a current diagnosis for this admission?: Yes Plan: 05.06.2019: Resolved 05.05.2019: Improved. Off vasopressors. Start diuresis 05.04.2019: Dr. Dias:Septic shock due to pseudomonas, not pneumococcal. Still on levophed. Not resolved. (3) Pneumonia due to Pseudomonas aeruginosa Is this a current diagnosis for this admission?: Yes (4) Acute respiratory failure with hypoxia Is this a current diagnosis for this admission?: Yes (5) Acute kidney injury Is this a current diagnosis for this admission?: Yes (6) Metabolic acidosis Is this a current diagnosis for this admission?: Yes (7) Metabolic alkalosis Is this a current diagnosis for this admission?: Yes (8) SVT (supraventricular tachycardia) Is this a current diagnosis for this admission?: Yes (9) Acute exacerbation of emphysema Is this a current diagnosis for this admission?: Yes (10) Hypokalemia due to excessive renal loss of potassium Is this a current diagnosis for this admission?: Yes (11) Chronic use of steroids Is this a current diagnosis for this admission?: Yes (12) Adrenal cortex insufficiency Is this a current diagnosis for this admission?: Yes Plan: From chronic steroid use. Have transitioned to solu-medrol for lung inflammation (13) Dependence on continuous supplemental oxygen Is this a current diagnosis for this admission?: Yes (14) Emphysema of lung Qualifiers: Emphysema type: unspecified Qualified Code(s): J43.9 - Emphysema, unspecified Is this a current diagnosis for this admission?: Yes (15) Thrombocytopenia Is this a current diagnosis for this admission?: Yes Plan: From sepsis. Improved Plan Summary: 05.09.2019: Patient's respiratory status has continued to improve. Her CT scan does show effusion but her respiratory status overall not worsened despite mild pancreatitis. Has mild colonic distention with stool distally suggestive of colonic ileus. I discontinued all antiparasympathetic. She has had a small bowel movement. Been no nausea vomiting. She is tolerating tube feeds without difficulty. He started to take her p.o. meds only but we have made her n.p.o. Given the Pseudomonas will continue antibiotics for 10 days. This antibiotic is not for pancreatitis. Physical and Occupational Therapy have been ordered and are of paramount importance for this patient. Continue to control pain, follow her pancreatitis, watch for complications, Follow ionized calcium and phosphorus levels. 05.08.2019: In the last 24 hours patient has had significant improvement in her overall respiratory status. Her chest x-ray appears slightly improved despite being off positive pressure ventilation. She appears to have a chemical pancreatitis only with a negative CT. Clinically she has tenderness but it has improved significantly. KUB shows some partial dilation of the large bowel which may represent an early Powers syndrome. This is common in COPD patients and I have discontinued her antiparasympathetic medications (Atrovent). We also placed a postpyloric feeding tube at bedside to start enteral nutrition. She is now been able to swallow well and this will also help with the pancreatitis. Hopefully will be able to give her her medications as well. We have maintained her on fondaparinux until her HIT panel returns. Platelets have improved. We will continue fondaparinux At this point we have begun to institute rehabilitation with physical therapy and Occupational Therapy. Movement will be in her best interest. Is on day 6 of meropenem and will continue this for at least 7 with possibly 10 days. Literature still supports a 7-day course however we will evaluate her lung function to determine if she needs a longer course especially in light of the need for steroids. I am impressed that she continues to improve but she is still ill enough to require ICU care. We will continue to monitor her abdominal function, assure that she has good colonic function, tolerating postpyloric tube feeds and has no further worsening of her pancreatitis. We will continue her on steroids which appears to have been helpful in improving her respiratory status. We will start to wean noninvasive ventilation. 05.07.2019: Patient has persistent need for noninvasive ventilation. We were able to allow her to take oral nutrition with high flow. I am concerned that she may have an inflammatory response as well given her history of lung disease. Added a higher dose of Solu-Medrol and have discontinued Solu-Cortef. I am much concerned that she may worsen however the family and she have declined reintubation. Will additionally add diuresis with Lasix today to see if we can improve her overall situation. The arterial catheter has been ordered to be removed. No significant findings on BAL cultures except for Pseudomonas. Is on meropenem so I do not suspect that there is resistance however we would need to be concerned about this. Current guidelines given her hemodynamic stability do not advocate for dual coverage as well. To need to follow and monitor her course accordingly. Has required Precedex because of agitation during the liberation from ventilator process. We will continue to wean this as well as watch for pain control. She refused her oral antidepressant medications but will attempt to address this. Today is day 5 of antibiotics. 05.06.2019: Patient went through liberation protocol successfully and after multiple evaluations was successfully liberated from the ventilator. She was immediately placed on high flow which has been weaning over time. She has significant need for antianxiety agents and pain meds for which she appears to be chronically on. I have maintained her on Precedex to allow for her to be more awake and able to swallow her medications. She has significant emphysema and is on 5 L of oxygen. I am impressed with her overall recovery and this is a testament to the initial care and evaluation by the admitting critical care team under the management of Dr. Shanks. We will continue to wean high flow oxygenation. We will need to be vigilant to watch for further SVTs. Continue antibiotics for at least 7 to 8 days. Today is day 4 Will attempt to remove central venous catheter and Gutierrez when she is more awake. Physical therapy and Occupational Therapy have been ordered. Follow-up on BAL. 05.05.2019: From a respiratory standpoint patient has had increased secretions while on pressure support. She underwent bronchoscopy today which was positive for significant biofilm and entrained secretions in her endotracheal tube. This was cleaned and a BAL was done of the left upper lobe which showed mild to moderate inflammation. Start slow push pressure support wean with higher level of PEEP to assure prevention of atelectasis. Chest x-ray shows slight improvement in left upper lobe infiltrate however this is on positive pressure. BAL sent and will follow. From an infectious disease standpoint, patient's respiratory culture shows pansensitive Pseudomonas. This most likely represent a community-acquired which is seen in approximately 5% of the population. She is also been around significant illness with her mother who had a GI illness. Continue meropenem for a total of 7 days. Follow-up on BAL. From a cardiac standpoint her SVT has resolved and this most likely represents an acute responsive reactive tachycardia related to her sepsis. It is quiescent at this point and we will continue to monitor her while in the ICU. From an endocrine standpoint we will begin to wean steroids in the next 24 hours. Patient did present with acute renal failure as evidenced by the improvement and a level greater than 0.3 consistent with KDIGO standards/guidelines. This has improved. We will start diuresis but change to Diamox. The patient has a metabolic alkalosis and a respiratory alkalosis as well. We will start Diamox to help diurese and hold Lasix. Had been on a bicarbonate drip because of persistent acidosis and have discontinued this as well. Neurological standpoint patient is opening eyes however has been given intermittent Ativan and has been on fentanyl. I have discontinued all of these and will watch for neurological improvement. There are no focal findings and she is moving extremities to stimulus. Overall plans for today are continued ventilator wean at higher PEEP and reduction in sedation. Continue antibiotics for total of 7 days. Diuresis with Diamox and follow labs because of her hypokalemia. Critical Time Critical Time (minutes): 42 Level of Care: ICU Anticipated discharge: SNF, Acute Rehab Within: within 72 hours -: 1. The care of a critical patient is a dynamic process. This note is a sales solutions representative synopsis but static in nature. The timeframe for treatments given in order is not necessarily the actual time these treatments may have been done. 2. This patient requires critical care secondary to ongoing requirements for therapy not offered or safe outside the critical care environment. Transfer to a lower level of care will result in altered life or limb morbidity and mortality. 3. Multidisciplinary rounds completed. 4. ABCDE bundle addressed.
[2019-05-09] MEDS: LACTULOSE SYRUP 20 GM/30 ML UDCUP NG SCH (21:32)
[2019-05-09] MEDS: SENNOSIDES/DOCUSATE 8.6-50 MG 1 EACH TABLET PO SCH (21:34)
[2019-05-09] MEDS: TRAZODONE HCL 50 MG TABLET PO SCH (21:34)
[2019-05-10] MEDS ORDERED: ONDANSETRON HCL INJ/PF 4 MG/2 ML SDV ONE (02:07)
[2019-05-10] MEDS: LACTULOSE SYRUP 20 GM/30 ML UDCUP NG SCH ×2 (02:22→11:04)
[2019-05-10 03:45] LABS: HEMATOCRIT 33.7 % (36.0-47.0); HEMOGLOBIN 11.1 g/dL (12.0-15.5); MEAN CORPUSCULAR HEMOGLOBIN 30.6 pg (27.0-33.4); MEAN CORPUSCULAR VOLUME 93 fl (80-97); PLATELET COUNT 284 10^3/uL (150-450); RED BLOOD COUNT 3.63 10^6/uL (3.72-5.28); RED CELL DISTRIBUTION WIDTH 14.4 % (11.5-14.0); WHITE BLOOD COUNT 16.7 10^3/uL (4.0-10.5)
[2019-05-10] MEDS ORDERED: ONDANSETRON HCL INJ/PF 4 MG/2 ML SDV IV ONE (03:45)
[2019-05-10 04:01] LABS: BLOOD UREA NITROGEN 19 mg/dL (7-20); GLUCOSE 117 mg/dL (75-110); PHOSPHORUS 3.7 mg/dL (2.5-4.5); POTASSIUM 3.7 mmol/L (3.6-5.0)
[2019-05-10 04:07] LABS: CARBON DIOXIDE 32 mmol/L (22-30); CHLORIDE 104 mmol/L (98-107)
[2019-05-10 04:10] LABS: ANION GAP 3 (5-19)
[2019-05-10 04:12] LABS: ABSOLUTE LYMPHOCYTES# (MANUAL) 0.2 10^3/uL (0.5-4.7); ABSOLUTE MONOCYTES # (MANUAL) 0.3 10^3/uL (0.1-1.4); BASOPHILS % (MANUAL) 0 % (0-2); EOSINOPHILS % (MANUAL) 0 % (0-6); LYMPHOCYTES % (MANUAL) 1 % (13-45); MONOCYTES % (MANUAL) 2 % (3-13); SEGMENTED NEUTROPHILS % (MAN) 97 % (42-78); TOTAL CELLS COUNTED 100
[2019-05-10 04:14] LABS: ANISOCYTOSIS SLIGHT; BURR CELLS SLIGHT; OVALOCYTES SLIGHT; PLATELET COMMENT ADEQUATE; POIKILOCYTOSIS SLIGHT; SCHISTOCYTES SLIGHT; TOXIC GRANULATION SLIGHT
--- NOTE | 2019-05-10 08:02 | RADIOLOGY REPORT (SQ) ---
EXAM DESCRIPTION: CHEST SINGLE VIEW COMPLETED DATE/TIME: 05/10/2019 6:13 am REASON FOR STUDY: f/u infiltrate COMPARISON: 05/08/2019 FINDINGS: One view AP portable upright. Appropriately positioned left PICC line with tip to the superior vena cava. Feeding tube likely down. Difficult to see distally. No pneumothorax. Stable appearance of the lungs. Focal airspace disease and pleural thickening left apex. Dense consolidation with small effusion lef t base. TECHNICAL DOCUMENTATION: JOB ID: [id number] Reading location - IP/workstation name: [email or web address]
[2019-05-10] MEDS: ALBUTEROL SULFATE 0.083% NEB 2.5 MG/3 ML AMPUL NEB SCH ×4 (09:18→20:06)
[2019-05-10] MEDS: FONDAPARINUX SODIUM INJ 2.5 MG/0.5 ML DISP.SYRIN SUBCUT SCH (11:03)
[2019-05-10] MEDS: PAROXETINE HCL 20 MG TABLET NG SCH (11:03)
[2019-05-10] MEDS: BUSPIRONE HCL 10 MG TABLET NG SCH (11:03)
[2019-05-10] MEDS: METHYLPREDNISOLONE INJ 40 MG/1 ML SDV IV SCH ×2 (11:03→21:16)
--- NOTE | 2019-05-10 11:50 | PDOC CRITICAL CARE PROG REPORT ---
General Date:: 05/10/19 ICU Day:: 8 Hospital Day:: 8 Resuscitation Status: Other - Do Not Intubate Medical Power of Application Operations Engineer: -Mark Events in the past 12 to 24 Hours:: 05.10.2019: Patient has had no further abdominal pain. He did have nausea last evening requiring Zofran but did not have any significant emesis. She was started on a bowel regimen and she has started to have bowel movements with this. She currently is sitting up watching a movie in bed. High flow has been discontinued and she is appropriately oxygenating on nasal cannula. As noted in her admission information she is on 5 L of oxygen at home. She is tolerating postpyloric tube feeds. 05.09.2019: Patient's pain has been controlled with pain medications during the night. She is more lucid and awake and breathing more comfortably. Given the dilatation of her colon a repeat CAT scan was done to assure that no Jeyson syndrome existed. CT was negative for this but did show early fluid around the pancreatic head consistent with pancreatitis. She has been hemodynamically stable 05.08.2019: Patient had CT scan. Minimal significant findings. Specifically the pancreas was normal. Notably amylase/Lipase elevated. He has not been hemodynamically unstable. Abdominal discomfort has improved. 05.07.2019: Patient was extubated late afternoon and transition to high flow nasal cannula. Has been maintained on Diamox. She had slight increase in work of breathing last evening and was placed on BiPAP with improvement. She is more awake and actually conversant. She tolerated a bedside swallow evaluation without coughing. Was done on high flow nasal cannula however over time she required BiPAP. Notably the family, based on the patient's wishes, have declared the patient to not be reintubated and DNR. 05.06.2019: Patient has been weaning successfully and was placed on CPAP only today on ventilator. Secretions much improved. Bronchoscopy was done yesterday which alleviated some mucus obstruction especially in the ET tube. She has been more awake this morning and actually follow commands when asked to move her toes. She is tracking this morning as well. She is extremely agitated off her medications and she was given fentanyl and and started on Precedex. 05.05.2019: Patient continues to have improvement overall. She has been weaned off all vasopressor support. She is on fentanyl sedation and has been given intermittent Ativan. No seizures noted, no hemodynamic instability noted despite SVT and tachycardia 24 hours ago. Nurses have noted increased secretions which are somewhat bloody from the ET tube while she was on PSV yesterday. Required conventional mechanical ventilation support overnight. Review of systems relevant to events:: 05.10.2019: Day 7 of meropenem.'s x-ray shows continued improvement in effusion appears improved as well. Amylase and lipase are still pending. There has been no melena or hematochezia. She does not endorse abdominal pain. Respiratory status has improved and she is breathing at 14-16 times a minute no longer requiring BiPAP or noninvasive high flow She is weaned off Precedex 05.09.2019: Day 6 of antibiotics. KUB shows feeding tube in appropriate position but dilatation of the right colon. Blood cell count is slightly higher today. She has not been tachycardic. No hypotension 05.08.2019: Day 5 of antibiotics. Chest x-ray has improved. She states that the abdominal discomfort has improved. Amylase and lipase are slightly more elevated today. No diarrhea White Blood cell count slightly elevated today but she had steroids increased to improve her lung function yesterday. Patient's respiratory status has improved and she is now been weaned to high flow nasal cannula and no longer dependent on BiPAP. She endorses that her breathing has remarkably improved. 05.07.2019: Chest x-ray shows no worsening off positive pressure. There is only a slight effusion. She endorses that she has malaise but has no distinct pain. She does have chronic pain especially in her knees but is not endorsing these. She has been on Neurontin in the past but the recalls that she had some type of reaction. 05.06.2019: Chest x-ray shows moderate improvement but left upper lobe is still positive for consolidation. She has had no hemodynamic instability. She has required intermittent fentanyl for pain and agitation. Was given Haldol. Tra nsient increase in heart rate to 190 which responded to fentanyl earlier. 05.05.2019: Patient underwent bronchoscopy today because of secretions which showed inflammation of the left upper lobe with mild mucus and significant ET tube obstruction from biofilm and mucus. Areas were lavaged. She has been placed on pressure support after her sedation wore off. There is been no hypotension. She had been on a bicarbonate drip because of persistent acidosis and this has been discontinued secondary to alkalosis. She is also been diuresing with Lasix. Reason for ICU Addmission:: Intubated for CAP, septic shock. - Medications: Medications reviewed and adjusted accordingly: Yes Vasopressors:: None Sedation:: None Physical Exam Vital Signs: Temp Pulse Resp BP Pulse Ox 98.8 F 79 22 H 154/80 H 96 05/10/19 11:00 05/10/19 10:00 05/10/19 11:00 05/10/19 10:38 05/10/19 11:00 Intake & Output 05/09/19 05/10/19 05/11/19 06:59 06:59 06:59 Intake Total 358 492 Output Total 1670 1870 300 Balance -1312 -1378 -300 Weight 77.1 kg 78.3 kg Weight/Height Weight 78.3 kg Height 5 ft 6 in General appearance: PRESENT: no acute distress, well-developed, well-nourished Exam: Dramatically improved nontoxic still slightly ill-appearing 63-year-old female. She is awake aware oriented x4. Sitting upright watching a movie on her iPad. Head exam: PRESENT: atraumatic, normocephalic Eye exam: PRESENT: conjunctiva pink, EOMI, PERRLA. ABSENT: conjunctival injection, nystagmus, scleral icterus Mouth exam: PRESENT: moist, neck supple Neck exam: ABSENT: carotid bruit, JVD, lymphadenopathy, thyromegaly Respiratory exam: PRESENT: clear to auscultation bill, unlabored. ABSENT: accessory muscle use, rales, rhonchi, tachypnea, wheezes Cardiovascular exam: PRESENT: RRR. ABSENT: diastolic murmur, rubs, systolic murmur Pulses: PRESENT: +1 pedal pulses bilateral GI/Abdominal exam: PRESENT: normal bowel sounds, soft. ABSENT: ascites, firm, guarding, mass, Giron's sign, rigid, tenderness Rectal exam: PRESENT: deferred Gentrourinary exam: PRESENT: indwelling catheter Extremities exam: ABSENT: pedal edema Musculoskeletal exam: ABSENT: deformity, dislocation Neurological exam: PRESENT: alert, awake, oriented to person, oriented to place, oriented to time, oriented to situation, CN II-XII grossly intact. ABSENT: motor sensory deficit Psychiatric exam: PRESENT: appropriate affect, normal mood Focused psych exam: ABSENT: pressured speech Skin exam: PRESENT: dry, intact, warm. ABSENT: cyanosis, petechiae, rash Tubes/Lines: PRESENT: Central Line, Other - PICC line Laboratory/Radiographs Laboratory Results: 05/10/19 03:30 05/10/19 03:30 05/09/19 05/10/19 05/10/19 12:51 03:30 03:30 WBC 16.7 H RBC 3.63 L Hgb 11.1 L Hct 33.7 L MCV 93 MCH 30.6 MCHC 33.0 RDW 14.4 H Plt Count 284 Seg Neutrophils % Not Reportable Sodium 138.9 Potassium 3.7 Chloride 104 Carbon Dioxide 32 H Anion Gap 3 L BUN 19 Creatinine 0.40 L Est GFR ( Amer) > 60 Glucose 117 H Calcium 8.0 L Phosphorus 3.7 Magnesium 2.1 C-Reactive Protein 22.8 H 05/02/19 10:38 Troponin I < 0.012 Impressions: Abdomen/Pelvis CT 05/09/19 00:00 IMPRESSION: 1. Fat stranding and retroperitoneal fluid about the pancreatic head, in keeping with pancreatitis, slightly increased compared to prior examina tion. There is small volume ascites unchanged from prior. 2. There is gas and stool in the right colon, with a decompressed distal colon. No evidence of obstruction or severe ileus. Evidence of prior rectal resection. 3. Moderate left, small right pleural effusions and associated atelectasis or consolidation, increased compared to prior examination. 4. Anasarca. Guidance Fluoroscopy 05/09/19 00:00 IMPRESSION: Successful placement of a 5 [place] double-lumen PICC via the left brachial vein utilizing fluoroscopic and sonographic guidance. Interventional Vascular Procedure 05/09/19 00:00 IMPRESSION: Successful placement of a 5 [place] double-lumen PICC via the left brachial vein utilizing fluoroscopic and sonographic guidance. PICC Line Insertion 05/09/19 00:00 IMPRESSION: Successful placement of a 5 [place] double-lumen PICC via the left brachial vein utilizing fluoroscopic and sonographic guidance. KUB X-Ray 05/09/19 06:00 IMPRESSION: The tip of the Dobbhoff tube projects past the gastroesophageal junction and either within the distal stomach or proximal duodenum. All labs, radiographs, diagnostic studies and EKGs were personally reviewed: Yes In addition, reports of radiographic and diagnostic studies were read: Yes Assessment and Plan - Diagnosis (1) Acute pancreatitis without necrosis or infection, unspecified Qualifiers: Pancreatitis type: idiopathic Qualified Code(s): K85.00 - Idiopathic acute pancreatitis without necrosis or infection Is this a current diagnosis for this admission?: Yes Plan: Mild pancreatitis. Minimal changes on CT scan. Clinically imroving (2) Septic shock Is this a current diagnosis for this admission?: Yes Plan: 05.06.2019: Resolved 05.05.2019: Improved. Off vasopressors. Start diuresis 05.04.2019: Dr. Dias:Septic shock due to pseudomonas, not pneumococcal. Still on levophed. Not resolved. (3) Pneumonia due to Pseudomonas aeruginosa Is this a current diagnosis for this admission?: Yes Plan: Improved. Continue antibiotics for 10 days (4) Acute respiratory failure with hypoxia Is this a current diagnosis for this admission?: Yes (5) Acute kidney injury Is this a current diagnosis for this admission?: Yes Plan: Improved (6) Metabolic acidosis Is this a current diagnosis for this admission?: Yes (7) Metabolic alkalosis Is this a current diagnosis for this admission?: Yes (8) SVT (supraventricular tachycardia) Is this a current diagnosis for this admission?: Yes Plan: 05.05.2019: Resolved. Quiescent 05.04.2019: Dr. Dias:One episode to 190 associated with brief hypotension to 68/43. Resolved with adenosine 6mg. Likely due to stress hormones such as epinephrine and to an extent norepinephrine. On esmolol drip to blunt catacholamines. (9) Acute exacerbation of emphysema Is this a current diagnosis for this admission?: Yes (10) Hypokalemia due to excessive renal loss of potassium Is this a current diagnosis for this admission?: Yes (11) Chronic use of steroids Is this a current diagnosis for this admission?: Yes (12) Adrenal cortex insufficiency Is this a current diagnosis for this admission?: Yes (13) Dependence on continuous supplemental oxygen Is this a current diagnosis for this admission?: Yes (14) Emphysema of lung Qualifiers: Emphysema type: unspecified Qualified Code(s): J43.9 - Emphysema, uns pecified Is this a current diagnosis for this admission?: Yes (15) Thrombocytopenia Is this a current diagnosis for this admission?: Yes Plan: From sepsis. Improved Plan Summary: 05.10.2019: Patient has had a significant and remarkable recovery. She is out of bed and was able to ambulate to her chair on her own. He is now on nasal cannula therapy. We will check amylase and lipase but given her improved clinical status I expect this to be improved. Start oral nutrition and follow her clinical exam to determine if this exacerbates pancreatitis. If this does not and she is able to tolerate food for 24 hours we will discontinue the postpyloric feeding tube. I am very impressed with this patient's recovery and continue to apply the efforts of the admitting team and the nurses that have cared for her conscientiously throughout her stay. The mortality and morbidity associated with Pseudomonas pneumonia is high and given this patient's baseline severe emphysema, represents an example of the efforts of the team caring for her. Plans for today are to remove central venous catheter, remove Gutierrez catheter, continue physical and Occupational Therapy and begin the process of evaluation for rehabilitation or discharge to home. Patient does have significant emphysema and may have continued inflammation associated with this and the Pseudomonas. To that end we will continue the meropenem for a total of 10 days. In the initial studies on 7 days of antibiotic therapy gram-negative's were also included. Of interest the only recrudescent disease was seen with Pseudomonas patients but of utmost importance was that the Pseudomonas characteristics had changed. And hopeful that the additional 3 days will contribute to an improvement in this patient's already improving condition. We will begin diuresis today to decrease the amount of effusion. It is not unusual to have effusion associated with pancreatitis and pneumonia. In situations where the patient's condition is not improving it is generally advised to do thoracentesis. However given this patient's emphysema, her significant improvement in overall improved clinical status we have elected to try diuresis first. Her white count is slightly elevated hopefully reflecting a combination of the steroids which were used for pulmonary inflammation and the pancreatitis. Although this is high her clinical status is dramatically improved and I do not think this is an evidence of an occult infection. Should this number continue to rise and her clinical status worsen we will be forced to perform thoracentesis. Her chest x-ray has significantly improved. From a cytopenia has improved and she has responded appropriately. We will continue fondaparinux. HIT panel still pending but feel that low platelets are from Sepsis. 05.09.2019: Patient's respiratory status has continued to improve. Her CT scan does show effusion but her respiratory status overall not worsened despite mild pancreatitis. Has mild colonic distention with stool distally suggestive of colonic ileus. I discontinued all antiparasympathetic. She has had a small bowel movement. Been no nausea vomiting. She is tolerating tube feeds without difficulty. He started to take her p.o. meds only but we have made her n.p.o. Given the Pseudomonas will continue antibiotics for 10 days. This antibiotic is not for pancreatitis. Physical and Occupational Therapy have been ordered and are of paramount importance for this patient. Continue to control pain, follow her pancreatitis, watch for complications, Follow ionized calcium and phosphorus levels. 05.08.2019: In the last 24 hours patient has had significant improvement in her overall respiratory status. Her chest x-ray appears slightly improved despite being off positive pressure ventilation. She appears to have a chemical pancreatitis only with a negative CT. Clinically she has tenderness but it has improved significantly. KUB shows some partial dilation of the large bowel which may represent an early Sacaton syndrome. This is common in COPD patients and I have discontinued her antiparasympathetic medications (Atrovent). We also placed a postpyloric feeding tube at bedside to start enteral nutrition. She is now been able to swallow well and this will also help with the pancreatitis. Hopefully will be able to give her her medications as well. We have maintained her on fondaparinux until her HIT panel returns. Platelets have improved. We will continue fondaparinux At this point we have begun to institute rehabilitation with physical therapy and Occupational Therapy. Movement will be in her best interest. Is on day 6 of meropenem and will continue this for at least 7 with possibly 10 days. Literature still supports a 7-day course however we will evaluate her lung function to determine if she needs a longer course especially in light of the need for steroids. I am impressed that she continues to improve but she is still ill enough to require ICU care. We will continue to monitor her abdominal function, assure that she has good colonic function, tolerating postpyloric tube feeds and has no further worsening of her pancreatitis. We will continue her on steroids which appears to have been helpful in improving her respiratory status. We will start to wean noninvasive ventilation. 05.07.2019: Patient has persistent need for noninvasive ventilation. We were able to allow her to take oral nutrition with high flow. I am concerned that she may have an inflammatory response as well given her history of lung disease. Added a higher dose of Solu-Medrol and have discontinued Solu-Cortef. I am much concerned that she may worsen however the family and she have declined reintubation. Will additionally add diuresis with Lasix today to see if we can improve her overall situation. The arterial catheter has been ordered to be removed. No significant findings on BAL cultures except for Pseudomonas. Is on meropenem so I do not suspect that there is resistance however we would need to be concerned about this. Current guidelines given her hemodynamic stability do not advocate for dual coverage as well. To need to follow and monitor her course accordingly. Has required Precedex because of agitation during the liberation from ventilator process. We will continue to wean this as well as watch for pain control. She refused her oral antidepressant medications but will attempt to address this. Today is day 5 of antibiotics. 05.06.2019: Patient went through liberation protocol successfully and after multiple evaluations was successfully liberated from the ventilator. She was immediately placed on high flow which has been weaning over time. She has significant need for antianxiety agents and pain meds for which she appears to be chronically on. I have maintained her on Precedex to allow for her to be more awake and able to swallow her medications. She has significant emphysema and is on 5 L of oxygen. I am impressed with her overall recovery and this is a testament to the initial care and evaluation by the admitting critical care team under the management of Dr. Shanks. We will continue to wean high flow oxygenation. We will need to be vigilant to watch for further SVTs. Continue antibiotics for at least 7 to 8 days. Today is day 4 Will attempt to remove central venous catheter and Gutierrez when she is more awake. Physical therapy and Occupational Therapy have been ordered. Follow-up on BAL. 05.05.2019: From a respiratory standpoint patient has had increased secretions while on pressure support. She underwent bronchoscopy today which was positive for significant biofilm and entrained secretions in her endotracheal tube. This was cleaned and a BAL was done of the left upper lobe which showed mild to moderate inflammation. Start slow push pressure support wean with higher level of PEEP to assure prevention of atelectasis. Chest x-ray shows slight improvement in left upper lobe infiltrate however this is on positive pressure. BAL sent and will follow. From an infectious disease standpoint, patient's respiratory culture shows pansensitive Pseudomonas. This most likely represent a community-acquired which is seen in approximately 5% of the population. She is also been around significant illness with her mother who had a GI illness. Continue meropenem for a total of 7 days. Follow-up on BAL. From a cardiac standpoint her SVT has resolved and this most likely represents an acute responsive reactive tachycardia related to her sepsis. It is quiescent at this point and we will continue to monitor her while in the ICU. From an endocrine standpoint we will begin to wean steroids in the next 24 hours. Patient did present with acute renal failure as evidenced by the improvement and a level greater than 0.3 consistent with KDIGO standards/guidelines. This has improved. We will start diuresis but change to Diamox. The patient has a metabolic alkalosis and a respiratory alkalosis as well. We will start Diamox to help diurese and hold Lasix. Had been on a bicarbonate drip because of persistent acidosis and have discontinued this as well. Neurological standpoint patient is opening eyes however has been given intermittent Ativan and has been on fentanyl. I have discontinued all of these and will watch for neurological improvement. There are no focal findings and she is moving extremities to stimulus. Overall plans for today are continued ventilator wean at higher PEEP and reduction in sedation. Continue antibiotics for total of 7 days. Diuresis with Diamox and follow labs because of her hypokalemia. Critical Time Critical Time (minutes): 0 - 9923 Level of Care: IMCU Anticipated discharge: Acute Rehab Within: within 48 hours -: 1. The care of a critical patient is a dynamic process. This note is a represe ntative synopsis but static in nature. The timeframe for treatments given in order is not necessarily the actual time these treatments may have been done. 2. This patient requires critical care secondary to ongoing requirements for therapy not offered or safe outside the critical care environment. Transfer to a lower level of care will result in altered life or limb morbidity and mortality. 3. Multidisciplinary rounds completed. 4. ABCDE bundle addressed.
[2019-05-10] MEDS: MEROPENEM 1 GM in NORMAL SALINE 50 ML IV SCH (18:30)
[2019-05-10] MEDS: IBUPROFEN 800 MG TABLET PO PRN (18:37)
[2019-05-10] MEDS: SENNOSIDES/DOCUSATE 8.6-50 MG 1 EACH TABLET PO SCH (21:15)
[2019-05-10] MEDS: TRAZODONE HCL 50 MG TABLET PO SCH (21:16)
[2019-05-10] MEDS: FUROSEMIDE INJ/PF 20 MG/2 ML SDV IV SCH (21:17)
[2019-05-10] MEDS ORDERED: FUROSEMIDE INJ/PF 20 MG/2 ML SDV IV ONE (21:30)
[2019-05-10] MEDS: LACTULOSE SYRUP 20 GM/30 ML UDCUP PO SCH (23:06)
[2019-05-11] MEDS: FUROSEMIDE INJ/PF 20 MG/2 ML SDV IV SCH ×2 (05:46→18:24)
[2019-05-11] MEDS: MEROPENEM 1 GM in NORMAL SALINE 50 ML IV SCH ×2 (05:49→18:25)
[2019-05-11 06:35] LABS: HEMATOCRIT 32.7 % (36.0-47.0); HEMOGLOBIN 10.9 g/dL (12.0-15.5); MEAN CORPUSCULAR HEMOGLOBIN 30.7 pg (27.0-33.4); MEAN CORPUSCULAR HGB CONC 33.3 g/dL (32.0-36.0); MEAN CORPUSCULAR VOLUME 92 fl (80-97); PLATELET COUNT 272 10^3/uL (150-450); RED BLOOD COUNT 3.55 10^6/uL (3.72-5.28); WHITE BLOOD COUNT 14.1 10^3/uL (4.0-10.5)
[2019-05-11 06:59] LABS: ALBUMIN 2.5 g/dL (3.5-5.0); ALKALINE PHOSPHATASE 85 U/L (38-126); AMYLASE 309 U/L (30-110); ASPARTATE AMINO TRANSFERASE 16 U/L (14-36); BILIRUBIN,DIRECT 0.3 mg/dL (0.0-0.4); BILIRUBIN,TOTAL 0.9 mg/dL (0.2-1.3); BLOOD UREA NITROGEN 15 mg/dL (7-20); CALCIUM 8.1 mg/dL (8.4-10.2); GLUCOSE 84 mg/dL (75-110); PHOSPHORUS 3.4 mg/dL (2.5-4.5); POTASSIUM 3.9 mmol/L (3.6-5.0); TOTAL PROTEIN 4.9 g/dL (6.3-8.2)
[2019-05-11 07:01] LABS: ABSOLUTE LYMPHOCYTES# (MANUAL) 0.3 10^3/uL (0.5-4.7); ABSOLUTE MONOCYTES # (MANUAL) 0.3 10^3/uL (0.1-1.4); BASOPHILS % (MANUAL) 0 % (0-2); EOSINOPHILS % (MANUAL) 0 % (0-6); LYMPHOCYTES % (MANUAL) 1 % (13-45); MONOCYTES % (MANUAL) 2 % (3-13); PLATELET COMMENT ADEQUATE; RBC MORPHOLOGY COMMENT NORMO-CYTIC/CHROMIC; SEGMENTED NEUTROPHILS % (MAN) 96 % (42-78); TOTAL CELLS COUNTED 100
[2019-05-11 07:04] LABS: ANION GAP 5 (5-19); CARBON DIOXIDE 33 mmol/L (22-30); CHLORIDE 99 mmol/L (98-107)
[2019-05-11] MEDS ORDERED: NORMAL SALINE 10 ML SDV (AFTER EACH USE) IV PRN (07:30)
[2019-05-11] MEDS: ALBUTEROL SULFATE 0.083% NEB 2.5 MG/3 ML AMPUL NEB SCH ×4 (08:02→20:02)
[2019-05-11] MEDS: PAROXETINE HCL 20 MG TABLET NG SCH (09:18)
[2019-05-11] MEDS: BUSPIRONE HCL 10 MG TABLET NG SCH (09:18)
[2019-05-11] MEDS: NORMAL SALINE 10 ML SDV (SCHEDULED) IV SCH ×2 (09:18→21:11)
[2019-05-11] MEDS: METHYLPREDNISOLONE INJ 40 MG/1 ML SDV IV SCH ×2 (09:18→21:10)
[2019-05-11] MEDS: FONDAPARINUX SODIUM INJ 2.5 MG/0.5 ML DISP.SYRIN SUBCUT SCH (09:19)
[2019-05-11] MEDS: LACTULOSE SYRUP 20 GM/30 ML UDCUP PO SCH ×2 (09:19→21:11)
[2019-05-11] MEDS ORDERED: [UNRECOGNIZED DRUG - OTHER] PO SCH (10:00)
[2019-05-11] MEDS ORDERED: TIOTROPIUM BROMIDE PO SCH (10:00)
--- NOTE | 2019-05-11 10:22 | PDOC PROGRESS REPORT ---
Subjective Progress Note for:: 05/11/19 Subjective:: 63-year-old female has medical history of COPD, presented to ED on 05/02/2019 with altered mental status, in ED she was found to have left lower lobe pneumonia was intubated in ED and transferred to ICU. Was found to have Pseudomonas pneumonia was a started on meropenem, extubated on 05/06/2019 while in ICU she developed acute pancreatitis. Transfered to floor on 05/10/2019. 05/11/2019. No acute events overnight. Patient currently resting in bed in no apparent distress, on nasal cannula, p.o. tolerant, would like her diet to be changed to regular diet, denies any fever, chills, nausea, vomiting, diarrhea, abdominal pain, chest pain or any urinary symptoms. Reason For Visit: CAP,COPD,ACUTE RESPIRATORY FAILURE,PROBABLE SEPTIC Physical Exam Vital Signs: Temp Pulse Resp BP Pulse Ox 98.8 F 75 16 141/67 H 98 05/11/19 08:48 05/11/19 08:48 05/11/19 08:48 05/11/19 08:48 05/11/19 08:48 Intake & Output 05/10/19 05/11/19 05/12/19 06:59 06:59 06:59 Intake Total 492 750 Output Total 1870 375 Balance -1378 375 Weight 78.3 kg 73.2 kg General appearance: PRESENT: no acute distress, well-developed, well-nourished Head exam: PRESENT: atraumatic, normocephalic Respiratory exam: PRESENT: clear to auscultation bill. ABSENT: rales, rhonchi, wheezes Cardiovascular exam: PRESENT: RRR. ABSENT: diastolic murmur, rubs, systolic murmur GI/Abdominal exam: PRESENT: normal bowel sounds, soft. ABSENT: distended, guarding, mass, organolmegaly, rebound, tenderness Neurological exam: PRESENT: alert, awake, oriented to person, oriented to place, oriented to time, oriented to situation, CN II-XII grossly intact. ABSENT: motor sensory deficit Results Laboratory Results: 05/11/19 04:58 05/11/19 04:58 05/10/19 05/11/19 05/11/19 11:30 04:58 04:58 WBC 14.1 H RBC 3.55 L Hgb 10.9 L Hct 32.7 L MCV 92 MCH 30.7 MCHC 33.3 RDW 14.0 Plt Count 272 Seg Neutrophils % Not Reportable Sodium 136.7 L Potassium 3.9 Chloride 99 Carbon Dioxide 33 H Anion Gap 5 BUN 15 Creatinine 0.41 L Est GFR ( Amer) > 60 Glucose 84 Calcium 8.1 L Phosphorus 3.4 Magnesium 2.1 Total Bilirubin 0.9 AST 16 Alkaline Phosphatase 85 Total Protein 4.9 L Albumin 2.5 L Amylase 332 H 309 H Lipase 1765.7 H 1588.4 H 05/02/19 10:38 Troponin I < 0.012 Impressions: Abdomen/Pelvis CT 05/09/19 00:00 IMPRESSION: 1. Fat stranding and retroperitoneal fluid about the pancreatic head, in keeping with pancreatitis, slightly increased compared to prior examination. There is small volume ascites unchanged from prior. 2. There is gas and stool in the right colon, with a decompressed distal colon. No evidence of obstruction or severe ileus. Evidence of prior rectal resection. 3. Moderate left, small right pleural effusions and associated atelectasis or consolidation, increased compared to prior examination. 4. Anasarca. Guidance Fluoroscopy 05/09/19 00:00 IMPRESSION: Successful placement of a 5 Jordanian double-lumen PICC via the left brachial vein utilizing fluoroscopic and sonographic guidance. Interventional Vascular Procedure 05/09/19 00:00 IMPRESSION: Successful placement of a 5 Jordanian double-lumen PICC via the left brachial vein utilizing fluoroscopic and sonographic guidance. PICC Line Insertion 05/09/19 00:00 IMPRESSION: Successful placement of a 5 Jordanian double-lumen PICC via the left brachial vein utilizing fluoroscopic and sonographic guidance. KUB X-Ray 05/09/19 06:00 IMPRESSION: The tip of the Dobbhoff tube projects past the gastroesophageal junction and either within the distal stomach or proximal duodenum. Assessment and Plan - Diagnosis (1) Pneumonia due to Pseudomonas aeruginosa Is this a current diagnosis for this admission?: Yes Plan: Afebrile. WBC WNL. SPO2 WNL on 4 L. Due to pseudomonas aeruginosa. Bronchial washing culture from 05/05/2019 came back positive for for pseudomonas aeruginosa sensitive to quinolones, beta lactams and carbapenms. Day 10 IV antibiotics. Day 9/10 IV meropenem. Received 1 day of IV levofloxacin. Repeat cultures negative. Continue meropenem for another day. (2) Acute respiratory failure with hypoxia Is this a current diagnosis for this admission?: Yes Plan: Due to pneumonia complicated by septic shock and underlying oxygen dependent COPD. Improved. Back to baseline. SPO2 WNL on 4 L. Continue duo nebs, pulmonary toileting, flutter valve, incentive spirometry, LABA, LABA, ICS. (3) Acute pancreatitis without necrosis or infection, unspecified Qualifiers: Pancreatitis type: idiopathic Qualified Code(s): K85.00 - Idiopathic acute pancreatitis without necrosis or infection Is this a current diagnosis for this admission?: Yes Plan: Improving. Patient p.o. tolerant. Having normal bowel and bladder movement. Denying any abdominal pain. Lipase trending down. Minimal changes on CT scan. Monitor vitals. Advance diet as tolerated. Supportive measures. (4) Metabolic acidosis Is this a current diagnosis for this admission?: Yes Plan: Resolved. (5) Septic shock Is this a current diagnosis for this admission?: Yes Plan: Resolved. Mostly due to underlying pneumonia. Initially transferred to ICU where she was intubated. Started on aggressive volume resuscitation and pressors and empiric IV antibiotics. Vitals WNL. Blood cultures negative. (6) SVT (supraventricular tachycardia) Is this a current diagnosis for this admission?: Yes Plan: Sinus rhythm. Continue beta-blockers. (7) COPD exacerbation Is this a current diagnosis for this admission?: Yes Plan: History of oxygen dependent COPD. 4 L/min at home. Plan as per #2. (8) Acute kidney injury Is this a current diagnosis for this admission?: Yes Plan: Prerenal. Due to septic shock. Resolved. Euvolemic. Electrolytes WNL. Continue monitoring electrolytes and volume status. Avoid nephrotoxic meds.
[2019-05-11] MEDS: TRAZODONE HCL 50 MG TABLET PO SCH (21:10)
[2019-05-11] MEDS: SENNOSIDES/DOCUSATE 8.6-50 MG 1 EACH TABLET PO SCH (21:12)
[2019-05-12] MEDS: MEROPENEM 1 GM in NORMAL SALINE 50 ML IV SCH ×2 (06:00→17:41)
[2019-05-12] MEDS: FUROSEMIDE INJ/PF 20 MG/2 ML SDV IV SCH ×2 (06:01→17:40)
[2019-05-12 06:42] LABS: HEMATOCRIT 29.5 % (36.0-47.0); MEAN CORPUSCULAR HEMOGLOBIN 31.4 pg (27.0-33.4); MEAN CORPUSCULAR HGB CONC 33.8 g/dL (32.0-36.0); MEAN CORPUSCULAR VOLUME 93 fl (80-97); PLATELET COUNT 237 10^3/uL (150-450); RED BLOOD COUNT 3.17 10^6/uL (3.72-5.28); RED CELL DISTRIBUTION WIDTH 14.3 % (11.5-14.0); WHITE BLOOD COUNT 10.7 10^3/uL (4.0-10.5)
[2019-05-12 06:54] LABS: BLOOD UREA NITROGEN 9 mg/dL (7-20); CALCIUM 7.9 mg/dL (8.4-10.2); CHLORIDE 96 mmol/L (98-107); GLUCOSE 96 mg/dL (75-110)
[2019-05-12 06:59] LABS: CARBON DIOXIDE 38 mmol/L (22-30)
[2019-05-12 07:03] LABS: ANION GAP 0 (5-19)
[2019-05-12 07:20] LABS: ABSOLUTE LYMPHOCYTES# (MANUAL) 0.9 10^3/uL (0.5-4.7); ABSOLUTE MONOCYTES # (MANUAL) 0.4 10^3/uL (0.1-1.4); BASOPHILS % (MANUAL) 0 % (0-2); EOSINOPHILS % (MANUAL) 0 % (0-6); LYMPHOCYTES % (MANUAL) 8 % (13-45); MONOCYTES % (MANUAL) 4 % (3-13); SEGMENTED NEUTROPHILS % (MAN) 88 % (42-78); TOTAL CELLS COUNTED 100
[2019-05-12 07:23] LABS: ANISOCYTOSIS SLIGHT; OVALOCYTES SLIGHT; PLATELET COMMENT ADEQUATE; TEAR DROP CELLS SLIGHT
[2019-05-12] MEDS: ALBUTEROL SULFATE 0.083% NEB 2.5 MG/3 ML AMPUL NEB SCH ×4 (08:02→20:26)
[2019-05-12] MEDS: METHYLPREDNISOLONE INJ 40 MG/1 ML SDV IV SCH ×2 (09:33→22:42)
[2019-05-12] MEDS: BUSPIRONE HCL 10 MG TABLET NG SCH (09:33)
[2019-05-12] MEDS: FONDAPARINUX SODIUM INJ 2.5 MG/0.5 ML DISP.SYRIN SUBCUT SCH (09:34)
[2019-05-12] MEDS: PAROXETINE HCL 20 MG TABLET NG SCH (09:34)
[2019-05-12] MEDS: LACTULOSE SYRUP 20 GM/30 ML UDCUP PO SCH ×2 (09:35→22:43)
[2019-05-12] MEDS: NORMAL SALINE 10 ML SDV (SCHEDULED) IV SCH ×2 (09:35→22:43)
--- NOTE | 2019-05-12 10:21 | PDOC PROGRESS REPORT ---
Subjective Progress Note for:: 05/12/19 Subjective:: 63-year-old female has medical history of COPD, presented to ED on 05/02/2019 with altered mental status, in ED she was found to have left lower lobe pneumonia was intubated in ED and transferred to ICU. Was found to have Pseudomonas pneumonia was a started on meropenem, extubated on 05/06/2019 while in ICU she developed acute pancreatitis. Transfered to floor on 05/10/2019. 05/11/2019. No acute events overnight. Patient currently resting in bed in no apparent distress, on nasal cannula, p.o. tolerant, would like her diet to be changed to regular diet, denies any fever, chills, nausea, vomiting, diarrhea, abdominal pain, chest pain or any urinary symptoms. 05/29/2019. No acute events overnight. Patient p.o. tolerant, now having normal bowel and bladder movements, abdominal pain has improved. Patient was able to get off of her bed with some assistance. Denies any fever, chills, nausea, vomiting, diarrhea, constipation or any urinary symptoms. Patient pending rehab evaluation and possibly rehab transfer. Reason For Visit: CAP,COPD,ACUTE RESPIRATORY FAILURE,PROBABLE SEPTIC Physical Exam Vital Signs: Temp Pulse Resp BP Pulse Ox 98.3 F 79 16 130/66 H 100 05/12/19 08:13 05/12/19 08:13 05/12/19 08:13 05/12/19 08:13 05/12/19 08:13 Intake & Output 05/11/19 05/12/19 05/13/19 06:59 06:59 06:59 Intake Total 750 1130 Output Total 375 2100 Balance 375 -970 Weight 73.2 kg 72.8 kg General appearance: PRESENT: no acute distress, well-developed, well-nourished Head exam: PRESENT: atraumatic, normocephalic Respiratory exam: PRESENT: clear to auscultation bill. ABSENT: rales, rhonchi, wheezes Cardiovascular exam: PRESENT: RRR. ABSENT: diastolic murmur, rubs, systolic murmur GI/Abdominal exam: PRESENT: normal bowel sounds, soft. ABSENT: distended, guarding, mass, organolmegaly, rebound, tenderness Neurological exam: PRESENT: alert, awake, oriented to person, oriented to place, oriented to time, oriented to situation, CN II-XII grossly intact. ABSENT: motor sensory deficit Results Laboratory Results: 05/12/19 06:00 05/12/19 06:00 05/12/19 05/12/19 06:00 06:00 WBC 10.7 H RBC 3.17 L Hgb 10.0 L Hct 29.5 L MCV 93 MCH 31.4 MCHC 33.8 RDW 14.3 H Plt Count 237 Seg Neutrophils % Not Reportable Sodium 134.1 L Potassium 4.0 Chloride 96 L Carbon Dioxide 38 H Anion Gap 0 L BUN 9 Creatinine 0.42 L Est GFR ( Amer) > 60 Glucose 96 Calcium 7.9 L 05/02/19 10:38 Troponin I < 0.012 Impressions: Abdomen/Pelvis CT 05/09/19 00:00 IMPRESSION: 1. Fat stranding and retroperitoneal fluid about the pancreatic head, in keeping with pancreatitis, slightly increased compared to prior examination. There is small volume ascites unchanged from prior. 2. There is gas and stool in the right colon, with a decompressed distal colon. No evidence of obstruction or severe ileus. Evidence of prior rectal resection. 3. Moderate left, small right pleural effusions and associated atelectasis or consolidation, increased compared to prior examination. 4. Anasarca. Guidance Fluoroscopy 05/09/19 00:00 IMPRESSION: Successful placement of a 5 Bulgarian double-lumen PICC via the left brachial vein utilizing fluoroscopic and sonographic guidance. Interventional Vascular Procedure 05/09/19 00:00 IMPRESSION: Successful placement of a 5 Bulgarian double-lumen PICC via the left brachial vein utilizing fluoroscopic and sonographic guidance. PICC Line Insertion 05/09/19 00:00 IMPRESSION: Successful placement of a 5 Bulgarian double-lumen PICC via the left brachial vein utilizing fluoroscopic and sonographic guidance. KUB X-Ray 05/09/19 06:00 IMPRESSION: The tip of the Dobbhoff tube projects past the gastroesophageal junction and either within the distal stomach or proximal duodenum. Assessment and Plan - Diagnosis (1) Pneumonia due to Pseudomonas aeruginosa Is this a current diagnosis for this admission?: Yes Plan: Afebrile. WBC WNL. SPO2 WNL on 4 L. Due to pseudomonas aeruginosa. Bronchial washing culture from 05/05/2019 came back positive for for pseudomonas aeruginosa sensitive to quinolones, beta lactams and carbapenms. Day 10 IV antibiotics. Day 10/10 IV meropenem. Received 1 day of IV levofloxacin. Received 10 days of IV meropenem. DCd meropenem 05/12/2019. Repeat cultures negative. (2) Acute respiratory failure with hypoxia Is this a current diagnosis for this admission?: Yes Plan: Due to pneumonia complicated by septic shock and underlying oxygen dependent COPD. Improved. Back to baseline. SPO2 WNL on 4 L. Continue duo nebs, pulmonary toileting, flutter valve, incentive spirometry, LABA, LABA, ICS. (3) Acute pancreatitis without necrosis or infection, unspecified Qualifiers: Pancreatitis type: idiopathic Qualified Code(s): K85.00 - Idiopathic acute pancreatitis without necrosis or infection Is this a current diagnosis for this admission?: Yes Plan: Patient p.o. tolerant. Having normal bowel and bladder movement. Denying any abdominal pain. Lipase trending down. Minimal changes on CT scan. Monitor vitals. Advance diet as tolerated. Supportive measures. (4) Metabolic acidosis Is this a current diagnosis for this admission?: Yes Plan: Resolved. (5) Septic shock Is this a current diagnosis for this admission?: Yes Plan: Resolved. Mostly due to underlying pneumonia. Initially transferred to ICU where she was intubated. Started on aggressive volume resuscitation and pressors and empiric IV antibiotics. Vitals WNL. Blood cultures negative. (6) SVT (supraventricular tachycardia) Is this a current diagnosis for this admission?: Yes Plan: Sinus rhythm. Continue beta-blockers. (7) COPD exacerbation Is this a current diagnosis for this admission?: Yes Plan: History of oxygen dependent COPD. 4 L/min at home. Plan as per #2. (8) Acute kidney injury Is this a current diagnosis for this admission?: Yes Plan: Prerenal. Due to septic shock. Resolved. Euvolemic. Electrolytes WNL. Continue monitoring electrolytes and volume status. Avoid nephrotoxic meds.
[2019-05-12] MEDS: IBUPROFEN 800 MG TABLET PO PRN (17:44)
[2019-05-12] MEDS: TRAZODONE HCL 50 MG TABLET PO SCH (22:41)
[2019-05-12] MEDS: SENNOSIDES/DOCUSATE 8.6-50 MG 1 EACH TABLET PO SCH (22:44)
[2019-05-13] MEDS: FUROSEMIDE INJ/PF 20 MG/2 ML SDV IV SCH (05:40)
[2019-05-13] MEDS: MEROPENEM 1 GM in NORMAL SALINE 50 ML IV SCH (05:40)
[2019-05-13 06:11] LABS: HEMATOCRIT 29.8 % (36.0-47.0); HEMOGLOBIN 10.2 g/dL (12.0-15.5); MEAN CORPUSCULAR HEMOGLOBIN 31.5 pg (27.0-33.4); MEAN CORPUSCULAR HGB CONC 34.2 g/dL (32.0-36.0); MEAN CORPUSCULAR VOLUME 92 fl (80-97); PLATELET COUNT 233 10^3/uL (150-450); RED BLOOD COUNT 3.23 10^6/uL (3.72-5.28); RED CELL DISTRIBUTION WIDTH 14.4 % (11.5-14.0); WHITE BLOOD COUNT 10.8 10^3/uL (4.0-10.5)
[2019-05-13 06:26] LABS: BLOOD UREA NITROGEN 10 mg/dL (7-20); CARBON DIOXIDE 38 mmol/L (22-30); CHLORIDE 93 mmol/L (98-107); GLUCOSE 115 mg/dL (75-110); POTASSIUM 4.2 mmol/L (3.6-5.0)
[2019-05-13 06:30] LABS: ANION GAP 3 (5-19)
[2019-05-13 06:41] LABS: ABSOLUTE LYMPHOCYTES# (MANUAL) 0.1 10^3/uL (0.5-4.7); ABSOLUTE MONOCYTES # (MANUAL) 0.2 10^3/uL (0.1-1.4); BASOPHILS % (MANUAL) 0 % (0-2); EOSINOPHILS % (MANUAL) 0 % (0-6); HYPERSEGMENTED NEUTROPHILS PRESENT; LYMPHOCYTES % (MANUAL) 1 % (13-45); MONOCYTES % (MANUAL) 2 % (3-13); PLATELET CLUMPS PRESENT; PLATELET COMMENT ADEQUATE; RBC MORPHOLOGY COMMENT NORMO-CYTIC/CHROMIC; SEGMENTED NEUTROPHILS % (MAN) 97 % (42-78); TOTAL CELLS COUNTED 100
[2019-05-13] MEDS: BUSPIRONE HCL 10 MG TABLET NG SCH (09:02)
[2019-05-13] MEDS: LACTULOSE SYRUP 20 GM/30 ML UDCUP PO SCH (09:02)
[2019-05-13] MEDS: FONDAPARINUX SODIUM INJ 2.5 MG/0.5 ML DISP.SYRIN SUBCUT SCH (09:02)
[2019-05-13] MEDS: PAROXETINE HCL 20 MG TABLET NG SCH (09:03)
[2019-05-13] MEDS: METHYLPREDNISOLONE INJ 40 MG/1 ML SDV IV SCH (09:03)
[2019-05-13] MEDS: NORMAL SALINE 10 ML SDV (SCHEDULED) IV SCH (09:03)
[2019-05-13] MEDS: ALBUTEROL SULFATE 0.083% NEB 2.5 MG/3 ML AMPUL NEB SCH (09:08)
[2019-05-13 09:14] VITALS: BP 122/56
--- NOTE | 2019-05-13 15:02 | PDOC DISCHARGE SUMMARY ---
Impression - Admit/DC Date/PCP Admission Date/Primary Care Provider: 05/02/19 13:41 Discharge Date: 05/13/19 - Discharge Diagnosis (1) Pneumonia due to Pseudomonas aeruginosa Is this a current diagnosis for this admission?: Yes (2) Acute respiratory failure with hypoxia Is this a current diagnosis for this admission?: Yes (3) Acute pancreatitis without necrosis or infection, unspecified Is this a current diagnosis for this admission?: Yes (4) Metabolic acidosis Is this a current diagnosis for this admission?: Yes (5) Septic shock Is this a current diagnosis for this admission?: Yes (6) SVT (supraventricular tachycardia) Is this a current diagnosis for this admission?: Yes (7) COPD exacerbation Is this a current diagnosis for this admission?: Yes (8) Acute kidney injury Is this a current diagnosis for this admission?: Yes - Additional Information Resuscitation Status: Do Not Resuscitate Discharge Diet: As Tolerated Discharge Activity: Activity As Tolerated Referrals: Dr. Cyndee Valdes MD [Other] - 05/20/19 2:15 pm Prescriptions: Ipratropium/Albuterol Sulfate [Combivent Respimat 4 gm Mdi] 1 puff IH Q6 30 Days #1 aer.w.adap Nystatin [Mycostatin 208121 Unit/1 ml Susp 60 ml Btl] 100,000 unit PO BID PRN 30 Days #1 ml PRN Reason: Home Medications: Buspirone HCl [Buspar 15 mg Tablet] 1 tab PO DAILY 05/02/19 Nystatin [Mycostatin 672943 Unit/mL Susp 60 mL] 5 ml PO BID 05/02/19 Pantoprazole Sodium [Protonix [address] Tablet] 40 mg PO DAILY 05/02/19 Paroxetine HCl [Paxil 20 mg Tablet] 20 mg PO DAILY 05/02/19 Prednisone 10 mg PO DAILY 05/02/19 Promethazine HCl [Phenergan 25 mg Tablet] 25 mg PO Q6HP PRN 05/02/19 Sennosides/Docusate Sodium [Docusate Sodium-Senna Tablet] 6 each PO QHS 05/02/19 Tiotropium [place] [Spiriva Handihaler 5 Cap/Kit (18 Mcg/Cap)] 1 dose PO DAILY 05/02/19 Trazodone HCl [Desyrel] 100 mg PO QHS 05/02/19 Ipratropium/Albuterol Sulfate [Combivent Respimat 4 gm Mdi] 1 puff IH Q6 30 Days #1 aer.w.adap 05/13/19 Nystatin [Mycostatin 128442 Unit/1 ml Susp 60 ml Btl] 100,000 unit PO BID PRN 30 Days #1 ml 05/13/19 History of Present Illiness History of Present Illness: 63-year-old female has medical history of COPD, presented to ED on 05/02/2019 with altered mental status, in ED she was found to have left lower lobe pneumonia was intubated in ED and transferred to ICU. Was found to have Pseudomonas pneumonia was a started on meropenem, extubated on 05/06/2019 while in ICU she developed acute pancreatitis. Transfered to floor on 05/10/2019. Hospital Course Hospital Course: (1) Pneumonia due to Pseudomonas aeruginosa Afebrile. WBC WNL. SPO2 WNL on 4 L. Due to pseudomonas aeruginosa. Bronchial washing culture from 05/05/2019 came back positive for for pseudomonas aeruginosa sensitive to quinolones, beta lactams and carbapenms. Received 11 days of IV antibiotics. Received 10 days of IV meropenem. Received 1 day of IV levofloxacin. Repeat cultures all negative. (2) Acute respiratory failure with hypoxia Due to pneumonia complicated by septic shock and underlying oxygen dependent COPD. Improved. Back to baseline. History of oxygen dependent COPD. On 4 L NC at home. SPO2 WNL on 4 L. Was a started on duo nebs, pulmonary toileting, flutter valve, incentive spirometry, LABA, LAMA, ICS. Discharged on duo nebs and LABA. (3) Acute pancreatitis without necrosis or infection, unspecified Resolved. Patient p.o. tolerant. Having normal bowel and bladder movement. Denies any abdominal pain on discharge. Minimal changes on CT scan. Was a started on IV fluids, supportive measures. (4) Metabolic acidosis Resolved. (5) Septic shock Resolved. Most likely this was due to underlying pneumonia. Initially transferred to ICU where she was intubated. Started on aggressive volume resuscitation and pressors and empiric IV antibiotics. While in the floor patient received PT OT. No rehab was indicated. Patient was discharged home with home PT/OT, home health and nursing center tutor. Vitals WNL. Blood cultures negative. (6) SVT (supraventricular tachycardia) Sinus rhythm. Was a started on beta-blockers. Discharge on beta-blockers and was advised to follow-up with PCP and cardiology. (7) COPD exacerbation History of oxygen dependent COPD. 4 L/min at home. Plan as per #2. (8) Acute kidney injury Prerenal. Due to septic shock. Resolved. Euvolemic. Electrolytes WNL. Monitored volume status and electrolytes. Avoided nephrotoxic meds. Advised patient to follow-up with PCP and nephrology if needed. Physical Exam Vital Signs: Temp Pulse Resp BP Pulse Ox 98.8 F 88 18 85/62 L 100 05/13/19 08:51 05/13/19 08:51 05/13/19 08:51 05/13/19 08:51 05/13/19 08:51 Intake & Output 05/12/19 05/13/19 05/14/19 06:59 06:59 06:59 Intake Total 1130 1452 Output Total 2100 1851 Balance -970 -399 Weight 72.8 kg 68.7 kg General appearance: PRESENT: no acute distress, well-developed, well-nourished Head exam: PRESENT: atraumatic, normocephalic Respiratory exam: PRESENT: clear to auscultation bill. ABSENT: rales, rhonchi, wheezes Cardiovascular exam: PRESENT: RRR. ABSENT: diastolic murmur, rubs, systolic murmur GI/Abdominal exam: PRESENT: normal bowel sounds, soft. ABSENT: distended, guarding, mass, organolmegaly, rebound, tenderness Extremities exam: PRESENT: full ROM. ABSENT: calf tenderness, clubbing, pedal edema Neurological exam: PRESENT: alert, awake, oriented to person, oriented to place, oriented to time, oriented to situation, CN II-XII grossly intact. ABSENT: motor sensory deficit Results Laboratory Results: WBC 10.8 10^3/uL (4.0-10.5) H 05/13/19 05:46 RBC 3.23 10^6/uL (3.72-5.28) L 05/13/19 05:46 Hgb 10.2 g/dL (12.0-15.5) L 05/13/19 05:46 Hct 29.8 % (36.0-47.0) L 05/13/19 05:46 MCV 92 fl (80-97) 05/13/19 05:46 MCH 31.5 pg (27.0-33.4) 05/13/19 05:46 MCHC 34.2 g/dL (32.0-36.0) 05/13/19 05:46 RDW 14.4 % (11.5-14.0) H 05/13/19 05:46 Plt Count 233 10^3/uL (150-450) 05/13/19 05:46 Lymph % (Auto) Not Reportable 05/13/19 05:46 [place] % (Auto) Not Reportable 05/13/19 05:46 Eos % (Auto) Not Reportable 05/13/19 05:46 Baso % (Auto) Not Reportable 05/13/19 05:46 Absolute Neuts (auto) Not Reportable 05/13/19 05:46 Absolute Lymphs (auto) Not Reportable 05/13/19 05:46 Absolute Monos (auto) Not Reportable 05/13/19 05:46 Absolute Eos (auto) Not Reportable 05/13/19 05:46 Absolute Basos (auto) Not Reportable 05/13/19 05:46 Total Counted 100 05/13/19 05:46 Seg Neutrophils % Not Reportable 05/13/19 05:46 Seg Neuts % (Manual) 97 % (42-78) H 05/13/19 05:46 Band Neutrophils % 1 % (3-5) L 05/03/19 04:08 Lymphocytes % (Manual) 1 % (13-45) L 05/13/19 05:46 Atypical Lymphs % 1 % (0) 05/11/19 04:58 Monocytes % (Manual) 2 % (3-13) L 05/13/19 05:46 Eosinophils % (Manual) 0 % (0-6) 05/13/19 05:46 Basophils % (Manual) 0 % (0-2) 05/13/19 05:46 Abs Neuts (Manual) 10.5 10^3/uL (1.7-8.2) H 05/13/19 05:46 Abs Lymphs (Manual) 0.1 10^3/uL (0.5-4.7) L 05/13/19 05:46 Abs Monocytes (Manual) 0.2 10^3/uL (0.1-1.4) 05/13/19 05:46 Absolute Eos (Manual) 0.0 10^3/uL (0.0-0.6) 05/13/19 05:46 Abs Basophils (Manual) 0.0 10^3/uL (0.0-0.2) 05/13/19 05:46 Hypersegmented Neuts PRESENT 05/13/19 05:46 Toxic Granulation SLIGHT 05/10/19 03:30 Toxic Vacuolation PRESENT 05/04/19 04:13 Dohle Bodies PRESENT 05/03/19 04:08 Clumped Platelets PRESENT 05/13/19 05:46 Large Platelets PRESENT 05/02/19 10:38 Platelet Comment ADEQUATE 05/13/19 05:46 Polychromasia SLIGHT 05/02/19 10:38 Poikilocytosis SLIGHT 05/10/19 03:30 Anisocytosis SLIGHT 05/12/19 06:00 Tear Drop Cells SLIGHT 05/12/19 06:00 Ovalocytes SLIGHT 05/12/19 06:00 [place] Cells SLIGHT 05/10/19 03:30 Schistocytes SLIGHT 05/10/19 03:30 RBC Morph Comment NORMO-CYTIC/CHROMIC 05/13/19 05:46 PT 14.5 SEC (11.4-15.4) 05/02/19 10:38 INR 1.12 05/02/19 10:38 Carbonic Acid 1.31 mmol/L (1.05-1.35) 05/07/19 05:44 HCO3/H2CO3 Ratio 18:1 05/07/19 05:44 ABG pH 7.37 (7.35-7.45) 05/07/19 05:44 ABG pCO2 43.5 mmHg (35-45) 05/07/19 05:44 ABG pO2 73.7 mmHg (80-100) L 05/07/19 05:44 ABG HCO3 24.4 mmol/L (20-24) H 05/07/19 05:44 ABG Total CO2 25.7 mmol/L (21-25) H 05/07/19 05:44 ABG O2 Saturation 94.4 % (94-98) 05/07/19 05:44 ABG Base Excess -1.0 mmol/L 05/07/19 05:44 VBG pH 7.25 (7.30-7.42) L 05/02/19 10:51 VBG pCO2 62.4 mmHg (35-63) 05/02/19 10:51 VBG HCO3 26.7 mmol/L (20-32) 05/02/19 10:51 VBG Base Excess -1.7 mmol/L 05/02/19 10:51 FiO2 30% 05/07/19 05:44 Sodium 133.5 mmol/L (137-145) L 05/13/19 05:46 Potassium 4.2 mmol/L (3.6-5.0) 05/13/19 05:46 Chloride 93 mmol/L (98-107) L 05/13/19 05:46 Carbon Dioxide 38 mmol/L (22-30) H 05/13/19 05:46 Anion Gap 3 (5-19) L 05/13/19 05:46 BUN 10 mg/dL (7-20) 05/13/19 05:46 Creatinine 0.41 mg/dL (0.52-1.25) L 05/13/19 05:46 Est GFR ( Amer) > 60 (>60) 05/13/19 05:46 Est GFR (MDRD) Non-Af > 60 (>60) 05/13/19 05:46 Glucose 115 mg/dL (75-110) H 05/13/19 05:46 POC Glucose 134 mg/dL (70-110) H 05/10/19 12:53 Lactic Acid < 0.5 mmol/L (0.7-2.1) L 05/09/19 04:45 Calcium 8.0 mg/dL (8.4-10.2) L 05/13/19 05:46 Ionized Calcium [place] 1.06 mmol/L (1.14-1.30) L 05/05/19 05:25 Phosphorus 3.4 mg/dL (2.5-4.5) 05/11/19 04:58 Magnesium 2.1 mg/dL (1.6-2.3) 05/11/19 04:58 Total Bilirubin 0.9 mg/dL (0.2-1.3) 05/11/19 04:58 Direct Bilirubin 0.3 mg/dL (0.0-0.4) 05/11/19 04:58 Neonat Total Bilirubin Not Reportable 05/11/19 04:58 Neonat Direct Bilirubin Not Reportable 05/11/19 04:58 Neonat Indirect Bili Not Reportable 05/11/19 04:58 AST 16 U/L (14-36) 05/11/19 04:58 ALT 31 U/L (<35) 05/11/19 04:58 Alkaline Phosphatase 85 U/L (38-126) 05/11/19 04:58 Ammonia 30.2 umol/L (9-33) 05/09/19 04:45 Troponin I < 0.012 ng/mL 05/02/19 10:38 C-Reactive Protein 22.8 mg/L (<10.0) H 05/09/19 12:51 Total Protein 4.9 g/dL (6.3-8.2) L 05/11/19 04:58 Albumin 2.5 g/dL (3.5-5.0) L 05/11/19 04:58 Triglycerides 157 mg/dL (<150) H 05/09/19 04:45 Cholesterol 111.25 mg/dL (0-200) 05/09/19 04:45 LDL Cholesterol Direct Not Reportable 05/09/19 04:45 VLDL Cholesterol 31.4 mg/dL (10-31) H 05/09/19 04:45 HDL Cholesterol 25 mg/dL (>40) L 05/09/19 04:45 Amylase 309 U/L (30-110) H 05/11/19 04:58 Lipase 1588.4 U/L (23-300) H 05/11/19 04:58 Fluid Type BRONCHIAL WASH 05/05/19 09:21 Fluid Source LUNG 05/05/19 09:21 Fluid Color PINK 05/05/19 09:21 Fluid Appearance CLOUDY 05/05/19 09:21 Fluid Viscosity LIQUID 05/05/19 09:21 Fluid WBC 481 /uL 05/05/19 09:21 Fluid RBC 1650 /uL 05/05/19 09:21 Fluid Seg Neutrophils 92 % 05/05/19 09:21 Fluid Lymphocytes 7 % 05/05/19 09:21 Fluid Monocytes 1 % 05/05/19 09:21 Fluid Eosinophils 0 % 05/05/19 09:21 Fluid Basophils 0 % 05/05/19 09:21 Heparin-induced Plt Ab 0.117 OD (0.000-0.40) 05/08/19 15:30 Influenza A (Rapid) NEGATIVE (NEGATIVE) 05/02/19 18:15 Influenza B (Rapid) NEGATIVE (NEGATIVE) 05/02/19 18:15 AFB Smear NO ACID FAST BACILLI (NO AFB SEEN) 05/05/19 09:36 05/02/19 10:38 Troponin I < 0.012 Impressions: Chest X-Ray 05/02/19 00:00 IMPRESSION: 1. Endotracheal tube tip overlies midthoracic trachea. 2. Anterior to overlies distal esophagus. Recommend repositioning and advancing at least 10 cm. 3. Right internal jugular central venous catheter tip at cavoatrial junction. No pneumothorax. Chest X-Ray 05/02/19 10:36 IMPRESSION: Extensive left upper lobe airspace disease compatible with pneumonia. Small left parapneumonic effusion. KUB X-Ray 05/02/19 13:24 IMPRESSION: Nasogastric tube tip in the stomach, side port at the GE junction. Mild persistent gaseous distention of the stomach. Chest X-Ray 05/04/19 04:58 IMPRESSION: Moderate patchy opacification-effusion of the left lower lobe-base. Interval worsening. Chest X-Ray 05/05/19 00:00 IMPRESSION: No significant change compared to the prior exam. copyright 2010 [employer]- All Rights Reserved Chest X-Ray 05/06/19 06:00 IMPRESSION: SLIGHT IMPROVEMENT IN THE DENSE INFILTRATE OF THE LEFT UPPER LOBE. Abdomen/Pelvis CT 05/07/19 00:00 IMPRESSION: Small pleural effusions as described. Mild subsegmental atelectasis in the left lower lobe. There is some free fluid in the pelvis. There is mild subcutaneous edema. Chest X-Ray 05/07/19 06:00 IMPRESSION: No acute cardiopulmonary process. Chest X-Ray 05/08/19 00:00 IMPRESSION: STABLE APPEARANCE OF THE CHEST. SUPPORT DEVICES UNCHANGED. KUB X-Ray 05/08/19 00:00 IMPRESSION: A feeding tube has its tip in the 2nd portion the duodenum. There is airspace disease in the left base, atelectasis versus consolidation. There appears to be a left pleural effusion. Abdomen/Pelvis CT 05/09/19 00:00 IMPRESSION: 1. Fat stranding and retroperitoneal fluid about the pancreatic head, in keeping with pancreatitis, slightly increased compared to prior examination. There is small volume ascites unchanged from prior. 2. There is gas and stool in the right colon, with a decompressed distal colon. No evidence of obstruction or severe ileus. Evidence of prior rectal resection. 3. Moderate left, small right pleural effusions and associated atelectasis or consolidation, increased compared to prior examination. 4. Anasarca. Guidance Fluoroscopy 05/09/19 00:00 IMPRESSION: Successful placement of a 5 [place] double-lumen PICC via the left brachial vein utilizing fluoroscopic and sonographic guidance. Interventional Vascular Procedure 05/09/19 00:00 IMPRESSION: Successful placement of a 5 [place] double-lumen PICC via the left brachial vein utilizing fluoroscopic and sonographic guidance. PICC Line Insertion 05/09/19 00:00 IMPRESSION: Successful placement of a 5 [place] double-lumen PICC via the left brachial vein utilizing fluoroscopic and sonographic guidance. KUB X-Ray 05/09/19 06:00 IMPRESSION: The tip of the Dobbhoff tube projects past the gastroesophageal junction and either within the distal stomach or proximal duodenum. Stroke Is this a Stroke Patient?: No Acute Heart Failure - Is this a Heart Failure Patient?: No
== END 2019-05-13 10:14 | disposition home health service (06) | DRG 871 ==
LOC: ER 10:32 → EH 13:41 → ICU 14:45 → 3N 05-10 18:12
PROVIDERS: ADMIT Anesthesiology; ATTEND Hospitalist
PROC: 5A1945Z Respiratory Ventilation, 24-96 Consecutive Hours (ICD-10-PCS; principal; 2019-05-02)
PROC: 0BH17EZ Insertion of Endotracheal Airway into Trachea, Via Natural or Artificial Opening (ICD-10-PCS; 2019-05-02)
PROC: 02HV33Z Insertion of Infusion Device into Superior Vena Cava, Percutaneous Approach (ICD-10-PCS; 2019-05-02)
PROC: 0B9L7ZX Drainage of Left Lung, Via Natural or Artificial Opening, Diagnostic (ICD-10-PCS; 2019-05-02)
PROC: 0DH97UZ Insertion of Feeding Device into Duodenum, Via Natural or Artificial Opening (ICD-10-PCS; 2019-05-02)
DX: A41.9 Sepsis, unspecified organism (principal); J96.01 Acute respiratory failure with hypoxia; R65.21 Severe sepsis with septic shock; J15.1 Pneumonia due to Pseudomonas; K85.00 Idiopathic acute pancreatitis without necrosis or infection; N17.9 Acute kidney failure, unspecified; E87.2 Acidosis; E87.3 Alkalosis; E27.40 Unspecified adrenocortical insufficiency; I47.1 Supraventricular tachycardia; D69.6 Thrombocytopenia, unspecified; J43.9 Emphysema, unspecified; E87.6 Hypokalemia; Z99.81 Dependence on supplemental oxygen; Z79.52 Long term (current) use of systemic steroids; Z79.899 Other long term (current) drug therapy
CPT/HCPCS: 31622; 36415; 36556; 36569; 43761; 51702; 71045; 74018; 74177; 76937; 77001; 80048; 80053; 80061; 80076; 82140; 82150; 82330; 82803; 82962; 83605; 83690; 83735; 84100; 84132; 84484; 85025; 85610; 86022; 86140; 87015; 87040; 87070; 87077; 87101; 87116; 87186; 87205; 87206; 87252; 87486; 87804; 88305; 89050; 93005; 93010; 94002; 94003; 94640; 94660; 96365; 96367; 96375; 99291; B4155; C1751; J0153; J0330; J0456; J0610; J0696; J1120; J1630; J1642; J1650; J1652; J1720; J1940; J1956; J2060; J2185; J2250; J2370; J2405; J2543; J2704; J2920; J2930; J2997; J3010; J3360; J3475; J3480; J3490; J7030; J7060; J7620; P9047; S0028